=== PATIENT | female | born 1965 | race Caucasian/White ===

== ENCOUNTER → 2017-12-08 09:09 | Outpatient (CLI) | payer OTHER, SELFPAY ==
--- NOTE | 2017-12-08 09:11 | FL_ITS ---
EXAM: Barium swallow/esophagram. INDICATION: ORDERING PHYSICIAN: Louie Michel MD PATIENT AGE: 52 years COMPARISON: None TECHNIQUE: In the upright position the patient was observed to swallow barium in both the AP and lateral view. The cervical esophagus was examined under fluoroscopy with images obtained. The patient was then placed prone in the right anterior oblique position and was observed to swallow barium with Valsalva technique . FLUOROSCOPY TIME: 55 seconds FINDINGS: There was no evidence of aspiration. There was normal peristalsis. There was some minimal protrusion of the mid aspect of the esophagus toward the left. This however was not persistent and could be related to development of an early diverticulum. There was questionable indentation upon the left aspect of the esophagus just distal to this region however, this did not appear to persist. There is a small sliding hiatal hernia noted with Valsalva. No mucosal irregularities apparent. IMPRESSION: 1. Small sliding hiatal hernia noted with Valsalva. 2. Minimal protrusion of the mid aspect esophagus toward the left and could be related to early traction diverticulum. Follow-up may confirm.
== END ==
PROVIDERS: Family Provider Emergency Medicine; PCP Physician Assistant; Visit Provider Surgery
DX: R13.10 Dysphagia, unspecified (principal)
CPT/HCPCS: 74220

== ENCOUNTER → 2018-02-09 09:06 | Outpatient (REF) | payer OTHER, SELFPAY ==
[2018-02-09 14:01] LABS: Basophils % 0.7 % (0.1-2.0); Eosinophils # 0.2 K/mm3 (0.0-0.4); Eosinophils % 3.4 % (0.1-12.0); Hematocrit 39.6 % (37.0-47.0); Hemoglobin 12.9 g/dL (12.2-16.2); Lymphocytes # 1.8 K/mm3 (0.7-4.5); Lymphocytes % 30.3 K/mm3 (10-50); Mean Corpuscular HGB Conc 32.7 g/dL (31.8-35.4); Mean Corpuscular Hemoglobin 29.5 pg (27.0-31.2); Mean Corpuscular Volume 90.3 fl (81-99); Mean Platelet Volume 8.7 fl (7.4-10.4); Monocytes # 0.2 K/mm3 (0.1-1.0); Monocytes % 3.8 % (1.7-9.3); Neutrophils # 3.6 K/mm3 (1.8-7.8); Neutrophils % 61.8 % (37.0-80.0); Platelet Count 211 K/mm3 (142-424); Red Blood Count 4.38 M/mm3 (4.20-5.40); Red Cell Distribution Width 13.1 % (11.5-17.5); White Blood Count 5.8 K/mm3 (4.8-10.8)
[2018-02-09 14:35] LABS: Alanine Aminotransferase 24 U/L (12-78); Albumin/Globulin Ratio 1.3 (1.1-1.8); Alkaline Phosphatase 79 U/L (46-116); Anion Gap 12.3 mEq/L (5-15); Aspartate Amino Transferase 19 U/L (15-37); Bilirubin,Total 0.8 mg/dL (0.2-1.0); Blood Urea Nitrogen 13 mg/dL (7-18); Calcium 9.6 mg/dL (8.5-10.1); Carbon Dioxide 29 mmol/L (21.0-32.0); Chloride 106 mmol/L (98-107); Chol/HDL Ratio 4.3 (1-3.5); Cholesterol 217 mg/dL (140-200); Creatinine,Serum 0.84 mg/dL (0.55-1.02); Estimated Glomerular Filt Rate 71 ml/min (>60); GFR (African American) 86 ML/MIN (>60); Globulin 3.1 gm/dl (1.3-3.2); Glucose 86 mg/dL (74-106); HDL Cholesterol 50 mg/dL (29-89); LDL Cholesterol 154 mg/dL (0-130); Potassium 4.3 mmoL/L (3.5-5.1); Sodium 143 mmol/L (136-145); T4 (Thyroxine) 4.7 ug/dl (4.7-13.3); Thyroid Stimulating Hormone 82.83 uIU/ml (0.358-3.740); Total Protein,Serum 7.1 gm/dL (6.4-8.2); Triglycerides 64 mg/dL (30-200); VLDL Cholesterol 13 mg/dL (0-40)
[2018-02-10 07:44] LABS: Vitamin D 25 Hydroxy 40.2 ng/mL (30.0-100.0)
== END ==
LOC: LAB 09:06
PROVIDERS: Visit Provider Physician Assistant
DX: E03.9 Hypothyroidism, unspecified (principal)
CPT/HCPCS: 80053; 80061; 82652; 84436; 84443; 85025

== ENCOUNTER → 2018-07-08 14:38 | Outpatient (REF) | payer OTHER, SELFPAY ==
[2018-07-08 19:11] LABS: Basophils % 0.5 % (0.1-2.0); Eosinophils # 0.3 K/mm3 (0.0-0.4); Eosinophils % 5.3 % (0.1-12.0); Hematocrit 38.7 % (37.0-47.0); Hemoglobin 12.2 g/dL (12.2-16.2); Lymphocytes # 1.7 K/mm3 (0.7-4.5); Lymphocytes % 33.3 K/mm3 (10-50); Mean Corpuscular HGB Conc 31.5 g/dL (31.8-35.4); Mean Corpuscular Volume 88.8 fl (81-99); Mean Platelet Volume 8.2 fl (7.4-10.4); Monocytes # 0.3 K/mm3 (0.1-1.0); Monocytes % 5.6 % (1.7-9.3); Neutrophils # 2.8 K/mm3 (1.8-7.8); Neutrophils % 55.3 % (37.0-80.0); Platelet Count 229 K/mm3 (142-424); Red Blood Count 4.36 M/mm3 (4.20-5.40); Red Cell Distribution Width 13.4 % (11.5-17.5); White Blood Count 5.1 K/mm3 (4.8-10.8)
[2018-07-08 19:25] LABS: Alanine Aminotransferase 18 U/L (12-78); Albumin Level 3.7 gm/dL (3.4-5.0); Albumin/Globulin Ratio 1.2 (1.1-1.8); Alkaline Phosphatase 92 U/L (46-116); Anion Gap 12.2 mEq/L (5-15); Aspartate Amino Transferase 14 U/L (15-37); Bilirubin,Total 0.5 mg/dL (0.2-1.0); Blood Urea Nitrogen 14 mg/dL (7-18); Calcium 9.1 mg/dL (8.5-10.1); Carbon Dioxide 28 mmol/L (21.0-32.0); Chloride 106 mmol/L (98-107); Chol/HDL Ratio 3.6 (1-3.5); Cholesterol 172 mg/dL (140-200); Creatinine,Serum 0.71 mg/dL (0.55-1.02); Estimated Glomerular Filt Rate 86 ml/min (>60); GFR (African American) 104 ML/MIN (>60); Globulin 3.1 gm/dl (1.3-3.2); Glucose 97 mg/dL (74-106); HDL Cholesterol 48 mg/dL (29-89); LDL Cholesterol 110 mg/dL (0-130); Potassium 4.2 mmoL/L (3.5-5.1); Sodium 142 mmol/L (136-145); T4 (Thyroxine) 10.7 ug/dl (4.7-13.3); Thyroid Stimulating Hormone 0.02 uIU/ml (0.358-3.740); Total Protein,Serum 6.8 gm/dL (6.4-8.2); Triglycerides 72 mg/dL (30-200); VLDL Cholesterol 14 mg/dL (0-40)
[2018-07-10 10:21] LABS: Vitamin D 25 Hydroxy 43.6 ng/mL (30.0-100.0)
== END ==
LOC: LAB 14:38
PROVIDERS: PCP Physician Assistant; Visit Provider Physician Assistant
DX: E03.9 Hypothyroidism, unspecified (principal)
CPT/HCPCS: 80053; 80061; 82652; 84436; 84443; 85025

== ENCOUNTER → 2019-02-11 15:02 | Outpatient (CLI) | payer OTHER, SELFPAY ==
--- NOTE | 2019-02-11 15:05 | MM_ITS ---
MM Dig screening mamm BI w/CAD ORDERING PHYSICIAN : MARIALUISA Greenwood PATIENT AGE: 53 years GENDER: Female COMPARISON: August INDICATION: Routine screening mammogram. No hormones no new complaints. Family history. Mother with breast cancer in her 40s TECHNIQUE: Standard CC and MLO images were obtained. R2 CAD reviewed. FINDINGS: Moderately dense breast pattern throughout the breast, with most dense fibroglandular evident towards upper-outer quadrant. This similar pattern to previous studies with no new areas of significant concern. Mammography is decreased sensitivity in breast of this increased density but prior films are helpful with no discrete new areas of concern in either breast. Areas of density seen today at been seen previously. A stable dense breast pattern with no new areas of significant concern. RIGHT BREAST:No new areas of significant concern pattern pattern similar to studies dating back to 2013 I would encourage follow-up in one year in this patient given her dense pattern & if any focal areas arise low threshold for pursuing ultrasound would be warranted to in order to augment mammography screening] of this increased density ------IMPRESSION: 1. No new areas of significant concern ..... Fairly dense breast bilaterally which does decrease sensitivity of mammography; but I see no discrete new findings or significant new areas of significant concern... But would emphasize encourage follow-up in one year.. ... & if any focal palpable areas arise , low threshold for pursuing ultrasound would be warranted suggested to in order to augment screening mammography in breast of this increased density. BI-RADS Category: 2 Benign Finding(s) RECOMMENDED FOLLOW-UP: 1YR 1 YEAR FOLLOW-UP (A letter has been sent to the patient regarding results of the study.)
== END ==
PROVIDERS: PCP Physician Assistant; Visit Provider Physician Assistant
DX: Z12.31 Encounter for screening mammogram for malignant neoplasm of breast (principal)
CPT/HCPCS: 77067

== ENCOUNTER → 2019-02-15 18:18 | Outpatient (CLI) | payer OTHER, SELFPAY ==
[2019-02-15 18:55] LABS: Basophils % 0.5 % (0.1-2.0); Eosinophils # 0.2 K/mm3 (0.0-0.4); Eosinophils % 3.4 % (0.1-12.0); Hemoglobin 12.9 g/dL (12.2-16.2); Lymphocytes # 1.4 K/mm3 (0.7-4.5); Lymphocytes % 27.1 % (10-50); Mean Corpuscular Hemoglobin 29.1 pg (27.0-31.2); Mean Corpuscular Volume 88.3 fl (81-99); Mean Platelet Volume 8.5 fl (7.4-10.4); Monocytes # 0.3 K/mm3 (0.1-1.0); Monocytes % 5.7 % (1.7-9.3); Neutrophils # 3.3 K/mm3 (1.8-7.8); Neutrophils % 63.3 % (37.0-80.0); Platelet Count 206 K/mm3 (142-424); Red Blood Count 4.42 M/mm3 (4.20-5.40); Red Cell Distribution Width 13.6 % (11.5-17.5); White Blood Count 5.2 K/mm3 (4.8-10.8)
[2019-02-15 19:58] LABS: Alanine Aminotransferase 24 U/L (12-78); Albumin Level 3.9 gm/dL (3.4-5.0); Albumin/Globulin Ratio 1.4 (1.1-1.8); Alkaline Phosphatase 80 U/L (46-116); Anion Gap 16.2 mEq/L (5-15); Aspartate Amino Transferase 14 U/L (15-37); Bilirubin,Total 0.8 mg/dL (0.2-1.0); Blood Urea Nitrogen 17 mg/dL (7-18); Carbon Dioxide 24 mmol/L (21.0-32.0); Chloride 107 mmol/L (98-107); Cholesterol 200 mg/dL (140-200); Creatinine,Serum 0.95 mg/dL (0.55-1.02); Estimated Glomerular Filt Rate 61 ml/min (>60); GFR (African American) 74 ML/MIN (>60); Globulin 2.8 gm/dl (1.3-3.2); Glucose 95 mg/dL (74-106); HDL Cholesterol 50 mg/dL (29-89); LDL Cholesterol 138 mg/dL (0-130); Potassium 4.2 mmoL/L (3.5-5.1); Sodium 143 mmol/L (136-145); T4 (Thyroxine) 4.8 ug/dl (4.7-13.3); Thyroid Stimulating Hormone 5.27 uIU/ml (0.358-3.740); Total Protein,Serum 6.7 gm/dL (6.4-8.2); Triglycerides 59 mg/dL (30-200); VLDL Cholesterol 12 mg/dL (0-40)
[2019-02-17 08:32] LABS: Vitamin D 25 Hydroxy 34.4 ng/mL (30.0-100.0)
== END ==
PROVIDERS: Visit Provider Physician Assistant
DX: E03.9 Hypothyroidism, unspecified (principal)
CPT/HCPCS: 80053; 80061; 82652; 84436; 84443; 85025

== ENCOUNTER → 2019-06-09 11:18 | Outpatient (CLI) | payer OTHER, SELFPAY ==
--- NOTE | 2019-06-09 11:21 | CA_ITS ---
APPROVED REPORT EXAM: Comprehensive 2D, Doppler, and color-flow Echocardiogram Taxation Consultant: Sylvia Hare RDCS Ht: 5 ft 4 in Wt: 138lbs BSA: 1.67 BP: 126/72 mmHg Indications: avr porcine 07 soa AI LV DILATATION MR 2D Dimensions LVOT 2.20 cm (M/F) 1.5-2.5 M-Mode Dimensions RVDd 1.60 cm (0.9-2.6) LA Diam 3.20 cm (1.9-4.0) LVDd 6.60 cm (3.5-5.7) Ao Diam 4.00 cm (2.0-3.7) LVDs 5.20 cm (3.5-5.7) AV Cusp 2.40 cm (1.5-2.6) IVSd 0.90 cm (0.6-1.1) PWd 0.80 cm (0.6-1.1) EF (Teich) 42.00% FS 21.20% EDV (Teich) 224.00 mL ESV (Teich) 130.00 mL LV Diastology E/A Ratio 0.9 MED E' 8.09 (< 7 cm/sec) E'/MED E' Ratio 8.40 (>14) LAT E' 10.30 (<10 cm/sec) E/LAT E' Ratio 6.60 (>14) Aortic Valve LVOT Max 161.00 (70-110 cm/s) LVOT VTI 37.40 cm AoV Peak Moi. 223.00 (50-130 cm/s) AI PHT 280.00 ms AO Peak GR. 20.00 mmHg AO Mean GR. 10.00 (<5 mmHg) AO VTI 48.80 (18-25 cm) MARINO (VTI) 2.91 (2.5-4.5 cm2) Mitral Valve MV E Max Moi. 67.60 (40-130 cm/s) MV A Velocity 79.00 (40-130 cm/s) E/A Ratio 0.90 Left Ventricle Left atrium is mildly enlarged, left ventricle is mildly dilated, visually estimated ejection fraction approximately 45%. There is no regional wall motion abnormality. Diastolic parameters are inconclusive. Right Ventricle Right atrium and right ventricular normal size and contractility. Aortic Valve There is a bioprosthetic valve noted in the aortic position, the valve is well-seated. There are degenerative changes presence of the prosthetic valve leaflet, there is severe aortic insufficiency, the pressure half-time for aortic regurgitation jet velocity is 254 ms. The aortic outflow velocity is mildly increased to 2.23 m/s, resulting in a mean gradient across valve of 10 mmHg, this does not represent any significant aortic outflow obstruction. Mitral Valve Mitral valve leaflets are minimally thickened, there is mild mitral regurgitation, there is no premature closure of the mitral valve leaflets seen. Tricuspid Valve Tricuspid valve is grossly normal, there is mild tricuspid regurgitation, tricuspid regurgitation jet velocity is inadequate for calculation of the right ventricular systolic pressure. Pulmonic Valve Pulmonic valve is poorly visualized. Great Vessels Aortic root is mildly enlarged measuring 4.0 cm. Pericardium No significant pericardial effusion noted. Conclusion 1. Mildly low left atrium, mildly dilated left ventricle, visually estimated ejection fraction 45% with no regional wall motion abnormality. 2. Bioprosthetic valve in the aortic position, there is no significant aortic outflow obstruction, there are degenerative changes seen in the bioprosthetic valve leaflet, there is severe aortic insufficiency. There is no premature closure of the mitral valve leaflet. The pressure half-time for aortic regurgitation jet is 254 ms. 3. Mild mitral and tricuspid regurgitation 4. No significant pericardial effusion noted. Electronically signed by : Kaleb Pennington, 06/10/2019 15:21:54
== END ==
PROVIDERS: PCP Physician Assistant; Visit Provider Internal Medicine Cardiovascular Disease
DX: R06.09 Other forms of dyspnea (principal); R42 Dizziness and giddiness; R07.89 Other chest pain; R01.1 Cardiac murmur, unspecified; E03.9 Hypothyroidism, unspecified; G47.33 Obstructive sleep apnea (adult) (pediatric); Z68.25 Body mass index [BMI] 25.0-25.9, adult; Z95.2 Presence of prosthetic heart valve
CPT/HCPCS: 93306

== ENCOUNTER 2019-07-05 21:27 | Observation (INO) ==
[2019-07-05 21:39] LABS: Basophils # 0.1 K/mm3 (0-0.2); Basophils % 0.8 % (0.1-2.0); Eosinophils # 0.3 K/mm3 (0.0-0.4); Eosinophils % 3.7 % (0.1-12.0); Hemoglobin 11.9 g/dL (12.2-16.2); Lymphocytes # 1.8 K/mm3 (0.7-4.5); Lymphocytes % 24.9 % (10-50); Mean Corpuscular HGB Conc 29.8 g/dL (31.8-35.4); Mean Corpuscular Volume 93.1 fl (81-99); Mean Platelet Volume 7.8 fl (7.4-10.4); Monocytes # 0.6 K/mm3 (0.1-1.0); Monocytes % 8.5 % (1.7-9.3); Neutrophils # 4.4 K/mm3 (1.8-7.8); Neutrophils % 62.1 % (37.0-80.0); Platelet Count 261 K/mm3 (142-424); Red Cell Distribution Width 13.5 % (11.5-17.5); White Blood Count 7.1 K/mm3 (4.8-10.8)
[2019-07-05 21:53] LABS: Alanine Aminotransferase 16 U/L (12-78); Albumin Level 3.8 gm/dL (3.4-5.0); Alkaline Phosphatase 96 U/L (46-116); Anion Gap 10.7 mEq/L (5-15); Aspartate Amino Transferase 12 U/L (15-37); Bilirubin,Direct 0.1 mg/dL (0.0-0.2); Bilirubin,Indirect 0.4 mg/dL (0.0-0.9); Bilirubin,Total 0.5 mg/dL (0.2-1.0); Blood Urea Nitrogen 17 mg/dL (7-18); Calcium 9.1 mg/dL (8.5-10.1); Carbon Dioxide 29 mmol/L (21.0-32.0); Chloride 105 mmol/L (98-107); Glucose 92 mg/dL (74-106); Sodium 141 mmol/L (136-145); Total Protein,Serum 7.6 gm/dL (6.4-8.2)
--- NOTE | 2019-07-05 23:21 | Emergency Department Note ---
ED Disposition Clinical Impression: Aortic valvular disease Chest pain Qualifiers: Chest pain type: precordial pain Qualified Code(s): R07.2 - Precordial pain Disposition: Admitted as Observation Condition on Discharge: Good Referrals: Nora Foster PA [Primary Care Provider] - - Critical Care Critical Care Time: No Attestation: On 07/05/19, the high probability of a clinically significant, sudden or life threatening deterioration of the following system(s) required my full and direct attention, intervention and personal management. The time I documented below is in addition to time spent performing reported procedures but includes the following listed in this critical care notation. Medical Decision Making - Medical Records Medical records reviewed: Yes: I reviewed the patient's medical records. - Leon Inquiry Pt receiving controlled substance: No Vital Signs: 07/05/19 21:27 Temperature 98.4 F Temperature Source Oral Pulse Rate [Right] 87 Respiratory Rate 18 Blood Pressure [Right Arm] 142/63 H Blood Pressure Mean [Right Arm] 89 02 Sat by Pulse Oximetry 98 - Lab Data Lab results reviewed: Yes: I reviewed the patient's lab results. Lab Results 07/05/19 21:31: WBC 7.1, RBC 4.30, Hgb 11.9 L, Hct 40.0, MCV 93.1, MCH 27.7, MCHC 29.8 L, RDW 13.5, Plt Count 261, MPV 7.8, Neut % (Auto) 62.1, Lymph % (Auto) 24.9, [place] % (Auto) 8.5, Eos % (Auto) 3.7, Baso % (Auto) 0.8, Neut # (Auto) 4.4, Lymph # (Auto) 1.8, [place] # (Auto) 0.6, Eos # (Auto) 0.3, Baso # (Auto) 0.1 07/05/19 21:31: Sodium 141, Potassium 3.7, Chloride 105, Carbon Dioxide 29, Anion Gap 10.7, BUN 17, Creatinine 0.97, Estimated Creat Clear 69, Estimated GFR 60, Est GFR ( Amer) 72, Glucose 92, Calcium 9.1, Total Bilirubin 0.5, Direct Bilirubin 0.1, Indirect Bilirubin 0.4, AST 12 L, ALT 16, Alkaline Phospha tase 96, Troponin I < 0.02, Total Protein 7.6, Albumin 3.8 Result diagrams: 07/05/19 21:31 07/05/19 21:31 Orders (Tests/Meds): ED MEDICATIONS Generic Name Dose Route Start Last Admin Trade Name Freq PRN Reason Stop Dose Admin Sodium Chloride 1,000 mls @ 999 mls/hr 07/05/19 21:45 07/05/19 21:38 Sod Chlor 0.9% 1000ml Bag IV 07/05/19 22:45 999 mls/hr .Q1H1M PETAR Administration Discontinued Medications Generic Name Dose Route Start Last Admin Trade Name Truongq PRN Reason Stop Dose Admin Aspirin 324 mg 07/05/19 21:31 07/05/19 21:38 Aspirin 81mg Chewable Tablet PO 07/05/19 21:32 324 mg ONCE ONE Administration Ketorolac Tromethamine 30 mg 07/05/19 21:31 07/05/19 21:38 Toradol 30mg/Ml Vial IV 07/05/19 21:32 30 mg ONCE ONE Administration Methylprednisolone Sodium Succinate 125 mg 07/05/19 23:11 07/05/19 23:12 Solu-Medrol 125mg/2ml Vial IV 07/05/19 23:12 125 mg ONCE ONE Administration Nitroglycerin 1 gm 07/05/19 22:26 07/05/19 22:35 Nitroglycerin 1 Inch Oint Udp TD 07/05/19 22:27 1 gm ONCE ONE Administration ORDERS Category Date Time Status XR chest 2V Stat Exams 07/05/19 21:31 Taken XR shoulder LT min 2V Stat Exams 07/05/19 21:31 Taken CRP [C-Reactive Protein] Stat Lab 07/05/19 21:31 Received Erythrocyte Sedimentation Rate Stat Lab 07/05/19 21:31 Received - Radiology Data #1 Image(s): Chest Image Reviewed: Yes I reviewed the patient's radiology image Preliminary Findings: Normal/NAD - ECG Data Tracing #1 Normal Sinus Rhythm: Yes Ischemic changes: non-specific ST-T wave changes - Physician Consults Physician Consulted: li Reason -: Pt condition Chest Pain HPI - General Chief Complaint: Chest Pain Stated Complaint: chest pain Time Seen by Provider: 07/05/19 21:55 Mode of Arrival: Ambulatory Source of Information: Patient, Relative, Medical Record Limitations: No Limitations Description of Symptoms (Recalled from ER Triage Doc. by RN): Pt presents with left sided CP that radiates to her left shoulder, denies soa, n/v, or dizzyness. Pt states its very sore to move. - History of Present Illness HPI narrative: about 24 hr hx of lt sided chest pain rad to lt scapula - no fever or rash and worse with certain mov and lying down - has hx of recent aortic valve surg MD complaint: chest pain indicative of cardiac Onset (ago): hour(s) Duration: constant Activity at onset: during rest Pain location: left chest Severity: moderate Quality: sharp Pain radiation: back Exacerbating factors: supine Risk Factors for CAD: Family Hx of CAD Treatments prior to or on arrival for Cardiac Chest Pain: none - CAMI Score for Non-Stemi Age of Patient: 50-59 years old Heart Rate: 50-69 bpm Systolic Blood Pressure: 140-159 mmHg Serum Creatinine: 0.80-1.19 mg/dl CHF [place] Class: I-No CHF Other Risk Factors: None Non-Stemi Risk Score: 75 - Related Data On Oral Contraceptives: No (valve surg ) Home Medications Medication Instructions Recorded Confirmed Clopidogrel Bisulfate [Plavix 75mg 75 mg PO DAILY 07/05/19 07/05/19 Tab] Levothyroxine Sodium [Synthroid] 137 mcg PO DAILY 07/05/19 07/05/19 Allergies Allergy/AdvReac Type Severity Reaction Status Date / Time No Known Allergies Allergy Verified 06/09/19 10:23 [facility] History - Hepatitis A Screen Drug use history?: No High risk sexual behaviors?: No History of sexually transmitted infection?: No Currently employed?: No Childcare worker?: No Do you have indoor plumbing?: Yes Do you have electricity?: Yes Attestation statement:: This patient has been screened for Hepatitis A risk factors. I have reviewed the patient's past medical history: Yes Medical History: Reports:: Valvular Heart Disease Other Medical History: Reports: Hypothyroidism Other Surgeries: Yes: Cardiac Surgery, Cholecystectomy, EGD Amputation: No Fractures: No - Social History Smoking Status: Never smoker Alcohol Intake: never Alcohol Intake Frequency:: other Substance Use Type: denies use Occupational Status: employed Family Hx:: Cancer, Hypertension, Diabetes, Stroke Comment: Brother-CVA@59. Brother-CABG@50's. Sister-AFIB ROS Obtained: Yes All systems reviewed & no additional complaints - Constitutional Constitutional: Denies fever(s) - Eyes Eyes: Denies decreased night vision - ENT Ears, Nose, Mouth, and Throat: Denies sore throat - Cardiovascular Cardiovascular: Reports chest pain, Denies dyspnea - Respiratory Respiratory: No cough - Gastrointestinal Gastrointestingal: Denies: abdominal pain - Genitourinary Female Genitourinary: Denies hematuria - Musculoskeletal Musculoskeletal: Denies joint pain - Integumentary/Breasts Skin/Breast: Denies rash - Neurologic Neurologic: Denies seizure-like activity Physical Exam - General General appearance: alert - Head Head exam: normocephalic - Eye Eye exam: Present: PERRL, EOMI - ENT ENT exam: Present: mucous membranes dry - Neck Neck exam: Present: trachea midline - Respiratory Respiratory exam: Present: normal lung sounds bilaterally. Absent: respiratory distress - Cardiovascular Cardiovascular exam: Present: regular rate, systolic murmur, rubs - Abdominal Exam Abdominal exam: Present: soft - Extremities Exam Extremities exam: Present: full ROM. Absent: calf tenderness - Neurological Exam Neurological exam: Present: alert, oriented X3, CN II-XII intact - Psychiatric Psychiatric exam: Present: normal affect - Skin Skin exam: Absent: rash
[2019-07-06 07:03] LABS: Basophils % 0.3 % (0.1-2.0); Eosinophils % 0.2 % (0.1-12.0); Hematocrit 38.1 % (37.0-47.0); Hemoglobin 11.7 g/dL (12.2-16.2); Lymphocytes # 0.5 K/mm3 (0.7-4.5); Lymphocytes % 11.6 % (10-50); Mean Corpuscular HGB Conc 30.6 g/dL (31.8-35.4); Mean Corpuscular Volume 92.6 fl (81-99); Mean Platelet Volume 7.6 fl (7.4-10.4); Monocytes # 0.1 K/mm3 (0.1-1.0); Monocytes % 2.3 % (1.7-9.3); Neutrophils % 85.5 % (37.0-80.0); Platelet Count 231 K/mm3 (142-424); Red Blood Count 4.11 M/mm3 (4.20-5.40); Red Cell Distribution Width 13.4 % (11.5-17.5); White Blood Count 4.6 K/mm3 (4.8-10.8)
--- NOTE | 2019-07-06 07:16 | Pharmacy Consult Notes ---
[facility] Pharmacy VTE Monitoring - Patient Demographics Admission date: 07/06/19 Report Date: 07/06/19 Time: 07:15 Allergies/Adverse Reactions: Patient Allergies No Known Allergies Allergy (Verified 06/09/19 10:23) Height: 1.63 m Weight: 67.585 kg Patient Problems: Current Active Problems Chest pain (Acute) Aortic valvular disease (Acute) - VTE Risk Labs: VTE Related Lab Results Hgb 11.9 g/dL (12.2-16.2) L 07/05/19 21:31 Hct 40.0 % (37.0-47.0) 07/05/19 21:31 Plt Count 261 K/mm3 (142-424) 07/05/19 21:31 BUN 17 mg/dL (7-18) 07/05/19 21:31 Creatinine 0.97 mg/dL (0.55-1.02) 07/05/19 21:31 Estimated Creat Clear 69 mL/min (50-200) 07/05/19 21:31 Was VTE Risk Assessment Performed: Yes VTE Score: 2 VTE Risk Level: Very Low Risk Clinical Trial Participant: No - Prophylaxis VTE Prophylaxis Ordered?: Yes Types of VTE Prophylaxis: TEDS Knee High
[2019-07-06 07:19] LABS: Anion Gap 14.3 mEq/L (5-15)
--- NOTE | 2019-07-06 10:09 | Consult Report ---
<Luly Barfield - Last Filed: 07/06/19 10:06> History of Present Illness Consult date: 07/06/19 Requesting physician: Tayo Turner Consult reason: chest pain Chief complaint: Chest pain Additional Medical History:: 1. severe AI, s/p repeat valve replacement/TAVR, 06.27.19 2. Thyroid disease History of present illness: This is a 53-year-old female who presented to the emergency department with complaints of chest pain. The patient had a repeat aortic valve surgery with TAVR on June 27, 2019. She states that she had a lie flat for several hours following this procedure. After the procedure was over she started to have left shoulder pain while she was lying flat. She states that the left shoulder pain has been persistent since that time. Sometimes it does get severe. She states that the night before last night the pain started radiating into her chest but only mildly and then last night the shoulder pain in her left shoulder was severe and was radiating to her chest. She states that her shoulder is more painful than her chest but she was concerned due to her recent surgery. She states that she does get a little short of breath at times. She states that last night the pain was severe. She states that Aleve and Advil do help to improve the pain at times as well. She denies any fever, chills, nausea, vomiting, diarrhea, PND or orthopnea. The patient has ruled out for an NC. [facility] History I have reviewed the patient's past medical history: Yes Medical History: Reports:: Valvular Heart Disease Denies:: Cancer, Diabetes Mellitus Type 1, Diabetes Mellitus Type 2, Internal Pacemaker, MRSA *Have you ever received a pneumonia vaccine?: No *Have you received a flu vaccine this season?: No Other Medical History: Reports: Hypothyroidism Other Surgeries: Yes: Cardiac Surgery, Cholecystectomy, EGD. No: Pacemaker Amputation: No Fractures: No - *Social History Educational Level: Completed College Smoking Status: Never smoker Alcohol Intake: never Alcohol Intake Frequency:: other Substance Use Type: denies use *Occupational Status:: employed Household Members: none, other *Travel in the last 8 weeks: None Family Hx:: Cancer, Hypertension, Diabetes, Stroke Meds Home Medications Medication Instructions Recorded Confirmed Type Clopidogrel Bisulfate [Plavix 75mg 75 mg PO DAILY 07/05/19 07/06/19 History Tab] Levothyroxine Sodium 137 mcg PO DAILY 07/05/19 07/06/19 History [Levothyroxine 137mcg (0.137mg) Tab] Allergies Allergy/AdvReac Type Severity Reaction Status Date / Time No Known Allergies Allergy Verified 06/09/19 10:23 Review of Systems - Review of Systems Review of systems:: pertinent systems reviewed and negative unless documented below - *Cardiovascular Reports chest pain, Reports chest pain at rest, Reports chest pain with activity, Reports shortness of breath - *Respiratory Reports shortness of breath - *Musculoskeletal Reports joint pain (Left shoulder) - *Neurologic Denies seizure-like activity Exam Vital signs and Labs for Last 24 Hours: Temp Pulse Resp BP Pulse Ox 97.8 F 68 18 136/62 96 07/06/19 08:00 07/06/19 08:00 07/06/19 08:00 07/06/19 08:00 07/06/19 08:00 Laboratory Results - last 24 hr 07/05/19 21:31: WBC 7.1, RBC 4.30, Hgb 11.9 L, Hct 40.0, MCV 93.1, MCH 27.7, MCHC 29.8 L, RDW 13.5, Plt Count 261, MPV 7.8, Neut % (Auto) 62.1, Lymph % (Auto) 24.9, [place] % (Auto) 8.5, Eos % (Auto) 3.7, Baso % (Auto) 0.8, Neut # (Auto) 4.4, Lymph # (Auto) 1.8, [place] # (Auto) 0.6, Eos # (Auto) 0.3, Baso # (Auto) 0.1 07/05/19 21:31: Sodium 141, Potassium 3.7, Chloride 105, Carbon Dioxide 29, Anion Gap 10.7, BUN 17, Creatinine 0.97, Estimated Creat Clear 69, Estimated GFR 60, Est GFR ( Amer) 72, Glucose 92, Calcium 9.1, Total Bilirubin 0.5, Direct Bilirubin 0.1, Indirect Bilirubin 0.4, AST 12 L, ALT 16, Alkaline Phosphatase 96, Troponin I < 0.02, Total Protein 7.6, Albumin 3.8 07/05/19 21:31: ESR 38 H 07/05/19 21:31: C-Reactive Protein 0.9 07/06/19 02:40: Troponin I < 0.02 07/06/19 06:56: Troponin I < 0.02 07/06/19 06:56: WBC 4.6 L D, RBC 4.11 L, Hgb 11.7 L, Hct 38.1, MCV 92.6, MCH 28.4, MCHC 30.6 L, RDW 13.4, Plt Count 231, MPV 7.6, Neut % (Auto) 85.5 H, Lymph % (Auto) 11.6, [place] % (Auto) 2.3, Eos % (Auto) 0.2, Baso % (Auto) 0.3, Neut # (Auto) 4.0, Lymph # (Auto) 0.5 L, [place] # (Auto) 0.1, Eos # (Auto) 0.0, Baso # (Auto) 0.0 07/06/19 06:56: Sodium 141, Potassium 4.3, Chloride 108 H, Carbon Dioxide 23 D, Anion Gap 14.3, BUN 16, Creatinine 0.87, Estimated Creat Clear 79, Estimated GFR 68, Est GFR ( Amer) 82, Glucose 157 H D, Calcium 9.0 I & O for Last 24 hours: Intake & Output 07/03/19 07/04/19 07/05/19 07/06/19 23:59 23:59 23:59 23:59 Intake Total 287 / 287 Balance 287 / 287 Weight 149 lb 149 lb Narrative: EKG is sinus rhythm with LVH and old septal NC pattern. Her telemetry strip is sinus rhythm with a rate of 76. - Constitutional no acute distress, average body habitus - *Routine HEENT Exam Head: Present: normocephalic, atraumatic Eye: Present: EOMI, PERRL ENT: Present: mucous membranes moist - *Routine Neck Exam Present: supple, full ROM, carotid bruit (Bilateral carotid bruits, left greater than right), normal carotid upstroke. Absent: JVD, lymphadenopathy - *Routine Respiratory Exam Present: CTA bilaterally - *Routine Cardiovascular Exam Present: RRR, Normal S1, Normal S2, murmur (2 out of 6 murmur) - *Routine Abdominal Exam Present: soft, normoactive bowel sounds. Absent: tenderness, distended - *Routine Extremities Exam Present: full ROM, pulses intact, normal capillary refill. Absent: cyanosis, clubbing, edema - *Routine Skin Exam Present: intact, warm. Absent: erythema, rash - *Routine Neurological Exam Present: alert, oriented X3, CN II-XII intact. Absent: sensory deficit, motor deficit - Routine Psychiatric Exam Present: normal affect, normal thought process - Detailed Eye Exam Eyelids: Left normal inspection Assessment and Plan (1) Chest pain Status: Acute Category: Medical Code(s): R07.9 - Chest pain, unspecified (2) Status post transcatheter aortic valve replacement (TAVR) using bioprosthesis Status: Chronic Category: Surgical Code(s): Z95.3 - Presence of xenogenic heart valve (3) Abnormal EKG Status: Acute Category: Medical Code(s): R94.31 - Abnormal electrocardiogram [ECG] [EKG] (4) Bilateral carotid bruits Status: Acute Category: Medical Code(s): R09.89 - Other specified symptoms and signs involving the circulatory and respiratory systems (5) Aortic valvular disease Status: Acute Category: Medical Code(s): I35.9 - Nonrheumatic aortic valve disorder, unspecified - Assessment and plan all Dx Assessment and Plan for all problems:: Plan: 1. The patient was admitted to the hospital with chest pain. The patient did have TAVR completed on June 27, 2019. She states since that time she has had severe left shoulder pain that is radiating into her chest. She states that it got really bad through the night last night and that is why she came into the emergency department. The patient has ruled out for an NC at this point. However, she does have an abnormal EKG. The patient reports that she did have a CTA of her chest while at prior to them doing the TAVR. We will get the results of the CTA of her chest from [facility]. 2. If the CTA of her chest is negative for coronary artery disease then the patient can be discharged home. If the CTA of her chest does show she has coronary artery disease, then the patient will need an ischemic evaluation prior to discharge home. 3. Her blood pressure is well controlled. 4. Her LDL goal is less than 100. 5. Her echocardiogram is currently pending. We will have Dr. Quispe review these results. 6. She is status post TAVR as mentioned before no groin issues from her TAVR access site. 7. Further recommendations will be made pending the patient's response to treatment and the results of her echocardiogram and CTA from [facility]. Thank you for the opportunity to help participate in the care of this patient. <Kane Quispe - Last Filed: 07/06/19 16:06> Exam Vital signs and Labs for Last 24 Hours: Temp Pulse Resp BP Pulse Ox 98.0 F 71 18 138/70 97 07/06/19 12:00 07/06/19 12:00 07/06/19 12:00 07/06/19 12:00 07/06/19 12:00 Laboratory Results - last 24 hr 07/05/19 21:31: WBC 7.1, RBC 4.30, Hgb 11.9 L, Hct 40.0, MCV 93.1, MCH 27.7, MCHC 29.8 L, RDW 13.5, Plt Count 261, MPV 7.8, Neut % (Auto) 62.1, Lymph % (Auto) 24.9, [place] % (Auto) 8.5, Eos % (Auto) 3.7, Baso % (Auto) 0.8, Neut # (Auto) 4.4, Lymph # (Auto) 1.8, [place] # (Auto) 0.6, Eos # (Auto) 0.3, Baso # (Auto) 0.1 07/05/19 21:31: Sodium 141, Potassium 3.7, Chloride 105, Carbon Dioxide 29, Anion Gap 10.7, BUN 17, Creatinine 0.97, Estimated Creat Clear 69, Estimated GFR 60, Est GFR ( Amer) 72, Glucose 92, Calcium 9.1, Total Bilirubin 0.5, Direct Bilirubin 0.1, Indirect Bilirubin 0.4, AST 12 L, ALT 16, Alkaline Phosphatase 96, Troponin I < 0.02, Total Protein 7.6, Albumin 3.8 07/05/19 21:31: ESR 38 H 07/05/19 21:31: C-Reactive Protein 0.9 07/06/19 02:40: Troponin I < 0.02 07/06/19 06:56: Troponin I < 0.02 07/06/19 06:56: WBC 4.6 L D, RBC 4.11 L, Hgb 11.7 L, Hct 38.1, MCV 92.6, MCH 28.4, MCHC 30.6 L, RDW 13.4, Plt Count 231, MPV 7.6, Neut % (Auto) 85.5 H, Lymph % (Auto) 11.6, [place] % (Auto) 2.3, Eos % (Auto) 0.2, Baso % (Auto) 0.3, Neut # (Auto) 4.0, Lymph # (Auto) 0.5 L, [place] # (Auto) 0.1, Eos # (Auto) 0.0, Baso # (Auto) 0.0, Total Counted 100, Neutrophils % (Manual) 87 H, Band Neutrophils % 1.0, Lymphocytes % (Manual) 5 L, Monocytes % (Manual) 6, Eosinophils % (Manual) 1, Platelet Estimate Normal, RBC Morphology Normal 07/06/19 06:56: Sodium 141, Potassium 4.3, Chloride 108 H, Carbon Dioxide 23 D, Anion Gap 14.3, BUN 16, Creatinine 0.87, Estimated Creat Clear 79, Estimated GFR 68, Est GFR ( Amer) 82, Glucose 157 H D, Calcium 9.0 I & O for Last 24 hours: Intake & Output 07/04/19 07/05/19 07/06/19 07/07/19 11:59 11:59 11:59 11:59 Intake Total 287 / 287 Balance 287 / 287 Weight 149 lb Assessment and Plan (1) Chest pain Status: Acute Category: Medical Code(s): R07.9 - Chest pain, unspecified (2) Status post transcatheter aortic valve replacement (TAVR) using bioprosthesis Status: Chronic Category: Surgical Code(s): Z95.3 - Presence of xenogenic heart valve (3) Abnormal EKG Status: Acute Category: Medical Code(s): R94.31 - Abnormal electrocardiogram [ECG] [EKG] (4) Bilateral carotid bruits Status: Acute Category: Medical Code(s): R09.89 - Other specified symptoms and signs involving the circulatory and respiratory systems (5) Aortic valvular disease Status: Acute Category: Medical Code(s): I35.9 - Nonrheumatic aortic valve disorder, unspecified (6) Hypothyroidism (acquired) Status: Acute Category: Medical Code(s): E03.9 - Hypothyroidism, unspecified
[2019-07-06 12:17] LABS: Eosinophils % 1 % (0-3); Lymphocytes % 5 % (10-50); Monocytes % 6 % (2-9); Neutrophils % 87 % (42-76); Total Cells Counted 100
[2019-07-06 12:22] LABS: RBC Morphology Normal
--- NOTE | 2019-07-06 13:07 | H&P/Discharge Summary ---
General - General Admission date:: 07/05/19 Discharge date: 07/06/19 *Admission Date: 07/06/19 *Chief complaint: chest pain *History of present illness: this wf was seen in the ed with chest pain over the last 24 hrs - sharp lt side to scapula - she reports no fever/rash or trauma - she has no sob and no cough and pain worse with lying down - she has about 1 week ago tavr procedure at [facility] History I have reviewed the patient's past medical history: Yes Medical History: Reports:: Valvular Heart Disease Denies:: Cancer, Diabetes Mellitus Type 1, Diabetes Mellitus Type 2, Internal Pacemaker, MRSA *Have you ever received a pneumonia vaccine?: No *Have you received a flu vaccine this season?: No Other Medical History: Reports: Hypothyroidism Other Surgeries: Yes: Cardiac Surgery, Cholecystectomy, EGD. No: Pacemaker Amputation: No Fractures: No - *Social History Educational Level: Completed College Smoking Status: Never smoker Alcohol Intake: never Alcohol Intake Frequency:: other Substance Use Type: denies use *Occupational Status:: employed Household Members: none, other *Travel in the last 8 weeks: None Family Hx:: Cancer, Hypertension, Diabetes, Stroke Review of Systems - Review of Systems Review of systems:: pertinent systems reviewed and negative unless documented below - Constitutional Denies fever(s) - Eyes Denies change in vision - ENT Denies sore throat - *Cardiovascular Reports chest pain at rest, Denies shortness of breath with activity, Denies radiating jaw, neck or arm pain, Denies fast heart rate - *Respiratory Denies cough - *Gastrointestinal Denies abdominal pain - *Genitourinary Denies blood in urine - *Musculoskeletal Denies joint pain, Denies joint swelling - Integumentary/Breasts Denies rash - *Neurologic Denies headache(s), Denies seizure-like activity - Psychiatric Denies anxiety Exam Vital signs and Labs for Last 24 Hours: Temp Pulse Resp BP Pulse Ox 98.0 F 71 18 138/70 97 07/06/19 12:00 07/06/19 12:00 07/06/19 12:00 07/06/19 12:00 07/06/19 12:00 Laboratory Results - last 24 hr 07/05/19 21:31: WBC 7.1, RBC 4.30, Hgb 11.9 L, Hct 40.0, MCV 93.1, MCH 27.7, MCHC 29.8 L, RDW 13.5, Plt Count 261, MPV 7.8, Neut % (Auto) 62.1, Lymph % (Auto) 24.9, [place] % (Auto) 8.5, Eos % (Auto) 3.7, Baso % (Auto) 0.8, Neut # (Au to) 4.4, Lymph # (Auto) 1.8, [place] # (Auto) 0.6, Eos # (Auto) 0.3, Baso # (Auto) 0.1 07/05/19 21:31: Sodium 141, Potassium 3.7, Chloride 105, Carbon Dioxide 29, Anion Gap 10.7, BUN 17, Creatinine 0.97, Estimated Creat Clear 69, Estimated GFR 60, Est GFR ( Amer) 72, Glucose 92, Calcium 9.1, Total Bilirubin 0.5, Direct Bilirubin 0.1, Indirect Bilirubin 0.4, AST 12 L, ALT 16, Alkaline Phosphatase 96, Troponin I < 0.02, Total Protein 7.6, Albumin 3.8 07/05/19 21:31: ESR 38 H 07/05/19 21:31: C-Reactive Protein 0.9 07/06/19 02:40: Troponin I < 0.02 07/06/19 06:56: Troponin I < 0.02 07/06/19 06:56: WBC 4.6 L D, RBC 4.11 L, Hgb 11.7 L, Hct 38.1, MCV 92.6, MCH 28.4, MCHC 30.6 L, RDW 13.4, Plt Count 231, MPV 7.6, Neut % (Auto) 85.5 H, Lymph % (Auto) 11.6, [place] % (Auto) 2.3, Eos % (Auto) 0.2, Baso % (Auto) 0.3, Neut # (Auto) 4.0, Lymph # (Auto) 0.5 L, [place] # (Auto) 0.1, Eos # (Auto) 0.0, Baso # (Auto) 0.0, Total Counted 100, Neutrophils % (Manual) 87 H, Band Neutrophils % 1.0, Lymphocytes % (Manual) 5 L, Monocytes % (Manual) 6, Eosinophils % (Manual) 1, Platelet Estimate Normal, RBC Morphology Normal 10/16/19 06:56: Sodium 141, Potassium 4.3, Chloride 108 H, Carbon Dioxide 23 D, Anion Gap 14.3, BUN 16, Creatinine 0.87, Estimated Creat Clear 79, Estimated GFR 68, Est GFR ( Amer) 82, Glucose 157 H D, Calcium 9.0 I & O for Last 24 hours: Intake & Output 07/04/19 07/05/19 07/06/19 07/07/19 11:59 11:59 11:59 11:59 Intake Total 287 / 287 Balance 287 / 287 Weight 149 lb - Constitutional no acute distress - *Routine HEENT Exam Head: Present: normocephalic Eye: Present: EOMI, PERRL ENT: Present: mucous membranes dry - *Routine Neck Exam Present: supple. Absent: JVD - *Routine Respiratory Exam Present: CTA bilaterally - *Routine Cardiovascular Exam Present: RRR, murmur Comments: rad to carotids - *Routine Abdominal Exam Present: soft - *Routine Extremities Exam Present: full ROM. Absent: calf tenderness - *Routine Skin Exam Present: intact - *Routine Neurological Exam Present: alert, oriented X3, CN II-XII intact - Routine Psychiatric Exam Present: normal affect Hospital Course Hospital Course: pt did well with stable labs and nl troponin and pain responded to anti- inflamatories - she was seen by graciela is is a 53-year-old female who presented to the emergency department with complaints of chest pain. The patient had a repeat aortic valve surgery with TAVR on June 27, 2019. She states that she had a lie flat for several hours following this procedure. After the procedure was over she started to have left shoulder pain while she was lying flat. She states that the left shoulder pain has been persistent since that time. Sometimes it does get severe. She states that the night before last night the pain started radiating into her chest but only mildly and then last night the shoulder pain in her left shoulder was severe and was radiating to her chest. She states that her shoulder is more painful than her chest but she was concerned due to her recent surgery. She states that she does get a little short of breath at times. She states that last night the pain was severe. She states that Aleve and Advil do help to improve the pain at times as well. She denies any fever, chills, nausea, vomiting, diarrhea, PND or orthopnea. The patient has ruled out for an ME. pt The patient was admitted to the hospital with chest pain. The patient did have TAVR completed on June 27, 2019. She states since that time she has had severe left shoulder pain that is radiating into her chest. She states that it got really bad through the night last night and that is why she came into the emergency department. The patient has ruled out for an ME at this point. However, she does have an abnormal EKG. The patient reports that she did have a CTA of her chest while at prior to them doing the TAVR. We will get the results of the CTA of her chest from [facility]. 2. If the CTA of her chest is negative for coronary artery disease then the patient can be discharged home. If the CTA of her chest does show she has coronary artery disease, then the patient will need an ischemic evaluation prior to discharge home. 3. Her blood pressure is well controlled. 4. Her LDL goal is less than 100. 5. Her echocardiogram is currently pending. We will have Dr. eJfferson review these results. 6. She is status post TAVR as mentioned before no groin issues from her TAVR access site. 7. Further recommendations will be made pending the patient's response to treatment and the results of her echocardiogram and CTA from [facility]. echo was ok and discussed with dr jefferson and will d/c at this time with nsaif and see as op and with card Results Labs on day of discharge: Labs from last 24 hours 07/06/19 07/06/19 07/06/19 06:56 06:56 06:56 WBC 4.6 L D RBC 4.11 L Hgb 11.7 L Hct 38.1 MCV 92.6 MCH 28.4 MCHC 30.6 L RDW 13.4 Plt Count 231 MPV 7.6 Neut % (Auto) 85.5 H Lymph % (Auto) 11.6 [place] % (Auto) 2.3 Eos % (Auto) 0.2 Baso % (Auto) 0.3 Neut # (Auto) 4.0 Lymph # (Auto) 0.5 L [place] # (Auto) 0.1 Eos # (Auto) 0.0 Baso # (Auto) 0.0 Total Counted 100 Neutrophils % (Manual) 87 H Band Neutrophils % 1.0 Lymphocytes % (Manual) 5 L Monocytes % (Manual) 6 Eosinophils % (Manual) 1 Platelet Estimate Normal RBC Morphology Normal ESR Sodium 141 Potassium 4.3 Chloride 108 H Carbon Dioxide 23 D Anion Gap 14.3 BUN 16 Creatinine 0.87 Estimated Creat Clear 79 Estimated GFR 68 Est GFR ( Amer) 82 Glucose 157 H D Calcium 9.0 Total Bilirubin Direct Bilirubin Indirect Bilirubin AST ALT Alkaline Phosphatase Troponin I < 0.02 C-Reactive Protein Total Protein Albumin 07/06/19 07/05/19 07/05/19 02:40 21:31 21:31 WBC RBC Hgb Hct MCV MCH MCHC RDW Plt Count MPV Neut % (Auto) Lymph % (Auto) [place] % (Auto) Eos % (Auto) Baso % (Auto) Neut # (Auto) Lymph # (Auto) [place] # (Auto) Eos # (Auto) Baso # (Auto) Total Counted Neutrophils % (Manual) Band Neutrophils % Lymphocytes % (Manual) Monocytes % (Manual) Eosinophils % (Manual) Platelet Estimate RBC Morphology ESR 38 H Sodium Potassium Chloride Carbon Dioxide Anion Gap BUN Creatinine Estimated Creat Clear Estimated GFR Est GFR ( Amer) Glucose Calcium Total Bilirubin Direct Bilirubin Indirect Bilirubin AST ALT Alkaline Phosphatase Troponin I < 0.02 C-Reactive Protein 0.9 Total Protein Albumin 07/05/19 07/05/19 21:31 21:31 WBC 7.1 RBC 4.30 Hgb 11.9 L Hct 40.0 MCV 93.1 MCH 27.7 MCHC 29.8 L RDW 13.5 Plt Count 261 MPV 7.8 Neut % (Auto) 62.1 Lymph % (Auto) 24.9 [place] % (Auto) 8.5 Eos % (Auto) 3.7 Baso % (Auto) 0.8 Neut # (Auto) 4.4 Lymph # (Auto) 1.8 [place] # (Auto) 0.6 Eos # (Auto) 0.3 Baso # (Auto) 0.1 Total Counted Neutrophils % (Manual) Band Neutrophils % Lymphocytes % (Manual) Monocytes % (Manual) Eosinophils % (Manual) Platelet Estimate RBC Morphology ESR Sodium 141 Potassium 3.7 Chloride 105 Carbon Dioxide 29 Anion Gap 10.7 BUN 17 Creatinine 0.97 Estimated Creat Clear 69 Estimated GFR 60 Est GFR ([facility] Amer) 72 Glucose 92 Calcium 9.1 Total Bilirubin 0.5 Direct Bilirubin 0.1 Indirect Bilirubin 0.4 AST 12 L ALT 16 Alkaline Phosphatase 96 Troponin I < 0.02 C-Reactive Protein Total Protein 7.6 Albumin 3.8 DS: Diagnosis - Discharge Diagnosis (1) Chest pain Status: Acute (2) Status post transcatheter aortic valve replacement (TAVR) using bioprosthesis Status: Chronic (3) Abnormal EKG Status: Acute (4) Bilateral carotid bruits Status: Acute (5) Aortic valvular disease Status: Acute (6) Hypothyroidism (acquired) Status: Acute Discharge Plan - Patient Discharge Instructions ACTIVITY: Continue current activity DIET: continue same diet Patient Instructions: Angina, Echocardiogram, DI for Angina - Follow up Plan Follow up with: Nora Foster PA [Primary Care Provider] - Disposition: Home, Self-Jail Medications: Home Medications Medication Instructions Recorded Confirmed Type Clopidogrel Bisulfate [Plavix 75mg 75 mg PO DAILY 07/05/19 07/06/19 History Tab] Levothyroxine Sodium [Synthroid] 137 mcg PO DAILY 07/05/19 07/06/19 History Prescriptions/Medication Reconciliation: Continued Levothyroxine Sodium [Synthroid] 137 mcg PO DAILY Clopidogrel Bisulfate [Plavix 75mg Tab] 75 mg PO DAILY - Problem Reconciliation Problems Reviewed?: Yes
--- NOTE | 2019-07-06 18:23 | Electrocardiograph Report ---
APPROVED REPORT Exam: Resting ECG HR:73 bpm ECG Measurements Heart Rate 73 AXES [place] 178 P 72 QRSd 96 QRS 60 QT 420 T215 QTc 462 <Conclusion> Normal sinus rhythm ST & T wave abnormality, consider inferior ischemia ST & T wave abnormality, consider anterolateral ischemia Prolonged QT Abnormal ECG Electronically signed by : Linus Bates 07/06/2019 18:22:37
--- NOTE | 2019-07-06 18:26 | Electrocardiograph Report ---
APPROVED REPORT Exam: Resting ECG HR:70 bpm ECG Measurements Heart Rate 70 AXES NE 154 P 62 QRSd 88 QRS 55 QT 422 T95 QTc 455 <Conclusion> Normal sinus rhythm Left ventricular hypertrophy with repolarization abnormality Cannot rule out Septal infarct, Old Abnormal ECG Electronically signed by : Linus Bates, 07/06/2019 18:26:05
--- NOTE | 2019-07-06 19:07 | Cardiology Report ---
APPROVED REPORT EXAM: Comprehensive 2D, Doppler, and color-flow Echocardiogram Market Maker: Lily Singh, RT(R) Ht: 5 ft 4 in Wt: 145lbs BSA: 1.71 BP: 142/63 mmHg Indications: Recent TAVR with mechanical valve present. complaining of left sided chest and back pain. Fatgue. 2D Dimensions LVOT 2.20 cm (M/F) 1.5-2.5 M-Mode Dimensions RVDd 1.60 cm (0.9-2.6)LA Diam 2.90 cm (1.9-4.0) LVDd 5.60 cm (3.5-5.7)Ao Diam 2.20 cm (2.0-3.7) LVDs 4.40 cm (3.5-5.7)AV Cusp 1.60 cm (1.5-2.6) IVSd 0.90 cm (0.6-1.1)PWd 0.90 cm (0.6-1.1) EF (Teich) 43.10% FS 21.40% EDV (Teich) 154.00 mLESV (Teich) 87.70 mL LV Diastology E/A Ratio 0.8MED E' 5.85 (< 7 cm/sec) E'/MED E' Ratio14.10 (>14)LAT E' 9.65 (<10 cm/sec) E/LAT E' Ratio 8.50 (>14) Aortic Valve LVOT Max 237.00 (70-110 cm/s)LVOT VTI 45.70 cm AoV Peak Moi. 266.00 (50-130 cm/s)AO Peak GR. 28.00 mmHg AO Mean GR. 15.00 (<5 mmHg)AO VTI 52.40 (18-25 cm) MARINO (VTI) 3.31 (2.5-4.5 cm2) Mitral Valve MV E Max Moi. 82.40 (40-130 cm/s)MV A Velocity 107.00 (40-130 cm/s) E/A Ratio 0.80 Left Ventricle Left atrium is mildly enlarged, left ventricle is normal size, there is no concentric left ventricular hypertrophy, visually estimated ejection fraction 45 to 50%, with no regional wall motion abnormality, grade 1 diastolic dysfunction seen without tissue Doppler evidence of raise left atrial pressure. Right Ventricle Right atrium and right ventricular normal size and contractility. Aortic Valve There is stented valve seen in the aortic position, there is mild perivalvular insufficiency. Aortic outflow velocity is mildly increased, this does not represent any significant aortic outflow obstruction. Mitral Valve Mitral valve leaflets are minimally thickened, there is mild mitral regurgitation. Tricuspid Valve Tricuspid valve is grossly normal, there is mild tricuspid regurgitation, tricuspid regurgitation jet velocity is inadequate for calculation of the right ventricular systolic pressure. Pulmonic Valve Pulmonic valve is poorly visualized. Great Vessels Aortic root is normal size. Pericardium No significant pericardial effusion noted. Conclusion 1. Mildly enlarged left atrium, normal left ventricular size, visually estimated ejection fraction 45 to 50% with no regional wall motion abnormality, grade 1 diastolic dysfunction seen without tissue Doppler evidence of raise left atrial pressure. 2. Stented aortic valve in the aortic position without significant aortic outflow obstruction, there is mild perivalvular aortic insufficiency seen. 3. Mild mitral and tricuspid regurgitation 4. No significant pericardial effusion noted. Electronically signed by : Kaleb Pennington, 07/06/2019 19:06:37
--- NOTE | 2019-07-07 19:01 | Cardiology Report ---
APPROVED REPORT Machine Design Engineer: JOHAN Laterality: Bilateral Indications: carotid bruits, bilateral, TAVR 06/27/19 Doppler Spectral Velocity Analysis ECA (R) 83.60/ cm/sECA (L) 107.00/ cm/s dICA (R) 91.50/31.40 cm/sdICA (L) 70.40/28.30 cm/s Heike (R) 103.00/37.00 cm/smICA (L) 110.00/39.70 cm/s pICA (R) 65.60/28.70 cm/spICA (L) 77.10/31.40 cm/s dCCA (R) 88.60/22.00 cm/sdCCA (L) 94.30/20.10 cm/s pCCA (R) 94.30/18.90 cm/spCCA (L) 124.00/20.10 cm/s Vert (R) 38.00/ cm/sVert (L) 47.10/ cm/s ICA/CCA 1.16 ICA/CCA 1.17 Findings Duplex evaluation demonstrates stenosis of the right proximal internal carotid artery <20% with PSV <140 cm/sec, EDV <100 cm/sec, and IC/CC Ratio <4.0. Duplex evaluation demonstrates no evidence of hemodynamically significant stenosis of the left Internal Carotid Artery. Tortuousity seen in LICA. Antegrade flow seen bilateral vertebral arteries. Conclusion Duplex evaluation demonstrates stenosis of the right proximal internal carotid artery <20% with PSV <140 cm/sec, EDV <100 cm/sec, and IC/CC Ratio <4.0. Duplex evaluation demonstrates no evidence of hemodynamically significant stenosis of the left Internal Carotid Artery. Tortuousity seen in LICA. Antegrade flow seen bilateral vertebral arteries. Electronically signed by : Luther Tolentino MD 07/07/2019 19:01:16
== END 2019-07-06 13:45 | disposition home or self-care (01) ==
LOC: ER 21:27 → 2ND 21:27
PROVIDERS: ADMIT Emergency Medicine; ATTEND Emergency Medicine
CPT/HCPCS: 36415; 71020; 71046; 73030; 80048; 80076; 84484; 85007; 85025; 85651; 86140; 93005; 93306; 93880; 96365; 96375; 99284; G0378

== ENCOUNTER → 2019-07-12 07:58 | Outpatient (CLI) | payer OTHER, SELFPAY ==
--- NOTE | 2019-07-12 | CA_ITS ---
APPROVED REPORT Exam: Exercise Treadmill Technologist: Kellie Duncan Ht: 5 ft 4 in Wt: 145 lbs BSA: 1.71 m2 HR: 63 bpm BP: 141/77 mmHg Indications: Chest pain Medical History Medications: Synthroid,,,,, Plavix,,,,, Stress Test Details Test: Jamie HR Resting HR: 70 bpm Max Heart Rate (APMHR): 166 bpm Max HR Achieved: 150 bpm Target HR (85% APMHR): 141 bpm % of APMHR: 90 Recovery HR: 75 bpm BP Resting BP: 141.0/77.0 mmHg Max BP: 179.0/75.0 mmHg Recovery BP: 136.0/68.0 mmHg ECG Clinical Exercise duration: 08:00 min Highest Stage Achieved: Exercise capacity: 10.1 METs Stress ECG Conclusion Resting ECG: Normal sinus rhythm, right axis deviation, LVH, ST-T abnormalities consistent with strain pattern, cannot rule out old lateral OH. Patient exercised 8:00 on Jamie Protocol. Test stopped due to shortness of air, fatigue. Symptoms: No chest pain. Arrhythmias/Ectopy: Occasional isolated PVC. ST-T Changes: Exaggeration of baseline ST-T abnormalities. Conclusion: No chest pain. Non-diagnostic EKGs due to baseline abnormalities. GXT only (No imaging). Electronically signed by : Dominic Ruiz, 07/13/2019 11:16:00
== END ==
PROVIDERS: PCP Emergency Medicine; Visit Provider Emergency Medicine
DX: R07.9 Chest pain, unspecified (principal)
CPT/HCPCS: 93017

== ENCOUNTER → 2019-07-22 11:42 | Outpatient (CLI) | payer OTHER, SELFPAY ==
--- NOTE | 2019-07-22 | CA_ITS ---
APPROVED REPORT Exam: Exercise Treadmill Technologist: July Rajan, Ht: 5 ft 4 in Wt: 145 lbs BSA: 1.71 m2 HR: 72 bpm BP: 157/70 mmHg Rhythm: NSR,INF/LAT STT ABNORAMALITIES Medical History Medical History: Valvular heart disease Medications: Synthroid,,,,, Plavix,,,,, Allergies: No known drug allergies Stress Test Details Test: Jamie HR Resting HR: 82 bpm Max Heart Rate (APMHR): 166 bpm Max HR Achieved: 152 bpm Target HR (85% APMHR): 141 bpm % of APMHR: 91 Recovery HR: 102 bpm BP Resting BP: 157.0/70.0 mmHg Max BP: 170.0/82.0 mmHg Recovery BP: 164.0/58.0 mmHg ECG Resting ECG: NSR,INF/LATER, Clinical Reason for Termination: Dyspnea Exercise duration: 09:00 min Highest Stage Achieved: Exercise capacity: 10.1 METs Stress ECG Conclusion PATIENT WALKED FOR 9:00 WITH MAX HEART RATE 152 BPM WHICH IS 106% OF PM FOR AGE. METS = 10.1. NO SYMPTOMS. NO ARRHYTHMIAS/ECTOPY DURING STRESS. FREQUENT PVC'S B/W 2-3 MINUTES IN RECOVERY. NON-DIAGNOSTIC DUE TO BASELINE ST-T ABNORMALITIES WHICH WERE EXACERBATED DURING STRESS. ABNORMAL NON-DIAGNOSTIC. Test Summary REST . . . . . . . Standing REST 13:53 0.0 0.0 82 . 157/ 70 . . Stage 1 01:00 10.0 1.7 88 . . . . Stage 1 02:00 10.0 1.7 99 . . . . Stage 1 03:00 10.0 1.7 101 . 160/ 82 . . Stage 2 01:00 12.0 2.5 112 . . . . Stage 2 02:00 12.0 2.5 118 . . . . Stage 2 03:00 12.0 2.5 130 . 170/ 82 . . Stage 3 01:00 14.0 3.4 141 . . . . Stage 3 . . . . . . . Stage held Stage 3 . . . . . . . Cardiolite injected Stage 3 02:00 14.0 3.4 146 . . . . Stage 3 . . . . . . . Stage resumed Stage 3 03:00 14.0 3.4 152 . . . Stop exercise at 09:00 RECOVERY 01:00 0.0 0.0 125 . . . . RECOVERY 02:00 0.0 0.0 104 . . . . RECOVERY 03:00 0.0 0.0 95 . . . . RECOVERY 04:00 0.0 0.0 91 . . . . RECOVERY 05:00 0.0 0.0 88 . . . . RECOVERY 05:48 0.0 0.0 89 . . . . Electronically signed by : Kane Quispe, 07/22/2019 15:29:07
--- NOTE | 2019-07-22 11:45 | NM_ITS ---
APPROVED REPORT Exam: Nuclear Stress Test Indication: recent valve replacement, nonrhuematic aortic valve disorder, cardiomyopathy, abn ekg, lt neck and shoulder pain Patient Location: Outpatient Stress Tech: Cheyenne Satinder NM Tech:TRUONG Browning RT (R)(N)(M) Ht: 5 ft 4 in Wt: 145 lbs Bra Size: b HR: 86 bpm BP: 157/70 mmHg BSA: 1.71 m2 BMI: 24.8 History: recent valve replacement, nonrhuematic aortic valve disorder, cardiomyopathy, abn ekg, lt neck and shoulder pain Procedure: Patient exercised on Jamie protocol 9:00 minutes and sec, resting heart rate 70 bpm, resting blood pressure 132/84 mmHg, with exercise maximum heart rate achived was 140 bpm which is % of the maximum predicted heart rate and blood pressure was 157/70 mmHg. Patient denied any complaint of chest pain. Cardiac Stress and Resting SPECT Images: Cardiac Stress and Resting SPECT images were obtained using technetium 99m Myoview 31.1 mCi stress and 10.27 mCi at rest. Low EF of 39% with global hypokinesia Small reversible defect at the inferior apex consistent with an area of ishemia There is decrease activity in the anterior wall on stress which improves at rest suggesting ischemic changes Conclusion: Low EF of 39% with global hypokinesia Small reversible defect at the inferior apex consistent with an area of ishemia There is decrease activity in the anterior wall on stress which improves at rest suggesting ischemic changes Electronically signed by : Luther Tolentino MD 07/22/2019 18:24:47
--- NOTE | 2019-07-22 13:24 | HMH.ITSHM ---
Current Home Medications as stated by this patient Kristen Armenta or territory service representative. []plavix synthroid
== END ==
PROVIDERS: PCP Emergency Medicine; Visit Provider Nurse Practitioner Family
DX: R07.9 Chest pain, unspecified (principal); R06.09 Other forms of dyspnea; I35.9 Nonrheumatic aortic valve disorder, unspecified; I42.9 Cardiomyopathy, unspecified; R01.1 Cardiac murmur, unspecified; R09.89 Other specified symptoms and signs involving the circulatory and respiratory systems; R94.31 Abnormal electrocardiogram [ECG] [EKG]; G47.33 Obstructive sleep apnea (adult) (pediatric); Z95.3 Presence of xenogenic heart valve
CPT/HCPCS: 78452; 93017; A9502

== ENCOUNTER → 2019-08-02 09:25 | Outpatient (CLI) | payer OTHER, SELFPAY ==
--- NOTE | 2019-08-02 09:31 | XR_ITS ---
PROCEDURE: XR SHOULDER LT MIN 2V CLINICAL INDICATION: left shoulder pain COMPARISON: XR SHOULDER LT MIN 2V from 07/05/2019 FINDINGS: The there are mild osteoarthritic changes of the left shoulder. No fracture or dislocation. No lytic or blastic change. A small well-circumscribed lucency is present in the humeral head and may be due to a cortical defect unchanged. The acromioclavicular joint is unremarkable without subacromial stenosis. IMPRESSION: Mild osteoarthritis of the left shoulder Dictated by: Luther Tolentino MD 08/02/2019 16:15 Electronically signed by Luther Tolentino MD in [place] 08/02/2019 16:15
== END ==
PROVIDERS: PCP Emergency Medicine; Visit Provider Orthopaedic Surgery
DX: M25.512 Pain in left shoulder (principal)
CPT/HCPCS: 73030

== ENCOUNTER 2019-08-16 09:00 | Outpatient (RCR) | payer OTHER, SELFPAY ==
--- NOTE | 2019-08-05 14:34 | HMH.OTOPEV ---
OT Inpatient Evaluation Rehab OT Outpatient Eval Start: 08/05/19 14:20 Freq: Status: Active Protocol: Document 08/05/19 14:20 TFRY (Rec: 08/05/19 14:33 TFRY [id number]) Electronically Signed By Linda Simpson, OT 08/05/19 14:20 Outpatient Therapy Subjective History Subjective History This is a 54 year old right handed female referred to occupational therapy for left shoulder subacromial impingement; rotator cuff tendinopathy. She reports that she can't recall doing anything to it. Chief Complaint Pain Symptom Type Ache,Throb,Dull Symptoms Relieved By Rest/Positioning Symptoms Aggravated By Physical Activity Prior Functional Limitations None Current Functional Limitations Housework Symptom Description Activity Dependent Level of pain today (0-10) 0 Pain scale - at its best (0-10) 0 Pain scale - at its worst (0-10) 8 Shoulder/Elbow Eval Shoulder Objective Measurements Palpation Tenderness Shoulder Palpation Findings None/Normal Shoulder ROM Left Shoulder Abduction Active Range of WFL Motion (degrees) Shoulder Flexion Active Range of Motion WFL (degrees) Query Text: Shoulder External Rotation Active Range WFL of Motion (degrees) Shoulder Internal Rotation Active Range WFL of Motion (degrees) Shoulder Extension Active Range of WFL Motion (degrees) full ROM shoulder exam standard left Shoulder MMT Shoulder Abduction Strength Grade 3+ Fair+ Shoulder Extension Strength Grade 4- Good- Shoulder Flexion Strength Grade 4- Good- Shoulder Horizontal Abduction Strength 3+ Fair+ Grade Shoulder Horizontal Adduction Strength 3+ Fair+ Grade Shoulder External Rotation Strength 3+ Fair+ Grade Shoulder Internal Rotation Strength 3+ Fair+ Grade Shoulder Strength Patient Testing Sitting Position Shoulder Special Tests impingement sign present shoulder exam left standard Shoulder Anterior Drawer Test Negative Right Shoulder Empty Can (Supraspinatus) Test Positive Left Shoulder Barnes-Krunal Impingement Positive Left Test Elbow Objective Measurements OT Outpatient Assessment Impairments Problems/Impairments Impaired Strength,Impaired Work Activities,Subjective C/O Pain Prognosis Rehab Potential Good Clinical Im
== END 2019-08-16 09:05 | disposition home or self-care (01) ==
LOC: OT 09:00
PROVIDERS: Visit Provider Orthopaedic Surgery
DX: M75.52 Bursitis of left shoulder (principal); M67.912 Unspecified disorder of synovium and tendon, left shoulder; M75.22 Bicipital tendinitis, left shoulder; M25.512 Pain in left shoulder
CPT/HCPCS: 97014; 97110; 97165; G0283

== ENCOUNTER → 2019-09-01 09:36 | Outpatient (CLI) | payer OTHER, SELFPAY ==
[2019-09-01 11:18] LABS: Anion Gap 13.5 mEq/L (5-15); Blood Urea Nitrogen 18 mg/dL (7-18); Carbon Dioxide 27 mmol/L (21.0-32.0); Chloride 108 mmol/L (98-107); Estimated Glomerular Filt Rate 74 ml/min (>60); GFR (African American) 90 ML/MIN (>60); Glucose 84 mg/dL (74-106); Potassium 4.5 mmoL/L (3.5-5.1); Sodium 144 mmol/L (136-145)
[2019-09-01 13:15] LABS: Alanine Aminotransferase 23 U/L (12-78); Albumin Level 3.6 gm/dL (3.4-5.0); Alkaline Phosphatase 87 U/L (46-116); Aspartate Amino Transferase 14 U/L (15-37); Bilirubin,Direct 0.1 mg/dL (0.0-0.2); Bilirubin,Indirect 0.2 mg/dL (0.0-0.9); Bilirubin,Total 0.3 mg/dL (0.2-1.0); Chol/HDL Ratio 3.5 (1-3.5); Cholesterol 176 mg/dL (140-200); HDL Cholesterol 51 mg/dL (29-89); LDL Cholesterol 117 mg/dL (0-130); Total Protein,Serum 6.7 gm/dL (6.4-8.2); Triglycerides 41 mg/dL (30-200); VLDL Cholesterol 8 mg/dL (0-40)
== END ==
PROVIDERS: Visit Provider Internal Medicine Cardiovascular Disease
DX: I42.9 Cardiomyopathy, unspecified (principal); R06.09 Other forms of dyspnea; Z95.3 Presence of xenogenic heart valve; E78.5 Hyperlipidemia, unspecified; I65.29 Occlusion and stenosis of unspecified carotid artery; R06.00 Dyspnea, unspecified; R94.39 Abnormal result of other cardiovascular function study
CPT/HCPCS: 36415; 80048; 80061; 80076; 83880

== ENCOUNTER 2019-09-22 08:58 | Outpatient (RCR) | payer MEDICAID, SELFPAY | END 2019-12-21 10:20 | disposition home or self-care (01) | LOC: PT 08:58 | PROVIDERS: Visit Provider Internal Medicine Cardiovascular Disease | DX: I42.9 Cardiomyopathy, unspecified (principal); R06.00 Dyspnea, unspecified; Z95.3 Presence of xenogenic heart valve | CPT/HCPCS: 93798 ==

== ENCOUNTER → 2019-10-12 14:02 | Outpatient (CLI) | payer MEDICAID, SELFPAY ==
[2019-10-12 14:26] LABS: Basophils % 0.6 % (0.1-2.0); Eosinophils # 0.2 K/mm3 (0.0-0.4); Eosinophils % 3.8 % (0.1-12.0); Hematocrit 39.6 % (37.0-47.0); Hemoglobin 12.7 g/dL (12.2-16.2); Lymphocytes % 19.4 % (10-50); Mean Corpuscular HGB Conc 32.2 g/dL (31.8-35.4); Mean Corpuscular Hemoglobin 28.4 pg (27.0-31.2); Mean Corpuscular Volume 88.4 fl (81-99); Mean Platelet Volume 8.1 fl (7.4-10.4); Monocytes # 0.3 K/mm3 (0.1-1.0); Monocytes % 6.4 % (1.7-9.3); Neutrophils # 3.5 K/mm3 (1.8-7.8); Neutrophils % 69.8 % (37.0-80.0); Platelet Count 212 K/mm3 (142-424); Red Blood Count 4.48 M/mm3 (4.20-5.40); Red Cell Distribution Width 13.7 % (11.5-17.5); White Blood Count 4.9 K/mm3 (4.8-10.8)
[2019-10-12 15:13] LABS: Alanine Aminotransferase 35 U/L (12-78); Albumin Level 3.7 gm/dL (3.4-5.0); Albumin/Globulin Ratio 1.2 (1.1-1.8); Alkaline Phosphatase 92 U/L (46-116); Anion Gap 14.8 mEq/L (5-15); Aspartate Amino Transferase 24 U/L (15-37); Bilirubin,Total 0.4 mg/dL (0.2-1.0); Blood Urea Nitrogen 18 mg/dL (7-18); Calcium 9.1 mg/dL (8.5-10.1); Carbon Dioxide 27 mmol/L (21.0-32.0); Chloride 108 mmol/L (98-107); Chol/HDL Ratio 4.2 (1-3.5); Cholesterol 192 mg/dL (140-200); Creatinine,Serum 0.82 mg/dL (0.55-1.02); Estimated Glomerular Filt Rate 72 ml/min (>60); GFR (African American) 88 ML/MIN (>60); Glucose 87 mg/dL (74-106); HDL Cholesterol 46 mg/dL (29-89); LDL Cholesterol 121 mg/dL (0-130); Potassium 4.8 mmoL/L (3.5-5.1); Sodium 145 mmol/L (136-145); T4 (Thyroxine) 13.6 ug/dl (4.7-13.3); Thyroid Stimulating Hormone 0.01 uIU/ml (0.358-3.740); Total Protein,Serum 6.7 gm/dL (6.4-8.2); Triglycerides 123 mg/dL (30-200); VLDL Cholesterol 25 mg/dL (0-40)
[2019-10-13 12:34] LABS: Vitamin B12 360 pg/mL (232-1245)
[2019-10-13 12:35] LABS: Vitamin D 25 Hydroxy 34.7 ng/mL (30.0-100.0)
== END ==
PROVIDERS: Visit Provider Physician Assistant
DX: E03.9 Hypothyroidism, unspecified (principal)
CPT/HCPCS: 80053; 80061; 82607; 82652; 84436; 84443; 85025

== ENCOUNTER → 2019-11-29 13:56 | Outpatient (CLI) | payer MEDICAID, SELFPAY | PROVIDERS: PCP Physician Assistant; Visit Provider Internal Medicine Cardiovascular Disease | DX: I42.9 Cardiomyopathy, unspecified (principal); R01.1 Cardiac murmur, unspecified; Z95.2 Presence of prosthetic heart valve | CPT/HCPCS: 93306 ==

== ENCOUNTER → 2019-12-05 08:15 | Outpatient (CLI) | payer MEDICAID, SELFPAY ==
[2019-12-05 08:50] LABS: Chloride 107 mmol/L (98-107); Potassium 4.1 mmoL/L (3.5-5.1); Sodium 143 mmol/L (136-145)
[2019-12-05 08:52] LABS: Bilirubin,Unconjugated 0.8 mg/dL (0.0-1.1); Blood Urea Nitrogen 17 mg/dl (7-17); Estimated Glomerular Filt Rate 74 ml/min (>60); GFR (African American) 90 ML/MIN (>60)
[2019-12-05 08:53] LABS: Alanine Aminotransferase 20 U/L (12-78); Albumin Level 4.2 g/dl (3.5-5.0); Alkaline Phosphatase 73 U/L (38-126); Anion Gap 13.1 mEq/L (5-15); Aspartate Amino Transferase 26 U/L (14-36); Bilirubin,Indirect 0.6 mg/dL (0.0-0.9); Bilirubin,Total 0.6 mg/dl (0.2-1.3); Calcium 9.8 mg/dl (8.4-10.2); Carbon Dioxide 27 mmol/L (22.0-30.0); Chol/HDL Ratio 3.5 (1-3.5); Cholesterol 145 mg/dl (140-200); Glucose 92 mg/dl (74-100); HDL Cholesterol 41 mg/dl (40-60); Total Protein,Serum 7.1 g/dl (6.3-8.2); Triglycerides 74 mg/dl (30-150); VLDL Cholesterol 15 mg/dL (0-40)
== END ==
PROVIDERS: Visit Provider Internal Medicine Cardiovascular Disease
DX: E78.5 Hyperlipidemia, unspecified (principal); G47.33 Obstructive sleep apnea (adult) (pediatric); Z95.2 Presence of prosthetic heart valve; I42.9 Cardiomyopathy, unspecified
CPT/HCPCS: 36415; 80048; 80061; 80076

== ENCOUNTER → 2019-12-06 13:22 | Outpatient (CLI) | payer MEDICAID, SELFPAY | PROVIDERS: PCP Physician Assistant; Visit Provider Internal Medicine Cardiovascular Disease | DX: G47.33 Obstructive sleep apnea (adult) (pediatric) (principal); R53.83 Other fatigue ==

== ENCOUNTER → 2019-12-08 15:15 | Outpatient (CLI) | payer MEDICAID, SELFPAY | PROVIDERS: PCP Physician Assistant; Referring Provider Physician Assistant; Visit Provider Physician Assistant | DX: G47.33 Obstructive sleep apnea (adult) (pediatric) (principal); R53.83 Other fatigue | CPT/HCPCS: 95806 ==

== ENCOUNTER → 2020-01-10 09:39 | Outpatient (CLI) | payer MEDICAID, SELFPAY ==
[2020-01-10 11:11] LABS: Ferritin 99.3 ng/ml (11.1-264)
== END ==
PROVIDERS: Visit Provider Nurse Practitioner Family
DX: E83.10 Disorder of iron metabolism, unspecified (principal); G25.81 Restless legs syndrome
CPT/HCPCS: 36415; 82728

== ENCOUNTER → 2020-02-08 09:52 | Outpatient (CLI) | payer MEDICAID, SELFPAY ==
--- NOTE | 2020-02-08 09:53 | CA_ITS ---
APPROVED REPORT EXAM: Comprehensive 2D, Doppler, and color-flow Echocardiogram Rehabilitation Technician: Jeanne Christensen RVT Ht: 5 ft 4 in Wt: 145lbs BSA: 1.71 BP: 113/75 mmHg Indications: SOA,CM,S/P AVR & CABG 01/19/20,HX OF FAILED 2D Dimensions LVOT 2.61 cm (M/F) 1.5-2.5 M-Mode Dimensions RVDd 1.73 cm (0.9-2.6) LVDd 5.50 cm (3.5-5.7) LVDs 3.77 cm (3.5-5.7) IVSd 1.19 cm (0.6-1.1) PWd 0.74 cm (0.6-1.1) EF (Teich) 58.80% FS 31.50% EDV (Teich) 147.40 mL ESV (Teich) 60.80 mL LV Diastology E/A Ratio 0.92 Aortic Valve LVOT Max 179.00 (70-110 cm/s) LVOT VTI 33.83 cm Mitral Valve MV A Velocity 58.00 (40-130 cm/s) Left Ventricle Atrium is mildly enlarged, left ventricle is mildly dilated, left ventricle wall thickness is upper limit of the normal, visually estimated ejection fraction approximately 40 to 45%, there is abnormal septal motion. Diastolic parameters are inconclusive. Right Ventricle Right atrium and right ventricular normal size and contractility. Aortic Valve Historically patient has a bioprosthetic valve, the valve is not well-visualized. The aortic outflow velocity is mildly increased, does not represent any significant aortic outflow obstruction, there is no aortic insufficiency. Mitral Valve Mitral valve is grossly normal, there is mild mitral regurgitation. Tricuspid Valve Tricuspid valve is grossly normal, there is mild tricuspid regurgitation. Tricuspid regurgitation jet velocity is inadequate for calculation of the right ventricular systolic pressure. Pulmonic Valve Pulmonic valve is poorly visualized. Great Vessels Aortic root is normal size. Pericardium Trivial pericardial effusion and left-sided pleural effusion seen. Conclusion 1. Mildly enlarged left atrium, mildly dilated left ventricle, visually estimated ejection fraction of 40 to 45%, there is abnormal septal motion. Diastolic parameters are inconclusive. 2. Bioprosthetic valve in the aortic position, the valve is not well visualized, there is no aortic insufficiency. There is no significant aortic outflow obstruction. 3. Mild mitral and tricuspid regurgitation. 4. Trivial pericardial effusion and left-sided pleural effusion seen. Electronically signed by : Kaleb Pennington, 02/09/2020 15:04:33
[2020-02-08 11:20] LABS: Basophils # 0.1 K/mm3 (0-0.2); Basophils % 1.1 % (0.1-2.0); Eosinophils # 0.4 K/mm3 (0.0-0.4); Eosinophils % 6.6 % (0.1-12.0); Hematocrit 33.9 % (37.0-47.0); Hemoglobin 10.1 g/dL (12.2-16.2); Lymphocytes # 1.3 K/mm3 (0.7-4.5); Mean Corpuscular HGB Conc 29.7 g/dL (31.8-35.4); Mean Corpuscular Hemoglobin 27.7 pg (27.0-31.2); Mean Corpuscular Volume 93.3 fl (81-99); Mean Platelet Volume 7.6 fl (7.4-10.4); Monocytes # 0.4 K/mm3 (0.1-1.0); Monocytes % 5.9 % (1.7-9.3); Neutrophils # 3.8 K/mm3 (1.8-7.8); Neutrophils % 64.4 % (37.0-80.0); Platelet Count 453 K/mm3 (142-424); Red Blood Count 3.64 M/mm3 (4.20-5.40); Red Cell Distribution Width 15.2 % (11.5-17.5); White Blood Count 5.9 K/mm3 (4.8-10.8)
[2020-02-08 12:09] LABS: Anion Gap 10.5 mEq/L (5-15); Blood Urea Nitrogen 12 mg/dl (7-17); Calcium 10.2 mg/dl (8.4-10.2); Carbon Dioxide 28 mmol/L (22.0-30.0); Chloride 104 mmol/L (98-107); Estimated Glomerular Filt Rate 87 ml/min (>60); GFR (African American) 105 ML/MIN (>60); Glucose 105 mg/dl (74-100); Potassium 4.5 mmoL/L (3.5-5.1); Sodium 138 mmol/L (136-145)
== END ==
PROVIDERS: PCP Physician Assistant; Visit Provider Internal Medicine Cardiovascular Disease
DX: I42.9 Cardiomyopathy, unspecified (principal); I65.29 Occlusion and stenosis of unspecified carotid artery; E78.5 Hyperlipidemia, unspecified; G47.33 Obstructive sleep apnea (adult) (pediatric); Z95.2 Presence of prosthetic heart valve
CPT/HCPCS: 36415; 80048; 85025; 93306

== ENCOUNTER 2020-03-04 18:55 | Emergency (ER) | payer MEDICAID, SELFPAY ==
[2020-03-04 18:56] VITALS: BP 147/89; PULSE 84; RESP 18; TEMP 36.8; O2SAT 99; BMI 25.2
[2020-03-04 19:14] LABS: UTC Strep Screen (Rapid) Negative (Negative)
--- NOTE | 2020-03-04 19:15 | HMH.EDUTC ---
[facility] [place] Clinical Impression: Sinusitis Qualifiers: Sinusitis location: unspecified location Chronicity: unspecified Qualified Code(s): J32.9 - Chronic sinusitis, unspecified Disposition: Home, Self-Care Condition on Discharge: Good Instructions: Sore Throat, Sinusitis, Sinus Headache, DI for Sinusitis, Amoxicillin Additional Instructions: *Monitor Temp, Over the counter Motrin or Tylenol as directed/as needed Tylenol every 4 hours and Motrin every 6 hours (as long as your family doctor has told you that you can take it) for fever or pain. and straight to ER if unable to lower temp less than 101.0 after medication given *Warm salt water gargles may help to soothe the throat *Throat Lozenges *Warm fluids like tea with honey may help to soothe the throat *Sleep elevated *Humidifier/Vaporizer Your throat swab was sent for culture. Those results are typically sent to your primary care. Be sure to follow up in 2-3 days with your family doctor/primary care physician if no improvement so they can review those result and treat if necessary. If you don?t have a primary care doctor, I recommend you get one but in the mean time, you will have to return to a walk in clinic Follow up IMMEDIATELY for new or worsening symptoms or no Noticeable improvement over the next 48-72 hours. 911 for difficulty breathing or swallowing Prescriptions: Amoxicillin [Amoxicillin 500mg Cap] 500 mg PO TID #30 cap Transmission Status: Pending to [id number] Referrals: Nora Foster PA [Primary Care Provider] - As needed Time of Disposition: 19:19 Medical Decision Making - Leon Inquiry Pt receiving controlled substance: No Leon was queried for this patient: No Vital Signs: 03/04/20 18:56 Temperature 98.3 F Temperature Source Oral Pulse Rate [Radial] 84 Respiratory Rate 18 Blood Pressure [Right Arm] 147/89 H Blood Pressure Mean [Right Arm] 108 Blood Pressure Source [Right Arm] Automatic Cuff Blood Pressure Position [Right Arm] Sitting 02 Sat by Pulse Oximetry 99 Oxygen Delivery Method Room Air - Lab Data Lab results reviewed: Yes: I reviewed the patient's lab results. Lab Results 03/04/20 19:06: Strep Scn Rapid Clinic Negative Orders (Tests/Meds): ED MEDICATIONS Discontinued Medications Generic Name Dose Route Start Last Admin Trade Name Tayler PRN Reason Stop Dose Admin Amoxicillin 500 mg 03/04/20 19:18 Amoxicillin 500mg Capsule PO 03/04/20 19:19 ONCE ONE Protocol ORDERS Category Date Time Status Strep Screen Confirmation Stat Micro 03/04/20 19:06 Received [facility] HPI - General Stated complaint: sore throat, not feeling good Time Seen by Provider: 03/04/20 19:15 Mode of Arrival: Ambulatory Source of Information: Patient Limitations: No Limitations Description of Symptoms (Recalled from Triage Doc. by RN): sore throat, not feeling well, x 2 days has been exposed to strep HEENT Symptoms (Recalled from RN notes): Yes Resp Symptoms (Recalled from RN notes): No Skin Symptoms (Recalled from RN notes): No MS Symptoms (Recalled from RN notes): No Functional Status (Recalled from RN notes): wnl - History of Present Illness Provider Complaint: Patient states that she hasnt been feeling well for the last week and for the last couple of days her throat has been sore and irritated hurts when she swallows States that she was around someone that had strep and had open heart surgery around the end of December and didnt want to wait so she came in to get checked - Related Data Home Medications Medication Instructions Recorded Confirmed acetaminophen 325 mg tablet 325 mg PO Q6H PRN tab 02/02/20 02/23/20 hydrocodone 5 mg-acetaminophen 325 1 tab PO Q4-6H PRN tab 02/02/20 02/23/20 mg tablet levothyroxine 125 mcg tablet 125 mcg PO DAILY tab 02/02/20 02/23/20 Previous Rx's Medication Instructions Recorded aspirin 81 mg tablet,delayed 81 mg PO DAILY #30 tab
[2020-03-04 19:28] VITALS: BP 147/89; PULSE 84; RESP 18; TEMP 36.8; O2SAT 99
== END 2020-03-04 19:29 | disposition home or self-care (01) ==
PROVIDERS: Emergency Provider Nurse Practitioner; PCP Physician Assistant
DX: J32.9 Chronic sinusitis, unspecified (principal); E03.9 Hypothyroidism, unspecified; I42.8 Other cardiomyopathies; Z95.2 Presence of prosthetic heart valve; Z95.1 Presence of aortocoronary bypass graft; I35.9 Nonrheumatic aortic valve disorder, unspecified; R01.1 Cardiac murmur, unspecified; Z90.49 Acquired absence of other specified parts of digestive tract
CPT/HCPCS: 87880; 99201

== ENCOUNTER 2020-03-12 08:02 | Outpatient (RCR) | payer MEDICAID, SELFPAY | END 2020-04-23 11:19 | disposition home or self-care (01) | LOC: PT 08:02 | PROVIDERS: Referring Provider Thoracic Surgery (Cardiothoracic Vascular Surgery); Visit Provider Thoracic Surgery (Cardiothoracic Vascular Surgery) | DX: Z95.1 Presence of aortocoronary bypass graft (principal) | CPT/HCPCS: 93798 ==

== ENCOUNTER → 2020-03-19 14:01 | Outpatient (CLI) | payer MEDICAID, SELFPAY ==
[2020-03-19 14:28] LABS: Chloride 106 mmol/L (98-107)
[2020-03-19 14:29] LABS: Potassium 4.7 mmoL/L (3.5-5.1); Sodium 138 mmol/L (136-145)
[2020-03-19 14:31] LABS: Alanine Aminotransferase 31 U/L (12-78); Albumin Level 4.3 g/dl (3.5-5.0); Albumin/Globulin Ratio 1.5 (1.1-1.8); Alkaline Phosphatase 82 U/L (38-126); Anion Gap 12.7 mEq/L (5-15); Aspartate Amino Transferase 37 U/L (14-36); Bilirubin,Total 0.6 mg/dl (0.2-1.3); Blood Urea Nitrogen 15 mg/dl (7-17); Carbon Dioxide 24 mmol/L (22.0-30.0); Estimated Glomerular Filt Rate 87 ml/min (>60); GFR (African American) 105 ML/MIN (>60); Globulin 2.8 g/dL (1.3-3.2); Total Protein,Serum 7.1 g/dl (6.3-8.2)
[2020-03-19 14:32] LABS: Calcium 9.8 mg/dl (8.4-10.2); Chol/HDL Ratio 2.2 (1-3.5); Cholesterol 106 mg/dl (140-200); Glucose 90 mg/dl (74-100); HDL Cholesterol 48 mg/dl (40-60); Triglycerides 79 mg/dl (30-150); VLDL Cholesterol 16 mg/dL (0-40)
[2020-03-19 14:39] LABS: Basophils % 0.7 % (0.1-2.0); Eosinophils # 0.2 K/mm3 (0.0-0.4); Eosinophils % 3.9 % (0.1-12.0); Hematocrit 37.5 % (37.0-47.0); Hemoglobin 11.9 g/dL (12.2-16.2); Lymphocytes # 1.3 K/mm3 (0.7-4.5); Lymphocytes % 24.3 % (10-50); Mean Corpuscular HGB Conc 31.8 g/dL (31.8-35.4); Mean Corpuscular Hemoglobin 28.2 pg (27.0-31.2); Mean Corpuscular Volume 88.5 fl (81-99); Mean Platelet Volume 8.8 fl (7.4-10.4); Monocytes # 0.3 K/mm3 (0.1-1.0); Neutrophils # 3.5 K/mm3 (1.8-7.8); Platelet Count 262 K/mm3 (142-424); Red Blood Count 4.24 M/mm3 (4.20-5.40); Red Cell Distribution Width 14.1 % (11.5-17.5); White Blood Count 5.3 K/mm3 (4.8-10.8)
[2020-03-19 14:43] LABS: Direct LDL Cholesterol 50.05 mg/dL (100-129)
[2020-03-19 14:50] LABS: T4 (Thyroxine) 15.1 ug/dl (5.53-11.0)
[2020-03-19 15:05] LABS: Thyroid Stimulating Hormone < 0.02 uIU/mL (0.465-4.68)
[2020-03-21 04:47] LABS: Vitamin B12 411 pg/mL (232-1245)
[2020-03-24 06:12] LABS: 1,25 Dihydroxy Vitamin D 41 pg/mL (.); 1,25-Dihydroxy, Vitamin D-2 <10 pg/mL (.); 1,25-Dihydroxy, Vitamin D-3 40 pg/mL (.)
== END ==
PROVIDERS: Visit Provider Physician Assistant
DX: E03.9 Hypothyroidism, unspecified (principal); I10 Essential (primary) hypertension; D51.9 Vitamin B12 deficiency anemia, unspecified
CPT/HCPCS: 80053; 80061; 82607; 82652; 84436; 84443; 85025

== ENCOUNTER → 2020-04-20 14:58 | Outpatient (CLI) | payer MEDICAID, SELFPAY | PROVIDERS: PCP Physician Assistant; Visit Provider Internal Medicine Cardiovascular Disease | DX: R00.2 Palpitations (principal) | CPT/HCPCS: 93225; 93226 ==

== ENCOUNTER → 2020-04-27 11:56 | Outpatient (CLI) | payer MEDICAID, SELFPAY ==
[2020-04-27 12:54] LABS: Anion Gap 15.3 mEq/L (5-15); Blood Urea Nitrogen 15 mg/dl (7-17); Calcium 9.8 mg/dl (8.4-10.2); Carbon Dioxide 27 mmol/L (22.0-30.0); Chloride 102 mmol/L (98-107); Estimated Glomerular Filt Rate 87 ml/min (>60); GFR (African American) 105 ML/MIN (>60); Glucose 95 mg/dl (74-100); Magnesium 2.2 mg/dl (1.6-2.3); Potassium 4.3 mmoL/L (3.5-5.1); Sodium 140 mmol/L (136-145)
== END ==
PROVIDERS: Visit Provider Internal Medicine Cardiovascular Disease
DX: R00.2 Palpitations (principal)
CPT/HCPCS: 36415; 80048; 83735

== ENCOUNTER → 2020-06-23 11:58 | Outpatient (CLI) | payer MEDICAID, SELFPAY ==
[2020-06-23 12:32] LABS: Chloride 106 mmol/L (98-107); Potassium 4.3 mmoL/L (3.5-5.1); Sodium 139 mmol/L (136-145)
[2020-06-23 12:34] LABS: Blood Urea Nitrogen 19 mg/dl (7-17); Estimated Glomerular Filt Rate 74 ml/min (>60); GFR (African American) 90 ML/MIN (>60)
[2020-06-23 12:35] LABS: Anion Gap 13.3 mEq/L (5-15); Calcium 9.7 mg/dl (8.4-10.2); Carbon Dioxide 24 mmol/L (22.0-30.0); Glucose 112 mg/dl (74-100)
== END ==
PROVIDERS: Visit Provider Internal Medicine Cardiovascular Disease
DX: I42.9 Cardiomyopathy, unspecified (principal); R06.09 Other forms of dyspnea; R94.31 Abnormal electrocardiogram [ECG] [EKG]; I65.21 Occlusion and stenosis of right carotid artery; E03.9 Hypothyroidism, unspecified; G47.33 Obstructive sleep apnea (adult) (pediatric)
CPT/HCPCS: 36415; 80048

== ENCOUNTER 2020-07-14 11:21 | Emergency (ER) | payer MEDICAID, SELFPAY ==
[2020-07-14 11:30] VITALS: BP 125/72; PULSE 62; RESP 16; TEMP 36.6; O2SAT 95; BMI 25.2
--- NOTE | 2020-07-14 11:41 | HMH.EDEYEP ---
ED Disposition Clinical Impression: Corneal abrasion Qualifiers: Encounter type: initial encounter Laterality: right Qualified Code(s): S05.01XA - Injury of conjunctiva and corneal abrasion without foreign body, right eye, initial encounter Disposition: Home, Self-Care Condition on Discharge: Good Instructions: DI for Corneal Abrasion Prescriptions: Erythromycin Base [Erythromycin 1gm opth ointment] 1 applicatio OP QID 10 Days #3.5 oint...g. Transmission Status: Pending to [id number] Referrals: Nora Foster PA [Primary Care Provider] - - Critical Care Critical Care Time: No Attestation: On , the high probability of a clinically significant, sudden or life threatening deterioration of the following system(s) required my full and direct attention, intervention and personal management. The time I documented below is in addition to time spent performing reported procedures but includes the following listed in this critical care notation. Medical Decision Making - Medical Records Medical records reviewed: Yes: I reviewed the patient's medical records. - Leon Inquiry Pt receiving controlled substance: No Vital Signs: 07/14/20 11:30 Temperature 97.8 F Temperature Source Oral Pulse Rate [Right Radial] 62 Respiratory Rate 16 Blood Pressure [Right Arm] 125/72 Blood Pressure Mean [Right Arm] 89 Blood Pressure Source [Right Arm] Automatic Cuff Blood Pressure Position [Right Arm] Sitting 02 Sat by Pulse Oximetry 95 Oxygen Delivery Method Room Air Orders (Tests/Meds): ED MEDICATIONS Discontinued Medications Generic Name Dose Route Start Last Admin Trade Name Freq PRN Reason Stop Dose Admin Fluorescein Sodium 1 mg 07/14/20 11:38 Fluorescein Sodium 1mg Strip OP 07/14/20 11:39 ONCE ONE Tetracaine HCl 1 ml 07/14/20 11:38 Tetracaine 0.5% Opth Kelly 15ml OP 07/14/20 11:39 ONCE ONE Medical Decision Narrative: 54-year-old female presented to the emergency department with right-sided eye pain. On Deluna lamp examination, the patient does have evidence of a small corneal abrasion. I did instruct her to discontinue wearing her contacts. She will be given antibiotic ophthalmic ointment. Patient is to follow-up with her parts salesperson in 24 hours. Given strict return precautions. Verbalized understanding. Repeat visual acuity was normal. Eye Problem HPI - General Chief complaint: Eye Problems Stated complaint: scratch on eye Time Seen by Provider: 07/14/20 11:35 Mode of Arrival: Ambulatory Limitations: No Limitations Description of Symptoms (Recalled from ER Triage Doc. by RN): Pt reports irritation of R eye that began on Thursday of this week. Pt reports she wears contacts, replaced contacts Thursday, eye continued to be irriated. Pt denies any injury. Pt denies vision trouble. - History of Present Illness HPI Narrative: 54-year-old female presented to the emergency department with right-sided pain. Patient states that she noticed it on Thursday. She felt like she got something into her eye. This continued throughout the week where she had some discomfort and continue to feel like there was something stuck in her right eye. She denies any trauma to the area. She does wear contacts. She states that the discomfort continued this morning so she did not put in her contacts and has been wearing her glasses. She denies any change in vision. She is not having fevers or chills. No pain with eye movement. She states that she really just feels the pain when she opens and closes her eyelids. She denies any headache, focal weakness. No chest pain or shortness of breath. No abdominal pain or vomiting. - Related Data Home Medications Medication Instructions Recorded Confirmed Aspirin [Low Dose Aspirin EC] 81 mg PO DAILY 07/14/20 07/14/20 Levothyroxine Sodium [Synthroid 125 mcg PO DAILY 07/14/20 07/14/20 125mcg (0.125mg) tablet] Losartan Potassium [
[2020-07-14 11:57] VITALS: BP 125/72; PULSE 62; RESP 16; TEMP 36.6; O2SAT 95
== END 2020-07-14 11:58 | disposition home or self-care (01) ==
LOC: ER 11:55
PROVIDERS: Emergency Provider Emergency Medicine; PCP Physician Assistant
DX: S05.01XA Injury of conjunctiva and corneal abrasion without foreign body, right eye, initial encounter (principal); I42.8 Other cardiomyopathies; I25.10 Atherosclerotic heart disease of native coronary artery without angina pectoris; I10 Essential (primary) hypertension; E78.5 Hyperlipidemia, unspecified; E03.9 Hypothyroidism, unspecified; Z95.2 Presence of prosthetic heart valve
CPT/HCPCS: 99281

== ENCOUNTER → 2020-07-25 08:01 | Outpatient (CLI) | payer MEDICAID, SELFPAY ==
--- NOTE | 2020-07-25 08:01 | MM_ITS ---
PROCEDURE: MM DIG SCREENING MAMM BI W/CAD Digital Breast Tomosynthesis Included CLINICAL INDICATION: breast cancer screening There is a history of breast cancer patient's mother diagnosed before menopause. COMPARISON: MG DMDXUAVR DIG MAMM-DX UNI ADD VIEWS-RT from 05/15/2016 MG DMSB DIG MAMM-SCREEN VIKTOR W/CAD from 09/01/2017 MG DIG MAMM-SCREEN VIKTOR from 02/11/2019 TECHNIQUE: Standard CC and MLO images and 3D Tomosynthesis was obtained. R2 CAD reviewed. FINDINGS: There is a markedly and diffusely dense and heterogenic parenchymal pattern lessening the sensitivity of mammography. Hussain images are most helpful in this type of breast parenchyma. Findings are bilateral and symmetrical. There are couple of benign-appearing calcifications right breast. There is no suspicious lesion in either breast and no suspicious microcalcifications. IMPRESSION: Diffusely dense parenchymal pattern with no suspicious lesions seen BI-RAD Category: 2 Benign Finding(s) FOLLOW-UP: 1YR 1 Year Follow-up (A letter has been sent to the patient regarding results of the study.) Dictated by: Dr. Gurwinder Benton MD 07/29/2020 09:47 Dr. Gurwinder Benton MD in [place] 07/29/2020 09:47
== END ==
PROVIDERS: PCP Physician Assistant; Visit Provider Physician Assistant
DX: Z12.31 Encounter for screening mammogram for malignant neoplasm of breast (principal)
CPT/HCPCS: 77063; 77067

== ENCOUNTER 2020-09-30 17:51 | Emergency (ER) | payer MEDICAID, SELFPAY ==
[2020-09-30 17:52] VITALS: BP 119/77; PULSE 63; RESP 19; TEMP 36.9; O2SAT 99; BMI 25.2
--- NOTE | 2020-09-30 18:52 | HMH.EDUTC ---
[facility] Disposition Clinical Impression: UTI (urinary tract infection) Qualifiers: Urinary tract infection type: site unspecified Hematuria presence: with hematuria Qualified Code(s): N39.0 - Urinary tract infection, site not specified; R31.9 - Hematuria, unspecified Disposition: Home, Self-Care Condition on Discharge: Good Instructions: Urinary Tract Infection, DI for Urinary Tract Infection (UTI), Nitrofurantoin Additional Instructions: *Increase fluids. Water not Soda or Tea *Start antibiotic immediately and be sure to take as ordered for the FULL length of time although you should start to see improvement over the next 48 hours *Pyridium as needed Remember this medication will turn your urine [place]. This is normal but it will stain what ever it gets on *You should not use Pyridium for more than 48 hours. If so , follow up with your primary physician to review urine culture and ensure that antibiotic is adequate for infection *Be SURE to follow up anytime for new or worsening symptoms with your family doctor. AND in 48 hours for urine culture results with your family doctor, if you do not have a doctor then you may call back to the [facility] for urine culture results and further treatment. We do recommend that you choose and establish care with a Primary Care Physician. AND follow up with them in 10-14 days to repeat UA to ensure infection is resolved and blood no longer present *Be sure to let your PCP know that we sent urine cultures from the [facility] so they can follow up to ensure that you area the on the correct antibiotic Call your doctor office and make appointment for 48 hours (2 days from today) to follow up and get the results of your urine culture and further treatment Follow up as directed Prescriptions: Nitrofurantoin Monohyd/M-Cryst [Macrobid 100 mg Capsule] 100 mg PO BID 10 Days #20 cap Transmission Status: Pending to [id number] Phenazopyridine HCl [Pyridium 200mg Tablet] 200 pow PO TID #6 tab Transmission Status: Pending to [id number] Referrals: Nora Foster PA [Primary Care Provider] - As needed Time of Disposition: 18:59 Medical Decision Making - Leon Inquiry Pt receiving controlled substance: No Leon was queried for this patient: No Vital Signs: 09/30/20 17:52 Temperature 98.4 F Temperature Source Oral Pulse Rate [Left Radial] 63 Respiratory Rate 19 Blood Pressure [Right Arm] 119/77 Blood Pressure Mean [Right Arm] 91 Blood Pressure Source [Right Arm] Automatic Cuff Blood Pressure Position [Right Arm] Sitting 02 Sat by Pulse Oximetry 99 Oxygen Delivery Method Room Air - Lab Data Lab results reviewed: Yes: I reviewed the patient's lab results. [facility] HPI - General Stated complaint: frequency, ? UTI Time Seen by Provider: 09/30/20 18:52 Mode of Arrival: Ambulatory Source of Information: Patient Limitations: No Limitations Description of Symptoms (Recalled from Triage Doc. by RN): Pt states that she thinks she has a UTI. Burning and frequency for 4 days HEENT Symptoms (Recalled from RN notes): No Resp Symptoms (Recalled from RN notes): No Skin Symptoms (Recalled from RN notes): No MS Symptoms (Recalled from RN notes): No Functional Status (Recalled from RN notes): wnl - History of Present Illness Provider Complaint: Patient state that she has been having burning with urination and urinary frequency States that she was worried she may have a UTI States that she gets UTI frequently and wanted to come in and get tested - Related Data Home Medications Medication Instructions Recorded Confirmed Aspirin [Low Dose Aspirin EC] 81 mg PO DAILY 07/14/20 07/14/20 Losartan Potassium [Cozaar 50mg 50 mg PO DAILY 07/14/20 07/14/20 Tablets] Metoprolol Succinate [Metoprolol 75 mg PO DAILY 07/14/20 07/14/20 Succinate 50mg Tablet*] Vitamin B Complex 1 tab PO DAILY 07/14/20 07/14/20 Previous Rx's Medication Instructions Recorded Erythromycin Base [Erythromyci
[2020-09-30 19:08] VITALS: BP 119/77; PULSE 63; RESP 19; TEMP 36.9; O2SAT 99
[2020-09-30 19:58] LABS: Apearance,Urine Clear (Clear); Blood, Urine 1+ (Negative); Color,Urine Dark Yellow (Yellow); Glucose,Urine (UA) Negative (Negative); Ketones,Urine Negative (Negative); Protein,Urine Negative (Negative)
[2020-09-30 19:59] LABS: Bilirubin,Urine Negative (Negative); UTC Leukocyte Esterase,Urine 3+ (Negative); UTC Nitrate,Urine Positive (Negative); Urobilinogen,Urine 0.2 EU/dl (0.2)
== END 2020-09-30 19:09 | disposition home or self-care (01) ==
PROVIDERS: Emergency Provider Nurse Practitioner; PCP Physician Assistant
DX: N30.01 Acute cystitis with hematuria (principal); B96.20 Unspecified Escherichia coli [E. coli] as the cause of diseases classified elsewhere; I10 Essential (primary) hypertension; Z95.2 Presence of prosthetic heart valve; E03.9 Hypothyroidism, unspecified; Z79.899 Other long term (current) drug therapy
CPT/HCPCS: 81003; 87086; 87088; 87186; 99202; G0463

== ENCOUNTER 2020-12-02 20:26 | Emergency (ER) | payer MEDICAID, SELFPAY ==
--- NOTE | 2020-12-02 20:34 | XR_ITS ---
PROCEDURE: XR WRIST LT MIN 3V CLINICAL INDICATION: fall, wrist pain COMPARISON: No exams were available for comparison FINDINGS: No fracture or dislocation. No lytic or blastic change. There is normal mineralization. There are mild osteoarthritic changes of the distal radial joint and radiocarpal joint. Other findings:None. IMPRESSION: No acute findings. Dictated by: Luther Tolentino MD 12/02/2020 20:52 Luther Tolentino MD in [place] 12/02/2020 20:52
--- NOTE | 2020-12-02 20:36 | HMH.EDUTC ---
[facility] [place] Disposition Clinical Impression: Left wrist sprain Qualifiers: Encounter type: initial encounter Qualified Code(s): S63.502A - Unspecified sprain of left wrist, initial encounter Sprain of left hand Qualifiers: Encounter type: initial encounter Qualified Code(s): S63.92XA - Sprain of unspecified part of left wrist and hand, initial encounter Disposition: Home, Self-Care Condition on Discharge: Good Instructions: Wrist Sprain, DI for Wrist Sprain Additional Instructions: Rest the extremity, apply ice for 15 minutes as tolerated three or four times per day, Elevate the extremity as tolerated while you are resting. Take ibuprofen or tylenol for pain. Follow up with Dr. Steiner (orthopedics). Sometimes there can be fractures that don't show up well on the first set of x-rays. So, you should follow up if you continue to have symptoms. I put in a referral but you need to call her office and schedule an appointment. Follow up with your regular doctor. GO TO THE ER FOR ANY WORSENING SYMPTOMS Referrals: Nora oFster PA [Primary Care Provider] - Yas Steiner MD [Physician] - Time of Disposition: 21:11 Medical Decision Making - Medical Records Medical records reviewed: No: I reviewed the patient's medical records. - Leon Inquiry Pt receiving controlled substance: No Vital Signs: 12/02/20 20:58 12/02/20 21:16 Temperature 99.8 F H 99 F Temperature Source Oral Pulse Rate 66 Pulse Rate [Right] 60 Respiratory Rate 16 16 Blood Pressure 125/77 Blood Pressure [Right Arm] 131/73 Blood Pressure Mean [Right Arm] 92 Blood Pressure Source [Right Arm] Automatic Cuff Blood Pressure Position [Right Arm] Sitting 02 Sat by Pulse Oximetry 100 - Radiology Data #1 Image(s): Wrist Image Reviewed: Yes I reviewed the patient's radiology image, Yes I have reviewed radiologist's interpretation Preliminary Findings: No Fracture Seen PROCEDURE: XR WRIST LT MIN 3V CLINICAL INDICATION: fall, wrist pain COMPARISON: No exams were available for comparison FINDINGS: No fracture or dislocation. No lytic or blastic change. There is normal mineralization. There are mild osteoarthritic changes of the distal radial joint and radiocarpal joint. Other findings:None. IMPRESSION: No acute findings. Dictated by: Luther Tolentino MD 12/02/2020 20:52 Luther Tolentino MD in [place] 12/02/2020 20:52 [facility] [place] HPI - General Stated complaint: a/o 12/02 1929 fell injured left wrist Time Seen by Provider: 12/02/20 20:53 - History of Present Illness Provider Complaint: She is having left wrist and hand pain. She states that she stepped in hole in her yard and fell. She came down on her left wrist and hand. 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 She denies any other injury. - Related Data Home Medications Medication Instructions Recorded Confirmed Aspirin [Low Dose Aspirin EC] 81 mg PO DAILY 07/14/20 11/29/20 Vitamin B Complex 1 tab PO DAILY 07/14/20 11/29/20 levothyroxine 125 mcg tablet 125 mcg PO DAILY tab 11/29/20 11/29/20 losartan 50 mg tablet 50 mg PO DAILY tab 11/29/20 11/29/20 Previous Rx's Medication Instructions Recorded Erythromycin Base [Erythromycin 1 applicatio OP QID 10 Days #3.5 07/14/20 1gm opth ointment] oint...g. rosuvastatin 20 mg tablet 20 mg PO DAILY #90 tab 09/24/20 metoprolol succinate 50 mg 75 mg PO DAILY #150 tab 10/29/20 tablet,extended release 24 hr Allergies Allergy/AdvReac Type Severity Reaction Status Date / Time No Known Allergies Allergy Verified 12/02/20 20:39 [facility] History - Hepatitis A Screen Attestation statement:: This patient has been screened for Hepatitis A risk factors. I have reviewed the patient's past medical history: Yes Medical History: Reports:: Cardiomyopathy, Heart Murmur, Valvular Heart Disease Denies:: Cancer, Diabetes Mellitus Type 1, Diabetes Mellitus Type 2, Internal Pacemaker, MRSA Other Medical His
[2020-12-02 20:58] VITALS: BP 131/73; PULSE 60; RESP 16; TEMP 37.7; O2SAT 100; BMI 25.7
[2020-12-02 21:16] VITALS: BP 125/77; PULSE 66; RESP 16; TEMP 37.2
== END 2020-12-02 21:16 | disposition home or self-care (01) ==
PROVIDERS: Emergency Provider Nurse Practitioner Family; PCP Physician Assistant
DX: S63.502A Unspecified sprain of left wrist, initial encounter (principal); S63.92XA Sprain of unspecified part of left wrist and hand, initial encounter; W17.2XXA Fall into hole, initial encounter; Y92.017 Garden or yard in single-family (private) house as the place of occurrence of the external cause; R01.1 Cardiac murmur, unspecified; E03.9 Hypothyroidism, unspecified; I42.8 Other cardiomyopathies
CPT/HCPCS: 29125; 73110; 99202; G0463

== ENCOUNTER → 2021-04-18 09:00 | Outpatient (CLI) | payer MEDICAID, SELFPAY ==
--- NOTE | 2021-04-18 09:07 | XR_ITS ---
PROCEDURE: XR FOOT WT BEARING RT 3V CLINICAL INDICATION: foot pain COMPARISON: No exams were available for comparison FINDINGS: No fracture or dislocation. No lytic or blastic change. There is normal mineralization. The joint spaces are well-preserved. No significant degenerative/arthritic changes. No erosive changes evident. Other findings:Mild bony hypertrophy distal aspect of the 1st metatarsal. Small calcaneal spur. IMPRESSION: Mild bony hypertrophy distal aspect of 1st metatarsal. Small calcaneal spur. Dictated by: Luther Tolentino MD 04/18/2021 10:50 Luther Tolentino MD in [place] 04/18/2021 10:50
--- NOTE | 2021-04-18 09:08 | XR_ITS ---
PROCEDURE: XR FOOT WT BEARING LT 3V CLINICAL INDICATION: left great toe pain COMPARISON: No exams were available for comparison FINDINGS: No fracture or dislocation. No lytic or blastic change. There is normal mineralization. The joint spaces are well-preserved. No significant degenerative/arthritic changes. No erosive changes evident. Other findings:There is minimal bony hypertrophy of the distal aspect of the 1st metatarsal. Small calcaneal spurs noted. IMPRESSION: Minimal bony hypertrophy distal aspect of 1st metatarsal otherwise negative Dictated by: Luther Tolentino MD 04/18/2021 10:49 Luther Tolentino MD in [place] 04/18/2021 10:49
== END ==
PROVIDERS: PCP Physician Assistant; Visit Provider Podiatrist
DX: M72.2 Plantar fascial fibromatosis (principal); M79.674 Pain in right toe(s); M79.675 Pain in left toe(s)
CPT/HCPCS: 73630

== ENCOUNTER 2021-09-17 19:18 | Emergency (ER) | payer MEDICAID, SELFPAY ==
[2021-09-17 20:18] VITALS: BP 147/87; PULSE 66; RESP 18; TEMP 36.5; O2SAT 99; BMI 26.6
--- NOTE | 2021-09-17 20:19 | HMH.EDUTC ---
[facility] [place] Disposition Clinical Impression: UTI (urinary tract infection) Qualifiers: Urinary tract infection type: site unspecified Hematuria presence: with hematuria Qualified Code(s): N39.0 - Urinary tract infection, site not specified Right ankle sprain Qualifiers: Encounter type: initial encounter Involved ligament of ankle: unspecified ligament Qualified Code(s): S93.401A - Sprain of unspecified ligament of right ankle, initial encounter Disposition: Home, Self-Care Condition on Discharge: Good Instructions: DI for Urinary Tract Infection (UTI), Phenazopyridine Additional Instructions: Drink plenty of fluids. Take tylenol or ibuprofen for pain or fever. Take the medications as directed. Follow up with your regular doctor. GO TO THE ER FOR ANY WORSENING SYMPTOMS The pyridium will make your urine turn orange, this is an expected side effect. It will stain your clothes if it comes into contact with them. Prescriptions: Ondansetron [Zofran 4mg ODT] 4 mg PO Q8HP PRN #20 tab PRN Reason: Nausea Transmission Status: Received by [facility] Sulfamethoxazole/Trimethoprim [Bactrim DS tablet] 1 each PO BID 7 Days #14 tab Transmission Status: Received by [facility] Phenazopyridine HCl [Pyridium 200mg Tablet] 200 pow PO TID #6 tab Transmission Status: Received by [facility] Referrals: Nora Foster PA [Primary Care Provider] - Marti Lala DPM [Staff Physician] - Time of Disposition: 20:33 Medical Decision Making - Medical Records Medical records reviewed: Yes: I reviewed the patient's medical records. - Leon Inquiry Pt receiving controlled substance: No Vital Signs: 09/17/21 20:18 09/17/21 21:06 Temperature 97.7 F 97.7 F Temperature Source Temporal Artery Scan Pulse Rate 66 Pulse Rate [Left] 66 Respiratory Rate 18 18 Blood Pressure 147/87 H Blood Pressure [Right Arm] 147/87 H Blood Pressure Mean [Right Arm] 107 02 Sat by Pulse Oximetry 99 - Lab Data Lab Results 09/17/21 20:21: Urine Color Straw, Urine Appearance Turbid, Urine pH 5.5, Ur Specific [place] 1.020, Urine Protein Negative, Urine Glucose (UA) Negative, Urine Ketones Negative, Urine Blood 2+, Urine Nitrate Negative, Urine Bilirubin Negative, Urine Urobilinogen 0.2, Ur Leukocyte Esterase 2+ A Orders (Tests/Meds): ED MEDICATIONS Discontinued Medications Generic Name Dose Route Start Last Admin Trade Name Tayler PRN Reason Stop Dose Admin Phenazopyridine HCl 200 mg 09/17/21 20:30 09/17/21 20:45 Phenazopyridine 200mg Tablet PO 09/17/21 20:31 200 mg ONCE ONE Administration Trimethoprim/Sulfamethoxazole 1 each 09/17/21 20:44 09/17/21 20:45 Sulfa/Trimethoprim 1 Tablet PO 09/17/21 20:45 1 each ONCE ONE Administration ORDERS Category Date Time Status Urine Culture Stat Micro 09/17/21 20:11 Received - Radiology Data #1 Image(s): Ankle Image Reviewed: Yes I reviewed the patient's radiology image, Yes I have reviewed radiologist's interpretation Preliminary Findings: Normal/NAD, No Fracture Seen [facility] HPI - General Stated complaint: possible kidney infection uti Time Seen by Provider: 09/17/21 20:19 - History of Present Illness Provider Complaint: She has been having low back pain and burning with urination for the past 3 days. She gets uti's kind of frequently and she feels like she has one now. - Related Data Home Medications Medication Instructions Recorded Confirmed Aspirin [Low Dose Aspirin EC] 81 mg PO DAILY 07/14/20 05/30/21 Vitamin B Complex 1 tab PO DAILY 07/14/20 05/30/21 Previous Rx's Medication Instructions Recorded rosuvastatin 20 mg tablet 20 mg PO DAILY #90 tab 09/24/20 metoprolol succinate 50 mg 75 mg PO DAILY #150 tab 10/29/20 tablet,extended release 24 hr ciclopirox 0.77 % topical gel 1 applic TOPICAL ONCE 90 Days #30 g 04/18/21 levothyroxine 125 mcg tablet See Rx Instructions .ROUTE 08
--- NOTE | 2021-09-17 20:21 | XR_ITS ---
PROCEDURE INFORMATION: Exam: XR Right Ankle Exam date and time: 09/17/2021 8:21 PM Age: 56 years old Clinical indication: Injury or trauma; Fall; Blunt trauma; Patient HX: Patient fell on September 14, right ankle pain. TECHNIQUE: Imaging protocol: XR Right ankle. Views: 3 or more views. COMPARISON: CR XR FOOT WT BEARING RT 3V 04/18/2021 9:10 AM FINDINGS: Bones/joints: No evidence of acute fracture. Small os trigonum identified. There is spurring along posteroinferior aspects of the right calcaneus at relative insertions of Achilles tendon and plantar aponeurosis. Soft tissues: Normal. IMPRESSION: No acute findings.
[2021-09-17 20:22] LABS: Apearance,Urine Turbid (Clear); Bilirubin,Urine Negative (Negative); Blood, Urine 2+ (Negative); Color,Urine Straw (Yellow); Glucose,Urine (UA) Negative (Negative); Ketones,Urine Negative (Negative); PH,Urine 5.5 (5.0-8.5); Protein,Urine Negative (Negative)
[2021-09-17 20:23] LABS: UTC Leukocyte Esterase,Urine 2+ (Negative); UTC Nitrate,Urine Negative (Negative); Urobilinogen,Urine 0.2 EU/dl (0.2)
[2021-09-17 21:06] VITALS: BP 147/87; PULSE 66; RESP 18; TEMP 36.5
== END 2021-09-17 21:11 | disposition home or self-care (01) ==
PROVIDERS: Emergency Provider Nurse Practitioner Family; PCP Physician Assistant
DX: S93.401A Sprain of unspecified ligament of right ankle, initial encounter (principal); N30.00 Acute cystitis without hematuria; W10.9XXA Fall (on) (from) unspecified stairs and steps, initial encounter; Y92.019 Unspecified place in single-family (private) house as the place of occurrence of the external cause; E11.9 Type 2 diabetes mellitus without complications; Z95.2 Presence of prosthetic heart valve; E03.9 Hypothyroidism, unspecified; Z79.899 Other long term (current) drug therapy
CPT/HCPCS: 73610; 81003; 87086; 87088; 87186; 99202; G0463

== ENCOUNTER → 2022-04-15 08:21 | Outpatient (CLI) | payer MEDICAID, SELFPAY ==
--- NOTE | 2022-04-15 08:21 | MM_ITS ---
PROCEDURE INFORMATION: Exam: MG Bilateral Screening 3D Mammography Exam date and time: 04/15/2022 8:23 AM Age: 56 years old Clinical indication: Screening examination . Family history of breast carcinoma. TECHNIQUE: Imaging protocol: Bilateral Screening tomosynthesis and 2D mammography including computer-aided detection (CAD) when performed. COMPARISON: 1. MG MM DIG SCREENING MAMM BI W/CAD 07/25/2020 8:08 AM 2. MG DIG MAMM-SCREEN VIKTOR 02/11/2019 3:15 PM 3. MG DMSB DIG MAMM-SCREEN VIKTOR W/CAD 09/01/2017 8:50 AM FINDINGS: MAMMOGRAPHY: Breast composition: The breasts are extremely dense, which lowers the sensitivity of mammography. Mass: No suspicious masses. Architectural distortion: No suspicious distortion. Calcifications: No suspicious calcifications. Asymmetric density: None. Skin thickening: None. Axillary adenopathy: None. IMPRESSION: 1. No mammographic evidence of malignancy. Annual screening is recommended unless otherwise clinically indicated. 2. Given the reported risk factors for this patient, a breast cancer risk assessment may prove useful for further evaluation. ASSESSMENT: BI-RADS Category 1: Negative
--- NOTE | 2022-04-15 08:21 | XR_ITS ---
FINAL REPORT TECHNIQUE: Bone densitometry calculations of the lumbar spine and left hip were obtained. CLINICAL HISTORY: . osteoporosis screening FINDINGS: DEXA BONE DENSITY AXIAL SKELETON Using L1-4, the bone mineral density of the spine is 0.999 g/cm2, corresponding to T-score of -0.4. Classified as normal. Using the left hip, the bone mineral density of the femoral neck is 0.669 g/cm2, corresponding to a T-score of -1.6. Classified as osteopenia. NOTE: T-score: Standard deviation compared with peak bone mass of young adult mean. *Following the recommendations of the International Society of Bone densitometry, classification of hip BMD is based on the lower of two T-scores; total hip or femoral neck. IMPRESSION: Diminished bone mineral density of the left hip consistent with osteopenia. FRAX 10 year fracture risk is 7.7 % for major osteoporotic fracture and 0.7% for hip fracture. Reviewed, Interpreted and Dictated by Sophia Gross MD Transcribed by Aleisha Thompson Authenticated and [facility]
== END ==
PROVIDERS: PCP Physician Assistant; Visit Provider Physician Assistant
DX: Z12.31 Encounter for screening mammogram for malignant neoplasm of breast (principal); Z78.0 Asymptomatic menopausal state
CPT/HCPCS: 77063; 77067; 77080

== ENCOUNTER → 2022-05-15 06:28 | Outpatient (CLI) | payer MEDICAID, SELFPAY ==
[2022-05-15 17:26] LABS: Microscopic, Urine URINE MICROSCOPIC (MICROSCOPIC)
[2022-05-15 18:03] LABS: Appearance,Urine CLOUDY (Clear); Bilirubin,Urine Negative (Negative); Blood, Urine 1+ (Negative); Color,Urine YELLOW (Yellow); Glucose,Urine (UA) Negative (Negative); Ketones,Urine Negative (Negative); Leukocyte Esterase,Urine 2+ (Negative); Nitrate,Urine POSITIVE (Negative); PH,Urine 5.5 (5.0-8.5); Protein,Urine TRACE (Negative); Specific Gravity, Urine 1.025 (1.005-1.030); Urobilinogen,Urine 0.2 EU/dl (0.2)
[2022-05-15 18:43] LABS: Bacteria,Urine 4+ /lpf; WBC,Urine 50-100 #/hpf (0-3)
== END ==
PROVIDERS: PCP Physician Assistant; Visit Provider Physician Assistant
DX: N39.0 Urinary tract infection, site not specified (principal); R39.9 Unspecified symptoms and signs involving the genitourinary system; B96.29 Other Escherichia coli [E. coli] as the cause of diseases classified elsewhere
CPT/HCPCS: 81001; 87086; 87088; 87186

== ENCOUNTER → 2022-09-22 09:07 | Outpatient (CLI) | payer MEDICAID, SELFPAY ==
[2022-09-22 13:41] LABS: Basophils # 0.1 K/mm3 (0-0.2); Basophils % 1.3 % (0.1-2.0); Eosinophils # 0.2 K/mm3 (0.0-0.4); Eosinophils % 2.5 % (0.1-12.0); Hematocrit 42.8 % (37.0-47.0); Lymphocytes # 1.6 K/mm3 (0.7-4.5); Lymphocytes % 26.7 % (10-50); Mean Corpuscular HGB Conc 32.8 g/dL (31.8-35.4); Mean Corpuscular Hemoglobin 28.5 pg (27.0-31.2); Mean Corpuscular Volume 86.8 fl (81-99); Mean Platelet Volume 9.2 fl (7.4-10.4); Monocytes # 0.4 K/mm3 (0.1-1.0); Monocytes % 6.6 % (1.7-9.3); Neutrophils # 3.8 K/mm3 (1.8-7.8); Platelet Count 308 K/mm3 (142-424); Red Blood Count 4.92 M/mm3 (4.20-5.40); Red Cell Distribution Width 13.6 % (11.5-17.5)
[2022-09-22 14:08] LABS: Alanine Aminotransferase 31 U/L (12-78); Albumin Level 4.3 g/dl (3.5-5.0); Albumin/Globulin Ratio 1.5 (1.1-1.8); Alkaline Phosphatase 102 U/L (38-126); Anion Gap 12.4 mEq/L (5-15); Aspartate Amino Transferase 30 U/L (14-36); Bilirubin,Total 0.8 mg/dl (0.2-1.3); Blood Urea Nitrogen 16 mg/dl (7-17); Calcium 9.4 mg/dl (8.4-10.2); Carbon Dioxide 25 mmol/L (22.0-30.0); Chloride 109 mmol/L (98-107); Chol/HDL Ratio 5.2 (1-3.5); Cholesterol 203 mg/dl (140-200); Estimated Glomerular Filt Rate 64 ml/min (>60); GFR (African American) 78 ML/MIN (>60); Globulin 2.8 g/dL (1.3-3.2); Glucose 102 mg/dl (74-100); HDL Cholesterol 39 mg/dl (40-60); Potassium 4.4 mmoL/L (3.5-5.1); Sodium 142 mmol/L (136-145); Total Protein,Serum 7.1 g/dl (6.3-8.2); Triglycerides 97 mg/dl (30-150); VLDL Cholesterol 19 mg/dL (0-40)
[2022-09-22 14:24] LABS: Direct LDL Cholesterol 132.22 mg/dL (100-129)
[2022-09-22 14:29] LABS: 25-OH Vitamin D, Total 33.5 ng/mL (30-100)
[2022-09-22 14:43] LABS: Thyroid Stimulating Hormone < 0.02 uIU/mL (0.465-4.68)
[2022-09-22 15:08] LABS: Vitamin B12 > 1000 pg/mL (239-931)
== END ==
PROVIDERS: PCP Physician Assistant; Visit Provider Physician Assistant
DX: R53.83 Other fatigue (principal); R39.15 Urgency of urination; I10 Essential (primary) hypertension; E78.5 Hyperlipidemia, unspecified; E03.9 Hypothyroidism, unspecified; R39.9 Unspecified symptoms and signs involving the genitourinary system
CPT/HCPCS: 80053; 80061; 82306; 82607; 84443; 85025; 87086

== ENCOUNTER → 2022-09-26 14:12 | Outpatient (CLI) | payer MEDICAID, SELFPAY ==
[2022-09-26 15:44] LABS: Thyroid Stimulating Hormone < 0.02 uIU/mL (0.465-4.68)
== END ==
PROVIDERS: PCP Physician Assistant; Visit Provider Physician Assistant
DX: E03.9 Hypothyroidism, unspecified (principal); R39.9 Unspecified symptoms and signs involving the genitourinary system
CPT/HCPCS: 36415; 84443; 87086

== ENCOUNTER → 2022-09-30 15:00 | Outpatient (CLI) | payer MEDICAID, SELFPAY | PROVIDERS: PCP Physician Assistant; Visit Provider Physician Assistant | DX: N39.0 Urinary tract infection, site not specified (principal); R31.9 Hematuria, unspecified | CPT/HCPCS: 87086 ==

== ENCOUNTER 2023-01-27 08:27 | Day surgery (SDC) | payer MEDICAID, SELFPAY ==
[2023-01-23 13:46] VITALS: BMI 23.5
[2023-01-27] VITALS (7 sets, daily range): BP systolic 79–147; BP diastolic 46–75; PULSE 50–74; RESP 16–17; TEMP 36.3–36.8; O2SAT 95–99
--- NOTE | 2023-01-27 08:48 | HMH.SCOPE ---
Procedure: Date: 01/27/23 Patient Date of :: 1965 Procedure Performed:: Colonoscopy with polypectomy Indications:: Screening Performing Provider:: Louie Michel MD Referring Provider:: . Sedation:: Monitored anesthesia care Procedure:: After informed consent was obtained the patient was taken to the endoscopy suite. Sedation ensued after the patient was transferred to the left lateral decubitus position. Pulse, blood pressure, and oxygen saturation were monitored throughout the procedure. Digital rectal exam revealed no significant abnormality. The colonoscope was placed in position. The entire colon was evaluated. The colonoscope was carefully removed and the patient was transferred to recovery in stable condition. Please see findings and specimens below for detail. Findings:: Bowel prep fair Complex lobulated sessile 11 mm polyp in right colon Specimens:: 11 mm complex lobulated sessile polyp of the right colon (cold snare and tattoo) Recommendations:: Timing of repeat colonoscopy is pending pathology but will likely be around 6-12 months secondary to size/nature of polyp. Complications:: No immediate Estimated blood obtained (mL): 1
--- NOTE | 2023-01-27 08:54 | EXP.ANES.CKL ---
[facility] Disclaimer: The information contained in this section may have been updated after the patient was seen, as this information can be updated by other users. Medical History B12 deficiency Bladder prolapse CAD (coronary artery disease) Cardiac murmur Cardiomyopathy Carotid artery stenosis Carotid bruit Dyspnea Holosystolic murmur HTN (hypertension) Hyperlipidemia Hypothyroidism IKE (obstructive sleep apnea) Restless legs syndrome Surgical History History of cholecystectomy History of coronary artery bypass graft Hx of artificial heart valve replacement Family History Other Family history of cancer Family history of myocardial infarction Family history of stroke Social History Smoking Status: Never smoker alcohol intake: never substance use type: denies use current occupational status: employed Travel in the last 8 weeks: None household members: none housing: house lives independently: Yes marital status: education level: college service: No caffeine: Yes special saqib needs: No agree to transfusion: No do you feel safe at home: Yes victim of physical abuse: No victim of emotional abuse: No victim of sexual abuse: No would you like helpful sources: No [facility] Anesthesia Checklist Patient Identification Patient Identification: Arm Band Structural Data Admitted From: Home Planned Operative Procedure/s: Colonoscopy Consent for Planned Operative Procedure(s) Verified: Yes NPO Status Verified Time NPO: 00:00 Airway Assessment C-Spine Mobility Assessed: Yes TMJ Mobility Assessed: Yes Dentition: Good Dentition Neurological Assessment Level of Consciousness: Awake Hx Seizures: No Numbness or tingling in extremities: No Anesthesia Plan Anesthesia Plan: Verified ASA Class: III Anesthesia Type: MAC
--- NOTE | 2023-01-27 11:06 | SUR.PHASEII ---
report given to Satish @ 6502
== END 2023-01-27 10:40 | disposition home or self-care (01) ==
PROVIDERS: PCP Physician Assistant; Visit Provider Surgery
PROC: 0DJD8ZZ Inspection of Lower Intestinal Tract, Via Natural or Artificial Opening Endoscopic (ICD-10-PCS; CPT 45385; principal; 2023-01-27 09:30)
DX: Z12.11 Encounter for screening for malignant neoplasm of colon (principal); D12.2 Benign neoplasm of ascending colon; Z79.899 Other long term (current) drug therapy
CPT/HCPCS: 45385; J2704

== ENCOUNTER → 2023-07-21 14:22 | Outpatient (CLI) | payer MEDICAID, SELFPAY ==
[2023-07-21 12:30] LABS: Basophils % 0.5 % (0.1-2.0); Eosinophils # 0.1 K/mm3 (0.0-0.4); Eosinophils % 2.2 % (0.1-12.0); Hematocrit 41.2 % (37.0-47.0); Hemoglobin 13.9 g/dL (12.2-16.2); Lymphocytes # 1.8 K/mm3 (0.7-4.5); Lymphocytes % 28.5 % (10-50); Mean Corpuscular HGB Conc 33.8 g/dL (31.8-35.4); Mean Corpuscular Hemoglobin 31.5 pg (27.0-31.2); Mean Corpuscular Volume 93.2 fl (81-99); Mean Platelet Volume 8.7 fl (7.4-10.4); Monocytes # 0.4 K/mm3 (0.1-1.0); Monocytes % 6.7 % (1.7-9.3); Neutrophils # 3.9 K/mm3 (1.8-7.8); Neutrophils % 62.1 % (37.0-80.0); Platelet Count 229 K/mm3 (142-424); Red Blood Count 4.42 M/mm3 (4.20-5.40); Red Cell Distribution Width 13.1 % (11.5-17.5); White Blood Count 6.3 K/mm3 (4.8-10.8)
[2023-07-21 12:48] LABS: Alanine Aminotransferase 20 U/L (12-78); Albumin Level 4.6 g/dl (3.5-5.0); Albumin/Globulin Ratio 1.5 (1.1-1.8); Alkaline Phosphatase 68 U/L (38-126); Aspartate Amino Transferase 29 U/L (14-36); Bilirubin,Total 0.8 mg/dl (0.2-1.3); Blood Urea Nitrogen 20 mg/dl (7-17); Calcium 9.7 mg/dl (8.4-10.2); Carbon Dioxide 25 mmol/L (22.0-30.0); Chol/HDL Ratio 4.3 (1-3.5); Cholesterol 260 mg/dl (140-200); Estimated Glomerular Filt Rate 51 ml/min (>60); GFR (African American) 62 ML/MIN (>60); Glucose 93 mg/dl (74-100); HDL Cholesterol 60 mg/dl (40-60); Total Protein,Serum 7.6 g/dl (6.3-8.2); Triglycerides 69 mg/dl (30-150); VLDL Cholesterol 14 mg/dL (0-40)
[2023-07-21 12:58] LABS: Direct LDL Cholesterol 153.22 mg/dL (100-129)
[2023-07-21 13:18] LABS: 25-OH Vitamin D, Total 51.8 ng/mL (30-100)
[2023-07-21 14:28] LABS: Anion Gap 13.6 mEq/L (5-15); Chloride 105 mmol/L (98-107); Potassium 4.6 mmoL/L (3.5-5.1); Sodium 139 mmol/L (136-145)
[2023-07-21 15:02] LABS: Thyroid Stimulating Hormone 4.35 uIU/mL (0.465-4.68)
[2023-07-21 15:22] LABS: Vitamin B12 > 1000 pg/mL (239-931)
== END ==
PROVIDERS: PCP Physician Assistant; Visit Provider Physician Assistant
DX: E03.9 Hypothyroidism, unspecified (principal); E53.8 Deficiency of other specified B group vitamins; N39.0 Urinary tract infection, site not specified; M85.89 Other specified disorders of bone density and structure, multiple sites
CPT/HCPCS: 80053; 80061; 82306; 82607; 84443; 85025; 87086

== ENCOUNTER 2023-09-04 09:26 | Outpatient (RCR) | payer MEDICAID, SELFPAY | END 2023-09-04 10:30 | disposition home or self-care (01) | LOC: PT 09:26 | PROVIDERS: Visit Provider Physician Assistant | DX: M79.644 Pain in right finger(s) (principal) | CPT/HCPCS: 97760 ==

== ENCOUNTER 2023-12-22 07:55 | Outpatient (CLI) | payer MEDICAID, SELFPAY ==
--- NOTE | 2023-12-22 07:57 | CA_ITS ---
APPROVED REPORT EXAM: Comprehensive 2D, Doppler, and color-flow Echocardiogram [employer] Production: Jeanne Christensen RVT Ht: 5 ft 4 in Wt: 137lbs BSA: 1.67 BP: 110/69 mmHg Indications: AVR-BIOPROSTHETIC,HTN,CM,HLD,SOA 2D Dimensions LA Volume 37.30 mL LA Volume Index 22.34 mL/m2 (M/F) 16-34 M-Mode Dimensions RVDd 2.34 cm (0.9-2.6) LA Diam 3.55 cm (1.9-4.0) LVDd 5.04 cm (3.5-5.7) LVDs 3.75 cm (3.5-5.7) IVSd 1.18 cm (0.6-1.1) PWd 0.82 cm (0.6-1.1) EF (Teich) 50.20% FS 25.60% EDV (Teich) 120.50 mL TAPSE 0.73 (<1.7) ESV (Teich) 60.00 mL LV Diastology E Decel Time 210 (160-240 msec) E/A Ratio 1.2 Aortic Valve MARINO Index 0.78 cm2/m2 AoV Peak Moi. 221.0 (50-130 cm/s) AO Peak GR. 19.60 mmHg AO Mean GR. 10.30 (<5 mmHg) AO VTI 47.7 (18-25 cm) MARINO (VTI) 1.34 (2.5-4.5 cm2) Mitral Valve MV E Max Moi. 90.0 (40-130 cm/s) MV A Velocity 78.0 (40-130 cm/s) E/A Ratio 1.15 MV PHT 62.0 ms Pulmonary Valve PV Peak Velocity 73.0 (50-150 cm/s) Tricuspid Valve TR P. Velocity 200.00 cm/s RAP Estimate 10.00 mmHg RVSP 25.90 mmHg Left Ventricle The left ventricle is normal size. The left ventricular systolic function is low normal. There is normal left ventricular wall thickness. There is mild hypokinesis of the basal septal and inferoseptal LV castellanos. The left ventricular diastolic function is normal. LVEF is 50%. Right Ventricle The right ventricle is normal size. The right ventricular systolic function is normal. Atria The left atrium size is normal. The right atrium size is normal. There is no Doppler evidence of interatrial shunt. Aortic Valve s/p bioprosthetic AVR. Peak velocity 2.1 m/s. Mean AV gradient 20 mmHg. Max AV gradient 50 mmHg. No aortic regurgitation is present. Mitral Valve The mitral valve is normal in structure. No evidence of mitral valve stenosis. Trace mitral regurgitation. Tricuspid Valve The tricuspid valve leaflets are thin and pliable. Trace tricuspid regurgitation. There is insufficient TR jet to estimate RVSP. Pulmonic Valve The pulmonary valve is normal in structure. Trace pulmonic regurgitation. Great Vessels The aortic root is normal in size. The ascending aorta is not well-visualized. IVC is normal in size and collapses >50% with inspiration. Pericardium There is no pericardial effusion. Other Information Study Quality: Fair Conclusion Low normal biventricular systolic function (LVEF 50%). Mild hypokinesis of the basal septal and inferoseptal LV castellanos. s/p bioprosthetic AVR. No AI. Peak velocity 2.1 m/s. Mean AV gradient 20 mmHg. Max AV gradient 50 mmHg. Compared to prior study from 2019, the AVR gradients are overall unchanged. Electronically signed by : Tomeka Kasper MD 12/23/2023 10:18:30
== END 2023-12-22 23:59 ==
LOC: RT 07:55
PROVIDERS: PCP Physician Assistant; Visit Provider Physician Assistant
DX: I25.10 Atherosclerotic heart disease of native coronary artery without angina pectoris (principal); I11.9 Hypertensive heart disease without heart failure; I35.9 Nonrheumatic aortic valve disorder, unspecified; R09.89 Other specified symptoms and signs involving the circulatory and respiratory systems; E78.5 Hyperlipidemia, unspecified; Z95.1 Presence of aortocoronary bypass graft; Z95.2 Presence of prosthetic heart valve; Z95.3 Presence of xenogenic heart valve
CPT/HCPCS: 93306

== ENCOUNTER 2024-10-07 12:00 | Outpatient (CLI) | payer MEDICAID, SELFPAY ==
[2024-10-07 16:51] LABS: Microscopic, Urine URINE MICROSCOPIC (MICROSCOPIC)
[2024-10-07 18:45] LABS: Appearance,Urine CLEAR (Clear); Bilirubin,Urine Negative (Negative); Blood, Urine TRACE-I (Negative); Color,Urine YELLOW (Yellow); Glucose,Urine (UA) Negative (Negative); Ketones,Urine Negative (Negative); Leukocyte Esterase,Urine 3+ (Negative); Nitrate,Urine POSITIVE (Negative); Protein,Urine Negative (Negative); Urobilinogen,Urine 0.2 EU/dl (0.2)
[2024-10-07 19:06] LABS: WBC,Urine TNTC #/hpf (0-3)
[2024-10-07 19:07] LABS: Bacteria,Urine 4+ /lpf
== END 2024-10-07 23:59 | disposition home or self-care (01) ==
LOC: LAB.DROPOF 10-11 12:01
PROVIDERS: PCP Student in an Organized Health Care Education/Training Program; Visit Provider Student in an Organized Health Care Education/Training Program
DX: R39.9 Unspecified symptoms and signs involving the genitourinary system (principal)
CPT/HCPCS: 81001; 87086; 87088; 87186

== ENCOUNTER 2025-06-22 09:24 | Outpatient (CLI) | payer MEDICAID, SELFPAY ==
--- OUTSIDE RECORDS SUMMARY | 2025-06-22 09:28 | XMS_ITS | Clinical Summary ---
Author Organization Healthcare Address [address] [id number] Care Team Providers Care Fiscal Manager Name Role Phone Nora Foster Primary Care Provider [phone] Family History Medical History Relation Name Comments Atrial fibrillation Mother Breast cancer Mother Conversions - Other Mother S/P CABG x 1 Coronary artery disease Mother Stroke Mother Atrial fibrillation Sibling 1 Stroke Sibling 2 Coronary artery disease Sibling 3 Conversions - Other Sibling 4 S/P CABG x 1 Relation Name Status Comments Mother Sibling 1 Sibling 2 Sibling 3 Sibling 4 Social History Tobacco Use Types Packs/Day Years Used Date Smoking Tobacco: Never Alcohol Use Standard Drinks/Week Comments No 0 (1 standard drink = 0.6 oz pur e alcohol) Comments Unknown Sex and Gender Information Value Date Recorded Sex Assigned at Not on file Legal Sex Female 6:10 PM EDT Gender Identity Not on file Sexual Orientation Not on file Last Filed Vital Signs Vital Sign Reading Time Taken Comments Blood Pressure 112/68 02/15/2020 10:09 AM EDT Pulse 93 02/15/2020 10:09 AM EDT Temperature - - Respiratory Rate - - Oxygen Saturation - - Inhaled Oxygen Concentration - - Weight 63.5 kg (139 lb 15.9 oz) 020 10:54 AM EST Height 162.6 cm (5' 4 ) 09/03/2020 10:5 4 AM EST Body Mass Index 24.03 09/03/2020 10:54 AM EST Plan of Treatment Not on file Care Teams Fiscal Manager Relationship Specialty Start Date End Date Nora Foster PA [address] [place] [address] PCP - General 02/01/21
[2025-06-22 09:47] LABS: Hematocrit 41.9 % (37.0-47.0); Hemoglobin 13.5 g/dL (12.2-16.2); Immature Granulocytes % 0.3 %; Mean Corpuscular HGB Conc 32.2 g/dL (31.8-35.4); Mean Corpuscular Hemoglobin 30.1 pg (27.0-31.2); Mean Corpuscular Volume 93.5 fl (81-99); Nucleated Red Blood Cells % 0 %; Platelet Count 215 K/mm3 (142-424); Red Blood Count 4.48 M/mm3 (4.20-5.40); Red Cell Distribution Width-SD 43.2 fL; White Blood Count 6.0 K/mm3 (4.8-10.8)
[2025-06-22 10:39] LABS: Alanine Aminotransferase 17 U/L (12-78); Albumin Level 4.5 g/dl (3.5-5.0); Alkaline Phosphatase 75 U/L (38-126); Anion Gap 15.5 mEq/L (5-15); Aspartate Amino Transferase 25 U/L (14-36); Bilirubin,Direct 0.3 mg/dl (0.0-0.4); Bilirubin,Indirect 0.7 mg/dL (0.0-0.9); Bilirubin,Total 1.0 mg/dl (0.2-1.3); Bilirubin,Unconjugated 0.8 mg/dL (0.0-1.1); Blood Urea Nitrogen 22 mg/dl (7-17); Calcium 10.0 mg/dl (8.4-10.2); Carbon Dioxide 24 mmol/L (22.0-30.0); Chloride 104 mmol/L (98-107); Cholesterol 181 mg/dl (140-200); Creatinine,Serum 1.10 mg/dl (0.52-1.04); Estimated Glomerular Filt Rate 51 ml/min (>60); GFR (African American) 61 ML/MIN (>60); Glucose 85 mg/dl (74-100); HDL Cholesterol 65 mg/dl (40-60); Magnesium 2.1 mg/dl (1.6-2.3); Potassium 4.5 mmoL/L (3.5-5.1); Sodium 139 mmol/L (136-145); Total Protein,Serum 7.0 g/dl (6.3-8.2); Triglycerides 70 mg/dl (30-150)
[2025-06-22 11:09] LABS: Thyroid Stimulating Hormone 19.70 uIU/mL (0.465-4.68)
[2025-06-22 11:13] LABS: Free T4 (Free Thyroxine) 0.81 ng/dl (0.78-2.19)
== END 2025-06-22 23:59 | disposition home or self-care (01) ==
LOC: LAB 09:24
PROVIDERS: PCP Physician Assistant; Visit Provider Nurse Practitioner
DX: I25.10 Atherosclerotic heart disease of native coronary artery without angina pectoris (principal); I10 Essential (primary) hypertension; E78.5 Hyperlipidemia, unspecified
CPT/HCPCS: 36415; 80048; 80061; 80076; 83735; 84439; 84443; 85025

== ENCOUNTER 2025-07-04 07:59 | Outpatient (CLI) | payer MEDICAID, SELFPAY ==
--- OUTSIDE RECORDS SUMMARY | 2025-06-01 08:30 | XMS_ITS | Encounter Summary ---
Author Organization [facility] ([place], [place], [place], [place]) Address [address] [place] [address] Care Team Providers Care Market Research Analyst Name Role Phone Nora Foster PA-C Primary Care Provider [phone] Belia Wilson MD Unavailable [phone] Reason for Referral * MRI (Routine) - New Request Specialty Diagnoses / Procedures Referred By Mahesh harmon Referred To Contact Radiology Diagnoses Family history of breast cancer Encounter for breast cancer screening using non-mammogram modality Procedures MR breast without & with IV contrast Norma Singh PA-C [address] [place] [address] Phone: tel: fax: Referral ID Status Reason Start Date Expiration Date V isits Requested Visits Authorized [id number] New Request 11/29/2025 11/29/2026 1 1 Reason for Visit * Reason Comments Follow-up Family history of br east cancer Encounter Details Date Type Department Care Team (Late st Contact Info) Description 06/01/2025 8:30 AM EDT Office Visit [facility] [place] [address] [place] [address] Norma Singh PA-C [address] [place] [address] Family history of breast cancer (Primary Dx); Encounter for breast cancer screening using non-mammogram modality Social History Tobacco Use Types Packs/Day Years Used Date Smoking Tobacco: Never Tobacco Cessation:Counseling Given: Not Answered Alcohol Use Standard Drinks/Week Comments Never 0 (1 standard drink = 0.6 oz pur e alcohol) Family and Community Support Answer Cuate e Recorded Help with Day to Day Activities Not on file 10/02/2023 Feeling Lonely or Isolated Not on file 10/02 Educational Attainment Answer Date Martin rded Speak language other than Nepalese at home Not on file 10/02/2023 Want help with school or training Not on file 10/02/2023 Substance Use Answer Date Recorded Used prescription meds for non-medical reasons N ot on file 10/02/2023 Used illegal drugs past 12 months Not on file 10/02/2023 Comments No Sex and Gender Information Value Date Recorded Sex Assigned at Not on file Legal Sex Female 1:18 PM CDT Gender Identity Not on file Sexual Orientation Not on file documented as of this encounter Last Filed Vital Signs Vital Sign Reading Time Taken Comments Blood Pressure 129/66 06/01/2025 8:28 AM EDT Pulse 59 06/01/2025 8:28 AM EDT Temperature 36.5 C (97.7 F) 06/01/2025 8:28 AM EDT Respiratory Rate 18 06/01/2025 8:28 AM EDT Oxygen Saturation 98% 06/01/2025 8:28 AM EDT Inhaled Oxygen Concentration - - Weight 65.3 kg (143 lb 14.4 oz) 06/01/2025 8:28 AM EDT Height 162.6 cm (5' 4 ) 06/01/2025 8:28 AM EDT Body Mass Index 24.7 06/01/2025 8:28 AM EDT documented in this encounter Progress Notes * Norma Singh PA-C - 06/01/2025 8:30 AM EDT [facility] Note Chief Complaint: Breast cancer risk reduction and screening Lifetime risk estimate 31.81% by Antonia Will History of Present Illness: Kristen Armenta is a 59 y.o. female returns for high risk breast cancer screening. Denies any breast concerns today. No new interval health events. She is up-to-date on her colonoscopy screening. Sheis getting for Pap smear next week. 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 No concerning moles or lesions today. No other concerns at this time. Past Medical History: Diagnosis Date Heart disease Migraine Thyroid disease Past Surgical History: Procedure Laterality Date CHOLECYSTECTOMY open heart Social History Socioeconomic History Marital status: Spouse name: Not on file Number of children: Not on file Years of education: Not on file Highest education level: Not on file Occupational History Not on file Tobacco Use Smoking status: Never Smokeless tobacco: Not on file Vaping Use Vaping status: Never Used Substance and Sexual Activity Alcohol use: Never Drug use: Never Sexual activity: Not on file Other Topics Concern Not on file Social History Narrative Not on file Social Drivers of Health Food Insecurity: Not on file Transportation: Not on file Family History Problem Relation Name Age of Onset Cancer Mother Hypertension Father Cancer Sister Cancer Brother No Known Problem Maternal Aunt No Known Problem Maternal Uncle No Known Problem Paternal Aunt No Known Problem Paternal Uncle No Known Problem Maternal Grandmother No Known Problem Maternal Grandfather No Known Problem Paternal Grandmother No Known Problem Paternal Grandfather Mitral valve prolapse Daughter Mitral valve prolapse Son No Known Problem Other Allergies: Patient has no known allergies. Medications: Current Outpatient Medications on File Prior to Visit Medication Sig Dispense Refill alendronate (FOSAMAX) 70 MG tablet Take 1 tablet (70 mg total) by mouth once a week. aspirin 81 mg Cap Take 81 mg by mouth daily. atorvastatin (LIPITOR) 10 MG tablet Take 1 tablet (10 mg total) by mouth daily. cetirizine (ZyrTEC) 10 MG tablet Take 1 tablet (10 mg total) by mouth daily. evolocumab (Repatha SureClick) 140 mg/mL pen injector Inject 140 mg under the skin every 14 (fourteen) days. fluticasone propionate (FLONASE) 50 mcg/actuation nasal spray 1 spray 2 (two) times daily. levothyroxine (SYNTHROID, LEVOTHROID) 100 MCG tablet Take 1 tablet (100 mcg total) by mouth daily. losartan (COZAAR) 50 MG tablet Take 1 tablet (50 mg total) by mouth daily. metoprolol succinate (TOPROL-XL) 50 MG 24 hr tablet Take 1 tablet (50 mg total) by mouth every morning. No current facility-administered medications on file prior to visit. Review of Systems: 10 systems reviewed and negative except as noted per HPI Vitals Vitals: 06/01/25 0828 BP: 129/66 Pulse: 59 Resp: 18 Temp: 97.7 ??F (36.5 ??C) SpO2: 98% Physical Exam Vitals and nursing note reviewed. Constitutional: General: She is not in acute distress. Appearance: Normal appearance. She is not ill-appearing or toxic-appearing. HENT: Head: Normocephalic and atraumatic. Nose: Nose normal. Eyes: Conjunctiva/sclera: Conjunctivae normal. Cardiovascular: Rate and Rhythm: Normal rate and regular rhythm. Pulmonary: Effort: Pulmonary effort is normal. No respiratory distress. Breath sounds: Normal breath sounds. No wheezing, rhonchi or rales. Chest: Chest wall: No mass or tenderness. Breasts: Right: Normal. Left: Normal. Abdominal: General: Bowel sounds are normal. Musculoskeletal: Cervical back: Normal range of motion and neck supple. Right lower leg: No edema. Left lower leg: No edema. Lymphadenopathy: Cervical: No cervical adenopathy. Skin: General: Skin is warm and dry. Coloration: Skin is not jaundiced or pale. Neurological: General: No focal deficit present. Mental Status: She is alert and oriented to person, place, and time. Motor: No weakness. Gait: Gait normal. Psychiatric: Mood and Affect: Mood normal. Behavior: Behavior normal. Thought Content: Thought content normal. Judgment: Judgment normal. Relevant Results: Mammogram 04/14 FINDINGS: There are no spiculated masses, areas of distortion or suspicious calcifications. IMPRESSION: No mammographic evidence of malignancy BI-RADS CATEGORY: 1 , NEGATIVE. RECOMMENDED FOLLOW-UP: Annual mammography 10/25/2024: PROCEDURE: Contrast enhanced MR of both breasts. REASON FOR EXAM: High risk screening. The patient's mother had premenopausal breast cancer. The patient herself has high density breast tissue. COMPARISON STUDIES: 2022 and 2023 breast MR examinations from [facility] as well as 04/05/2024 screening mammogram from [facility] FINDINGS: There is no evidence of mass or architectural distortion. No suspicious enhancement is present in either breast. No axillary lymphadenopathy is seen. The region of the sternum and parasternal tissues are obscured by an artifact originating from sternotomy wires. These may preclude evaluation of internal mammary lymph nodes. IMPRESSION: FINAL IMPRESSION: ACR BI-RADS 1: Negative. Assessment/Plan: 59 y.o. female presents for Breast cancer risk reduction and high risk screening. Strong family history, heterogeneously dense breasts mammographically. - Physical examination was unremarkable. Patient's last mammogram 04/14 was negative. Continue with alternating mammogram and breast MRIs due to family history of breast cancer and personal history ofheterogenously dense breast. Breast MRI ordered to complete in 6 months. Unfortunately, our breast MRI machine is down. Will schedule at an outside facility. Patient is aware. Follow-up in 6 months. Advised to call with any questions or concerns. Signed: Electronically signed by Norma Singh PA-C 06/01/25 9:03 AM EDT documented in this encounter Plan of Treatment Upcoming Encounters Date Type Department Care Team (Late st Contact Info) Description 11/28/2025 8:30 AM EDT Office Visit [facility] [place] [address] [place] [address] Martine Osorio APRN [address] [place] [address] 04/24/2026 7:45 AM EDT Appointment [facility] [address] [place] [address] Scheduled Orders Name Type Priority Associated Diagnoses Orde r Schedule MR breast without & with IV contrast Imaging Routine Family history of breast cancer Encounter for breast cancer screening using non-mammogram modality Expected: 11/29/2025 (Approximate), Expires: 06/01/2026 documented as of this encounter Visit Diagnoses Diagnosis Family history of breast cancer- Primary Family history of malignant neoplasm of breast Encounter for breast cancer screening using non-mammogram modality documented in this encounter Care Teams Market Research Analyst Relationship Specialty Start Date End Date Nora Foster PA-C [address] [place] [address] PCP - General Physician Cage/Vault Supervisor 10/16/22 Belia Wilson MD [address] [place] [address] Hematology and Oncology 10/20/23 documented as of this encounter
--- NOTE | 2025-07-04 08:00 | CA_ITS ---
APPROVED REPORT EXAM: Comprehensive 2D, Doppler, and color-flow Echocardiogram Learning And Development Analyst: Lily Singh RT(R) Ht: 5 ft 4 in Wt: 142lbs BSA: 1.69 BP: 102/70 mmHg Indications: bioprosthetic aortic valve 2020 2D Dimensions EF AP4 59.90 % GL Strain -18.5 % M-Mode Dimensions RVDd 1.97 cm (0.9-2.6) LA Diam 3.23 cm (1.9-4.0) LVDd 5.26 cm (3.5-5.7) LVDs 4.04 cm (3.5-5.7) IVSd 0.86 cm (0.6-1.1) PWd 0.93 cm (0.6-1.1) EF (Teich) 46.10% FS 23.20% EDV (Teich) 133.00 mL ESV (Teich) 71.70 mL LV Diastology E Decel Time 270 (160-240 msec) E/A Ratio 1.3 Aortic Valve MARINO Index 0.88 cm2/m2 AoV Peak Moi. 197.0 (50-130 cm/s) AO Peak GR. 15.60 mmHg AO Mean GR. 7.70 (<5 mmHg) AO VTI 45.1 (18-25 cm) MARINO (VTI) 1.53 (2.5-4.5 cm2) Mitral Valve MV E Max Moi. 97.0 (40-130 cm/s) MV A Velocity 76.0 (40-130 cm/s) E/A Ratio 1.29 MV PHT 79.0 ms Left Ventricle The left ventricle is normal size. Left ventricular systolic function is normal. The left ventricular ejection fraction is within the normal range. There is increased left ventricular wall thickness. There is normal LV segmental wall motion. The left ventricular diastolic function is indeterminate. LVEF is 50-55% Right Ventricle The right ventricle is normal size. The right ventricular systolic function is normal. Atria The left atrium is mildly dilated. The right atrium is mildly dilated. There is no color Doppler evidence of interatrial shunt. Aortic Valve s/p bioprosthetic aortic valve. The prosthesis is well-seated. Peak velocity 1.9 m/s. Mean AV gradient 7 mmHg. Max AV gradient 15 mmHg. Mild aortic regurgitation is present. Mitral Valve The mitral valve is mildly thickened. No evidence of mitral valve stenosis. Mil dmitral regurgitation is present. Tricuspid Valve The tricuspid valve leaflets are thin and pliable. Trace tricuspid regurgitation. There is insufficient TR jet to estimate RVSP. Pulmonic Valve The pulmonary valve is grossly normal in structure. Trace pulmonic valve regurgitation is present. Great Vessels The aortic root is normal in size. IVC is normal in size and collapses >50% with inspiration. Pericardium There is no pericardial effusion. Other Information Study Quality: Fair Conclusion Normal biventricular systolic function. Mild biatrial dilation. s/p bioprosthetic AVR. Mild AI. Acceptable AV gradients (peak velocity 1.9 m/s. Mean AV gradient 7 mmHg. Max AV gradient 15 mmHg). Mild MR. Electronically signed by : Tomeka Kasper MD 07/09/2025 17:43:58
--- OUTSIDE RECORDS SUMMARY | 2025-07-04 08:01 | XMS_ITS | Data Portability ---
Author Organization [employer] [place] - [facility] Address [address] [place] [address] Assessment No assessment recorded. Plan of Treatment Reminders Order Date Submit Date Provider Last Modified By Organization Details Last Modified Time Details Appointments FOLLOW UP 30 2024 01:00P Yobani Foster PA-C Not available Not available Not available Lab TSH + free T4, serum [facility]24 [facility] [address] [place], [address], 01/18/2025 11:11:57 lipid panel, serum 2024 025 [facility] [address] [place], [address], 01/18/2025 11:11:58 iron + TIBC + ferritin, serum 2024 025 [facility] [address] [place], [address], 01/18/2025 11:11:56 CMP, serum or plasma 2024 025 [facility] [address] [place], [address], 01/18/2025 11:11:58 CBC w/ auto diff 2024 025 [facility] [address] [place], [address], 01/18/2025 11:11:57 rf (rheumato id factor), serum [address] [facility] ([place]), [address] [place], [address], 07/27/2024 14:10:28 JAIRO (antinucl ear antibodie s) screen, serum [address] [facility] ([place]), [address] [place], [address], 07/27/2024 14:10:31 C reactive protein, QN, serum or plasma [address] [facility] ([place]), [address] [place], [address], 07/27/2024 14:10:32 ESR (erythroc yte sedimenta tion rate), blood [address] [facility] ([place]), [address] [place], [address], 07/27/2024 14:10:31 ccp (cyclic citrullin ated peptide) iga+igg, serum [address] [facility] ([place]), [address] [place], [address], 07/27/2024 14:10:30 HIV 1 + 2, meaningfu l use set 2023 [facility]), [address] [place], [address], 07/27/2024 14:10:29 Hepatitis C IgG Ab, qual, serum 2023 [facility]), [address] [place], [address], 07/27/2024 14:10:28 CBC w/ auto diff 2023 [facility]), [address] [place], [address], 07/27/2024 14:10:25 CMP, serum or plasma 2023 024 [facility]), [address] [place], [address], 07/27/2024 14:10:26 vitamin B12 + folate, serum or blood 2023 024 [facility]), [address] [place], [address], 07/27/2024 14:10:27 TSH + free T4, serum 2023 024 [facility]), [address] [place], [address], 07/27/2024 14:10:24 vitamin D, 25-hydrox y, total, serum 2023 024 [facility]), [address] [place], [address], 07/27/2024 14:10:29 lipid panel, serum 2023 024 [facility]), [address] [place], [address], 07/27/2024 14:10:26 iron + TIBC + ferritin, serum 2023 024 [facility]), [address] [place], [address], 07/27/2024 14:10:24 Referral orthopedi c surgeon referral - first available appt 2024 025 [facility], [address], [place], [address], 02/15/2025 16:54:47 dermatolo gist referral 2024 025 [facility], [address] [place], [address], 02/21/2025 15:06:57 Procedures None recorded. Surgeries None recorded. Imaging home sleep study 2024 025 [facility], [address], [place], [address], 03/28/2025 09:44:13 MRI, thoracic spine, w/o contrast - back pain, has done chiro, NSAIDs, Xray [address] (Scheduling), [address], [place], [address], 09/19/2024 08:42:07 XR, thoracic spine, 3 view 2023 024 [facility] (Radiology), [address] [facility], [place], [address], 07/26/2024 17:11:50 Medication Orders Adipex-P 37.5 mg tablet 2024 025 [facility], [address], [address], 01/17/2025 13:09:45 fluticaso ne propionat e 50 mcg/actua tion nasal spray,joan pension 2023 024 [facility], [address] [place], [address], 08/30/2024 09:22:04 prednison e 20 mg tablet 2023 025 [facility], [address], [address], 01/17/2025 10:29:57 Patient TargetsNo targets recorded. Patient InstructionsNo instructions recorded. Reason for Referral National Secretary Referral for N eoplasm of uncertain behavior of skin of face Referring Physician: Nora Foster, Family Medicine, Encounter Date: 01/17/2025 Orthopedic Surgeon Referral for Pain in right thumb first available appt Referring Physician: Nora Foster, Family Medicine, Encounter Date: 01/17/2025 Results Created Date Observation Date Name Description Value Unit Range Abnormal Flag Note LastModifiedBy Organization Detail LastModifiedTime 07/26/20 24 07/27/2024 FE+TI BC+FE R iron bind.cap.(TI BC) 321 ug/dL 250-45 0 normal Not Available [facility] [address] [place], [address], 07/27/2024 14:10:24 07/26/20 24 07/27/2024 FE+TI BC+FE R UIBC 292 ug/dL 131-42 5 normal Not Available [facility] [address] [place], [address], 07/27/2024 14:10:24 07/26/20 24 07/27/2024 FE+TI BC+FE R iron 29 ug/dL 27-159 normal Not Available [facility] [address] [place], [address], 07/27/2024 14:10:24 07/26/20 24 07/27/2024 FE+TI BC+FE R iron saturation 9 % 15-55 alert low Not Available [facility] [address] [place], [address], 07/27/2024 14:10:24 07/26/20 24 07/27/2024 FE+TI BC+FE R ferritin 155 NG/mL 15-150 above high normal Not Available [facility] [address] [place], [address], 07/27/2024 14:10:24 07/26/20 24 07/27/2024 TSH+F REE T4 TSH 0.079 uIU/m L 0.450- 4.500 below low normal Not Available [facility] [address] [place], [address], 07/27/2024 14:10:24 07/26/20 24 07/27/2024 TSH+F REE T4 T4,free(dire ct) 2.00 NG/dL 0.82-1 .77 above high normal Not Available [facility] [address] [place], [address], 07/27/2024 14:10:24 07/26/20 24 07/27/2024 CBC WITH DIFFE RENTI AL/PL ATELE T WBC 7.8 x10e3 /uL 3.4-10 .8 normal Not Available [facility] [address] [place], [address], 07/27/2024 14:10:25 07/26/20 24 07/27/2024 CBC WITH DIFFE RENTI AL/PL ATELE T RBC 4.09 x10e6 /uL 3.77-5 .28 normal Not Available [facility] [address] [place], [address], 07/27/2024 14:10:25 07/26/20 24 07/27/2024 CBC WITH DIFFE RENTI AL/PL ATELE T hemoglobin 12.1 g/dL 11.1-1 5.9 normal Not Available [facility] [address] [place], [address], 07/27/2024 14:10:25 07/26/20 24 07/27/2024 CBC WITH DIFFE RENTI AL/PL ATELE T hematocrit 38.1 % 34.0-4 6.6 normal Not Available [facility] [address] [place], [address], 07/27/2024 14:10:25 07/26/20 24 07/27/2024 CBC WITH DIFFE RENTI AL/PL ATELE T MCV 93 fL 79-97 normal Not Available [facility] [address] [facility], [place], [address], 07/27/2024 14:10:25 07/26/20 24 07/27/2024 CBC WITH DIFFE RENTI AL/PL ATELE T MCH 29.6 pg 26.6-3 3.0 normal Not Available [facility] [address] [facility], [place], [address], 07/27/2024 14:10:25 07/26/20 24 07/27/2024 CBC WITH DIFFE RENTI AL/PL ATELE T MCHC 31.8 g/dL 31.5-3 5.7 normal Not Available [facility] [address] [facility], [place], [address], 07/27/2024 14:10:25 07/26/20 24 07/27/2024 CBC WITH DIFFE RENTI AL/PL ATELE T RDW 12.4 % 11.7-1 5.4 Not Available [facility] [address] [place], [address], 07/27/2024 14:10:25 07/26/20 24 07/27/2024 CBC WITH DIFFE RENTI AL/PL ATELE T platelets 240 x10e3 /uL 150-45 0 normal Not Available [facility] [address] [place], [address], 07/27/2024 14:10:25 07/26/20 24 07/27/2024 CBC WITH DIFFE RENTI AL/PL ATELE T neutrophils 69 % not estab. normal Not Available [facility] [address] [place], [address], 07/27/2024 14:10:25 07/26/20 24 07/27/2024 CBC WITH DIFFE RENTI AL/PL ATELE T lymphs 21 % not estab. normal Not Available [facility] [address] [place], [address], 07/27/2024 14:10:25 07/26/20 24 07/27/2024 CBC WITH DIFFE RENTI AL/PL ATELE T monocytes 7 % not estab. normal Not Available [facility] [address] [place], [address], 07/27/2024 14:10:25 07/26/20 24 07/27/2024 CBC WITH DIFFE RENTI AL/PL ATELE T eos 2 % not estab. normal Not Available [facility] [address] [place], [address], 07/27/2024 14:10:25 07/26/20 24 07/27/2024 CBC WITH DIFFE RENTI AL/PL ATELE T basos 1 % not estab. normal Not Available [facility] [address] [facility], [place], [address], 07/27/2024 14:10:25 07/26/20 24 07/27/2024 CBC WITH DIFFE RENTI AL/PL ATELE T immature cells [employer] Not Available [facility] [address] [place], [address], 07/27/2024 14:10:25 07/26/20 24 07/27/2024 CBC WITH DIFFE RENTI AL/PL ATELE T neutrophils (absolute) 5.4 x10e3 /uL 1.4-7. 0 normal Not Available [facility] [address] [place], [address], 07/27/2024 14:10:25 07/26/20 24 07/27/2024 CBC WITH DIFFE RENTI AL/PL ATELE T lymphs (absolute) 1.7 x10e3 /uL 0.7-3. 1 normal Not Available [facility] [address] [facility] [place], [address], 07/27/2024 14:10:25 07/26/20 24 07/27/2024 CBC WITH DIFFE RENTI AL/PL ATELE T monocytes(ab solute) 0.5 x10e3 /uL 0.1-0. 9 normal Not Available [facility] [address] [facility], [place], [address], 07/27/2024 14:10:25 07/26/20 24 07/27/2024 CBC WITH DIFFE RENTI AL/PL ATELE T eos (absolute) 0.1 x10e3 /uL 0.0-0. 4 normal Not Available [facility] [address] [facility], [place], [address], 07/27/2024 14:10:25 07/26/20 24 07/27/2024 CBC WITH DIFFE RENTI AL/PL ATELE T baso (absolute) 0.1 x10e3 /uL 0.0-0. 2 normal Not Available [facility] [address] [facility], [place], [address], 07/27/2024 14:10:25 07/26/20 24 07/27/2024 CBC WITH DIFFE RENTI AL/PL ATELE T immature granulocytes 0 % not estab. Not Available [facility] [address] [facility], [place], [address], 07/27/2024 14:10:25 07/26/20 24 07/27/2024 CBC WITH DIFFE RENTI AL/PL ATELE T immature grans (abs) 0.0 x10e3 /uL 0.0-0. 1 Not Available [facility] [address] [facility], [place], [address], 07/27/2024 14:10:25 07/26/20 24 07/27/2024 CBC WITH DIFFE RENTI AL/PL ATELE T NRBC [employer] Not Available [facility] [address], [place], [address], 07/27/2024 14:10:25 07/26/20 24 07/27/2024 CBC WITH DIFFE JOSE DANIEL AL/PL ATELE T hematology comments: [employer] Not Available [facility] [address] [facility], [place], [address], 07/27/2024 14:10:25 07/26/20 24 07/27/2024 COMP. METAB OLIC PANEL (14) glucose 88 mg/dL 70-99 normal Not Available [facility] [address] [facility] [place], [address], 07/27/2024 14:10:26 07/26/20 24 07/27/2024 COMP. METAB OLIC PANEL (14) BUN 26 mg/dL 6-24 above high normal Not Available [facility] [address] [facility] [place], [address], 07/27/2024 14:10:26 07/26/20 24 07/27/2024 COMP. METAB OLIC PANEL (14) creatinine 1.03 mg/dL 0.57-1 .00 above high normal Not Available [facility] [address] [facility] [place], [address], 07/27/2024 14:10:26 07/26/20 24 07/27/2024 COMP. METAB OLIC PANEL (14) eGFR 63 mL/mi n/1.7 3 >59 normal Not Available [facility] [address] [facility] [place], [address], 07/27/2024 14:10:26 07/26/20 24 07/27/2024 COMP. METAB OLIC PANEL (14) BUN/creatini ne ratio 25 9-23 above high normal Not Available [facility] [address] [facility] [place], [address], 07/27/2024 14:10:26 07/26/20 24 07/27/2024 COMP. METAB OLIC PANEL (14) sodium 140 mmol/ L 134-14 4 normal Not Available [facility] [address] [facility] [place], [address], 07/27/2024 14:10:26 07/26/20 24 07/27/2024 COMP. METAB OLIC PANEL (14) potassium 4.1 mmol/ L 3.5-5. 2 normal Not Available [facility] [address] [facility] [place], [address], 07/27/2024 14:10:26 07/26/20 24 07/27/2024 COMP. METAB OLIC PANEL (14) chloride 105 mmol/ L 96-106 normal Not Available [facility] [address] [facility] [place], [address], 07/27/2024 14:10:26 07/26/20 24 07/27/2024 COMP. METAB OLIC PANEL (14) carbon dioxide, total 22 mmol/ L 20-29 normal Not Available [facility] [address] [facility] [place], [address], 07/27/2024 14:10:26 07/26/20 24 07/27/2024 COMP. METAB OLIC PANEL (14) calcium 9.6 mg/dL 8.7-10 .2 normal Not Available [facility] [address] [facility] [place], [address], 07/27/2024 14:10:26 07/26/20 24 07/27/2024 COMP. METAB OLIC PANEL (14) protein, total 6.9 g/dL 6.0-8. 5 normal Not Available [facility] [address] [facility] [place], [address], 07/27/2024 14:10:26 07/26/20 24 07/27/2024 COMP. METAB OLIC PANEL (14) albumin 4.5 g/dL 3.8-4. 9 normal Not Available [facility] [address] [facility] [place], [address], 07/27/2024 14:10:26 07/26/20 24 07/27/2024 COMP. METAB OLIC PANEL (14) globulin, total 2.4 g/dL 1.5-4. 5 Not Available [facility] [address] [facility], [place], [address], 07/27/2024 14:10:26 07/26/20 24 07/27/2024 COMP. METAB OLIC PANEL (14) bilirubin, total 0.7 mg/dL 0.0-1. 2 normal Not Available [facility] [address] [facility] [place], [address], 07/27/2024 14:10:26 07/26/20 24 07/27/2024 COMP. METAB OLIC PANEL (14) alkaline phosphatase 71 IU/L 44-121 normal Not Available [facility] [address] [facility], [place], [address], 07/27/2024 14:10:26 07/26/20 24 07/27/2024 COMP. METAB OLIC PANEL (14) AST (SGOT) 17 IU/L 0-40 normal Not Available [facility] [address] [place], [address], 07/27/2024 14:10:26 07/26/20 24 07/27/2024 COMP. METAB OLIC PANEL (14) ALT (SGPT) 10 IU/L 0-32 normal Not Available [facility] [address] [facility] [place], [address], 07/27/2024 14:10:26 07/26/20 24 07/27/2024 LIPID PANEL cholesterol, total 139 mg/dL 100-19 9 normal Not Available [facility] [address] [facility], [place], [address], 07/27/2024 14:10:26 07/26/20 24 07/27/2024 LIPID PANEL triglyceride s 54 mg/dL 0-149 normal Not Available [facility] [address] [facility], [place], [address], 07/27/2024 14:10:26 07/26/20 24 07/27/2024 LIPID PANEL HDL cholesterol 57 mg/dL >39 normal Not Available [facility] [address] [facility], [place], [address], 07/27/2024 14:10:26 07/26/20 24 07/27/2024 LIPID PANEL VLDL cholesterol marielle 12 mg/dL 5-40 Not Available [facility] [address] [facility], [place], [address], 07/27/2024 14:10:26 07/26/20 24 07/27/2024 LIPID PANEL LDL chol calc ([facility]) 70 mg/dL 0-99 Not Available [facility] [address] [facility], [place], [address], 07/27/2024 14:10:26 07/26/20 24 07/27/2024 LIPID PANEL LDL calc comment: [employer] Not Available [facility] [address] [facility], [place], [address], 07/27/2024 14:10:26 07/26/20 24 07/27/2024 VITAM IN B12 AND FOLAT E vitamin B12 573 pg/mL 232-12 45 normal Not Available [facility] [address] [facility], [place], [address], 07/27/2024 14:10:27 07/26/20 24 07/27/2024 VITAM IN B12 AND FOLAT E folate (folic acid), serum 9.3 NG/mL >3.0 normal A serum folat e efra ntrat ion of less than 3.1 ng/mL is consi dered to repre sent clini marielle defic iency . Not Available [facility] [address] [facility], [place], [address], 07/27/2024 14:10:27 07/26/20 24 07/27/2024 HCV ANTIB JOHN CASCA DE(PC R/GEN O) HCV Ab NON REACTI VE non reacti ve Not Available [facility] [address] [facility], [place], [address], 07/27/2024 14:10:27 07/26/20 24 07/27/2024 HCV ANTIB JOHN CASCA DE(PC R/GEN O) interpretati on: COMMEN T Not infec chastity with HCV unles s early or acute infec tion is suspe cted (whic h may be delay ed in an immun ocomp romis ed indiv idual ), or other evide nce exist s to indic ate HCV infec tion. Not Available [facility] [address] [facility], [place], [address], 07/27/2024 14:10:27 07/26/20 24 07/27/2024 RHEUM ATOID FACTO R (RF) rheumatoid factor (rf) 10.2 IU/mL <14.0 normal Not Available [facility] [address] [facility], [place], [address], 07/27/2024 14:10:28 07/26/20 24 07/27/2024 VITAM IN D, 25-HY DROXY vitamin D, 25-hydroxy 45.5 NG/mL 30.0-1 00.0 Vitam in D defic iency has been defin ed by the Insti tute of Medic ine and an Endoc rine Socie ty pract ice guide line as a level of serum 25-OH vitam in D less than 20 ng/mL (1,2) . The Endoc rine Socie ty went on to furth er defin e vitam in D insuf ficie ncy as a level betwe en 21 and 29 ng/mL (2). 1. IOM (Inst itute of Medic ine). 2010. Dieta ry refer ence intak es for calci um and D. Ivana sims [place]: [facility] [employer] [facility] . 2. Kurtis hernandez [place], Sienna anderson [place], Lila off-F errar i SAPP, et al. Evalu ation , treat ment, and preve ntion of vitam in D defic iency : an Endoc rine Socie ty clini marielle pract ice guide line. JCEM. 2010; 96(7) :1911 -30. Not Available [facility] [address] [place], [address], 07/27/2024 14:10:29 07/26/20 24 07/27/2024 HIV AB/P2 4 AG WITH REFLE X HIV Ab/P24 Ag screen NON REACTI VE non reacti ve HIV-1 /HIV- 2 antib odies and HIV-1 p24 antig en were NOT detec chastity. There is no labor atory evide nce of HIV infec tion. HIV Negat aydin Not Available [facility] [address] [place], [address], 07/27/2024 14:10:29 07/26/20 24 07/27/2024 ANTI- CCP AB, IGG/I GA anti-ccp Ab, IgG/IgA 8 units 0-19 Negat aydin <20 Weak posit aydin 20 - 39 Moder ate posit aydin 40 - 59 Stron g posit aydin >59 Not Available [facility] [address] [place], [address], 07/27/2024 14:10:30 07/26/20 24 07/27/2024 ANTIN UCLEA R AB MULTI PLEX RFX 9 JAIRO direct NEGATI VE negati ve Not Available [facility] [address] [place], [address], 07/27/2024 14:10:31 07/26/20 24 07/27/2024 SEDIM ENTAT ION RATE- WESTE RGREN sedimentatio n rate-westerg guy 4 mm/HR 0-40 normal Not Available [facility] [address] [facility], [place], [address], 07/27/2024 14:10:31 07/26/20 24 07/27/2024 C-RANDEE CTIVE PROTE IN, QUANT C-reactive protein, quant 20 mg/L 0-10 above high normal Not Available [facility] [address] [facility], [place], [address], 07/27/2024 14:10:32 01/18/20 25 01/18/2025 FE+TI BC+FE R iron bind.cap.(TI BC) 319 ug/dL 250-45 0 normal Not Available [facility] [address] [facility], [place], [address], 01/18/2025 11:11:56 01/18/20 25 01/18/2025 FE+TI BC+FE R UIBC 259 ug/dL 131-42 5 normal Not Available [facility] [address] [place], [address], 01/18/2025 11:11:56 01/18/20 25 01/18/2025 FE+TI BC+FE R iron 60 ug/dL 27-159 normal Not Available [facility] [address] [place], [address], 01/18/2025 11:11:56 01/18/20 25 01/18/2025 FE+TI BC+FE R iron saturation 19 % 15-55 normal Not Available [facility] [address] [place], [address], 01/18/2025 11:11:56 01/18/20 25 01/18/2025 FE+TI BC+FE R ferritin 104 NG/mL 15-150 normal Not Available [facility] [address] [place], [address], 01/18/2025 11:11:56 01/18/20 25 01/18/2025 TSH+F REE T4 TSH 0.197 uIU/m L 0.450- 4.500 below low normal Not Available [facility] [address] [place], [address], 01/18/2025 11:11:57 01/18/20 25 01/18/2025 TSH+F REE T4 T4,free(dire ct) 1.33 NG/dL 0.82-1 .77 normal Not Available [facility] [address] [place], [address], 01/18/2025 11:11:57 01/18/20 25 01/18/2025 CBC WITH DIFFE RENTI AL/PL ATELE T WBC 5.9 x10e3 /uL 3.4-10 .8 normal Not Available [facility] [address] [place], [address], 01/18/2025 11:11:57 01/18/20 25 01/18/2025 CBC WITH DIFFE RENTI AL/PL ATELE T RBC 4.57 x10e6 /uL 3.77-5 .28 normal Not Available [facility] [address] [place], [address], 01/18/2025 11:11:57 01/18/20 25 01/18/2025 CBC WITH DIFFE RENTI AL/PL ATELE T hemoglobin 13.6 g/dL 11.1-1 5.9 normal Not Available [facility] [address] [place], [address], 01/18/2025 11:11:57 01/18/20 25 01/18/2025 CBC WITH DIFFE RENTI AL/PL ATELE T hematocrit 41.4 % 34.0-4 6.6 normal Not Available [facility] [address] [facility], [place], [address], 01/18/2025 11:11:57 01/18/20 25 01/18/2025 CBC WITH DIFFE RENTI AL/PL ATELE T MCV 91 fL 79-97 normal Not Available [facility] [address] [facility], [place], [address], 01/18/2025 11:11:57 01/18/20 25 01/18/2025 CBC WITH DIFFE RENTI AL/PL ATELE T MCH 29.8 pg 26.6-3 3.0 normal Not Available [facility] [address] [facility], [place], [address], 01/18/2025 11:11:57 01/18/20 25 01/18/2025 CBC WITH DIFFE RENTI AL/PL ATELE T MCHC 32.9 g/dL 31.5-3 5.7 normal Not Available [facility] [address] [place], [address], 01/18/2025 11:11:57 01/18/20 25 01/18/2025 CBC WITH DIFFE RENTI AL/PL ATELE T RDW 12.7 % 11.7-1 5.4 Not Available [facility] [address] [place], [address], 01/18/2025 11:11:57 01/18/20 25 01/18/2025 CBC WITH DIFFE RENTI AL/PL ATELE T platelets 238 x10e3 /uL 150-45 0 normal Not Available [facility] [address] [place], [address], 01/18/2025 11:11:57 01/18/20 25 01/18/2025 CBC WITH DIFFE RENTI AL/PL ATELE T neutrophils 61 % not estab. normal Not Available [facility] [address] [facility], [place], [address], 01/18/2025 11:11:57 01/18/20 25 01/18/2025 CBC WITH DIFFE RENTI AL/PL ATELE T lymphs 27 % not estab. normal Not Available [facility] [address] [facility], [place], [address], 01/18/2025 11:11:57 01/18/20 25 01/18/2025 CBC WITH DIFFE RENTI AL/PL ATELE T monocytes 9 % not estab. normal Not Available [facility] [address] [facility], [place], [address], 01/18/2025 11:11:57 01/18/20 25 01/18/2025 CBC WITH DIFFE RENTI AL/PL ATELE T eos 2 % not estab. normal Not Available [facility] [address] [facility], [place], [address], 01/18/2025 11:11:57 01/18/20 25 01/18/2025 CBC WITH DIFFE RENTI AL/PL ATELE T basos 1 % not estab. normal Not Available [facility] [address] [facility], [place], [address], 01/18/2025 11:11:57 01/18/20 25 01/18/2025 CBC WITH DIFFE RENTI AL/PL ATELE T immature cells [employer] Not Available [facility] [address] [place], [address], 01/18/2025 11:11:57 01/18/20 25 01/18/2025 CBC WITH DIFFE RENTI AL/PL ATELE T neutrophils (absolute) 3.6 x10e3 /uL 1.4-7. 0 normal Not Available [facility] [address] [facility], [place], [address], 01/18/2025 11:11:57 01/18/20 25 01/18/2025 CBC WITH DIFFE RENTI AL/PL ATELE T lymphs (absolute) 1.6 x10e3 /uL 0.7-3. 1 normal Not Available [facility] [address] [place], [address], 01/18/2025 11:11:57 01/18/20 25 01/18/2025 CBC WITH DIFFE RENTI AL/PL ATELE T monocytes(ab solute) 0.5 x10e3 /uL 0.1-0. 9 normal Not Available [facility] [address] [place], [address], 01/18/2025 11:11:57 01/18/20 25 01/18/2025 CBC WITH DIFFE RENTI AL/PL ATELE T eos (absolute) 0.1 x10e3 /uL 0.0-0. 4 normal Not Available [facility] [address] [place], [address], 01/18/2025 11:11:57 01/18/20 25 01/18/2025 CBC WITH DIFFE RENTI AL/PL ATELE T baso (absolute) 0.1 x10e3 /uL 0.0-0. 2 normal Not Available [facility] [address] [place], [address], 01/18/2025 11:11:57 01/18/20 25 01/18/2025 CBC WITH DIFFE RENTI AL/PL ATELE T immature granulocytes 0 % not estab. Not Available [facility] [address] [place], [address], 01/18/2025 11:11:57 01/18/20 25 01/18/2025 CBC WITH DIFFE RENTI AL/PL ATELE T immature grans (abs) 0.0 x10e3 /uL 0.0-0. 1 Not Available [facility] [address] [facility], [place], [address], 01/18/2025 11:11:57 01/18/20 25 01/18/2025 CBC WITH DIFFE RENTI AL/PL ATELE T NRBC [employer] Not Available [facility] [address] [facility], [place], [address], 01/18/2025 11:11:57 01/18/20 25 01/18/2025 CBC WITH DIFFE RENTI AL/PL ATELE T hematology comments: [employer] Not Available [facility] [address] [facility], [place], [address], 01/18/2025 11:11:57 01/18/20 25 01/18/2025 COMP. METAB OLIC PANEL (14) glucose 100 mg/dL 70-99 above high normal Not Available [facility] [address] [facility], [place], [address], 01/18/2025 11:11:58 01/18/20 25 01/18/2025 COMP. METAB OLIC PANEL (14) BUN 21 mg/dL 8-27 normal Not Available [facility] [address] [facility], [place], [address], 01/18/2025 11:11:58 01/18/20 25 01/18/2025 COMP. METAB OLIC PANEL (14) creatinine 1.03 mg/dL 0.57-1 .00 above high normal Not Available [facility] [address] [facility], [place], [address], 01/18/2025 11:11:58 01/18/20 25 01/18/2025 COMP. METAB OLIC PANEL (14) eGFR 62 mL/mi n/1.7 3 >59 normal Not Available [facility] [address] [facility] [place], [address], 01/18/2025 11:11:58 01/18/20 25 01/18/2025 COMP. METAB OLIC PANEL (14) BUN/creatini ne ratio 20 12-28 normal Not Available [facility] [address] [facility] [place], [address], 01/18/2025 11:11:58 01/18/20 25 01/18/2025 COMP. METAB OLIC PANEL (14) sodium 140 mmol/ L 134-14 4 normal Not Available [facility] [address] [facility], [place], [address], 01/18/2025 11:11:58 01/18/20 25 01/18/2025 COMP. METAB OLIC PANEL (14) potassium 4.8 mmol/ L 3.5-5. 2 normal Not Available [facility] [address] [facility] [place], [address], 01/18/2025 11:11:58 01/18/20 25 01/18/2025 COMP. METAB OLIC PANEL (14) chloride 104 mmol/ L 96-106 normal Not Available [facility] [address] [facility] [place], [address], 01/18/2025 11:11:58 01/18/20 25 01/18/2025 COMP. METAB OLIC PANEL (14) carbon dioxide, total 19 mmol/ L 20-29 below low normal Not Available [facility] [address] [facility] [place], [address], 01/18/2025 11:11:58 01/18/20 25 01/18/2025 COMP. METAB OLIC PANEL (14) calcium 9.9 mg/dL 8.7-10 .3 normal Not Available [facility] [address] [place], [address], 01/18/2025 11:11:58 01/18/20 25 01/18/2025 COMP. METAB OLIC PANEL (14) protein, total 7.1 g/dL 6.0-8. 5 normal Not Available [facility] [address] [place], [address], 01/18/2025 11:11:58 01/18/20 25 01/18/2025 COMP. METAB OLIC PANEL (14) albumin 4.7 g/dL 3.8-4. 9 normal Not Available [facility] [address] [place], [address], 01/18/2025 11:11:58 01/18/20 25 01/18/2025 COMP. METAB OLIC PANEL (14) globulin, total 2.4 g/dL 1.5-4. 5 Not Available [facility] [address] [place], [address], 01/18/2025 11:11:58 01/18/20 25 01/18/2025 COMP. METAB OLIC PANEL (14) bilirubin, total 0.7 mg/dL 0.0-1. 2 normal Not Available [facility] [address] [place], [address], 01/18/2025 11:11:58 01/18/20 25 01/18/2025 COMP. METAB OLIC PANEL (14) alkaline phosphatase 78 IU/L 44-121 normal Not Available [facility] [address] [place], [address], 01/18/2025 11:11:58 01/18/20 25 01/18/2025 COMP. METAB OLIC PANEL (14) AST (SGOT) 21 IU/L 0-40 normal Not Available [facility] [address] [place], [address], 01/18/2025 11:11:58 01/18/20 25 01/18/2025 COMP. METAB OLIC PANEL (14) ALT (SGPT) 10 IU/L 0-32 normal Not Available [facility] [address] [place], [address], 01/18/2025 11:11:58 01/18/20 25 01/18/2025 LIPID PANEL cholesterol, total 154 mg/dL 100-19 9 normal Not Available [facility] [address] [place], [address], 01/18/2025 11:11:58 01/18/20 25 01/18/2025 LIPID PANEL triglyceride s 92 mg/dL 0-149 normal Not Available [facility] [address] [place], [address], 01/18/2025 11:11:58 01/18/20 25 01/18/2025 LIPID PANEL HDL cholesterol 62 mg/dL >39 normal Not Available [facility] [address] [place], [address], 01/18/2025 11:11:58 01/18/20 25 01/18/2025 LIPID PANEL VLDL cholesterol marielle 17 mg/dL 5-40 Not Available [facility] [address] [place], [address], 01/18/2025 11:11:58 01/18/20 25 01/18/2025 LIPID PANEL LDL chol calc ([facility]) 75 mg/dL 0-99 Not Available [facility] [address] [place], [address], 01/18/2025 11:11:58 01/18/20 25 01/18/2025 LIPID PANEL LDL calc comment: [employer] Not Available [facility] [address] [place], [address], 01/18/2025 11:11:58 07/26/20 24 07/26/2024 XR, thora cic spine , 3 view No observ ation record ed. [email or web address] [facility] (Radiology) [address] , [place], [address], 08/30/2024 12:27:16 01/18/20 25 colon oscop y scree emily (PROC ) No observ ation record ed. [email or web address] Not Available 2024 12:18:52 01/18/20 25 10/25/2024 MRI, breas t, bilat eral, w/wo contr ast No observ ation record ed. [facility] [address], [place], [address], 01/17/2025 16:06:12 03/28/20 25 03/12/2025 home sleep study No observ ation record ed. [facility] [address] [facility] [address], [place], [address], 03/28/2025 13:00:22 04/19/20 25 04/18/2025 MAMMO , scree emily, bilat eral No observ ation record ed. [facility] [address], [place], [address], 04/20/2025 13:18:19 Result Notes None recorded. Problems Name Problem SNOMED Code Status Onset Date Resolution Date Notes Provider Name and Address Organization Details Recorded Time Fatigue 84579641 Active 2023 MARIALUISA Huff [address] [place], [address], [employer] 4 14:38:45 Pain of multiple joints 54932464 Active 2023 MARIALUISA Huff [address] [place], [address], [employer] 4 14:38:49 Thoracic back pain 375644314 Active 2023 MARIALUISA Huff [address] [place] [address], [address], [employer] 4 14:41:14 Dysfuncti on of right eustachia n tube 988981937310 9101 Completed 202301/19/2025 MARIALUISA Huff [address] [place] [address], [address], [employer] 5 11:25:01 Neoplasm of uncertain behavior of skin of face 07851920 Active 2024 MARIALUISA Huff [address] [place] [address], [address], [employer] 5 10:58:45 Pain in right thumb 441561192687 9102 Active 2024 MARIALUISA Huff [address] [place] [address], [address], [employer] 5 11:02:09 Acquired hypothyro idism 299689462 Active 2024 MARIALUISA Huff [address] [place] [address], [address], [employer] 5 11:25:23 Problem Notes None recorded. Procedures Surgical History Date Name Laterality Status Provider Name and Address Organization Details Recorded Time 4 Most Recent Mammogram completed [employer] 07/26/2024 14:09:49 3 Date of Last Pap Smear completed [employer] 01/17/2025 11:01:59 Colposcopy completed [facility] [employer] 07/26/2024 14:09:50 Gallbladder Surgery completed [employer] 07/26/2024 14:09:50 open heart surgery completed [employer] 07/26/2024 14:13:20 Imaging Results None recorded. Procedure Notes None recorded. Medical Equipment None Reported. Allergies No known drug allergies Medications Name Sig Start Date Stop Date Status Note LastModified by Organization Details LastModified Time amoxicillin 500 mg capsule TAKE FOUR CAPSULES BY MOUTH ONE HOUR BEFORE DENTAL APPOINTME NT 01/17 completed Not Available Not Available Not Available atorvastati n 10 mg tablet TAKE 1 TABLET BY MOUTH AT BEDTIME NIGHTLY FOR CHOLESTER OL 07/23 completed Not Available Not Available Not Available azithromyci n 250 mg tablet TAKE 2 TABLETS BY MOUTH ON DAY 1, AND THEN TAKE 1 TABLET BY MOUTH ONCE A DAY ON DAY 2 THROUGH DAY 5 active Not Available Not Available No t Available Retin-A 0.025 % topical cream APPLY CREAM TO THE FACE EVERY THIRD NIGHT TO NIGHTLY TOLERATED . DECREASE USE IF FACE BECOMES TO DRY active Not Available Not Available No t Available metoprolol succinate ER 50 mg tablet,exte nded release 24 hr TAKE 1 TABLET BY MOUTH ONCE DAILY FOR HIGH BLOOD PRESSURE active Not Available Not Available No t Available Adipex-P 37.5 mg tablet Take 1 tablet every day by oral route for 30 days. 2024 active Not Available Not Available Not Avai lable prednisone 20 mg tablet TAKE 1 TABLET BY MOUTH TWICE DAILY active Not Available Not Available No t Available alendronate 70 mg tablet TAKE 1 TABLET BY MOUTH ONCE A WEEK active Not Available Not Available No t Available Synthroid 100 mcg tablet Take 1 tablet every day by oral route for 90 days. 2024 active Not Available Not Available Not Avai lable levothyroxi ne 75 mcg tablet TAKE 1 TABLET BY MOUTH ONCE DAILY active Not Available Not Available No t Available benzonatate 100 mg capsule TAKE 1 CAPSULE BY MOUTH THREE TIMES DAILY NEEDED FOR COUGH active Not Available Not Available No t Available losartan 25 mg tablet TAKE 1 TABLET BY MOUTH ONCE DAILY FOR HIGH BLOOD PRESSURE active Not Available Not Available No t Available levofloxaci n 500 mg tablet TAKE 1 TABLET BY MOUTH EVERY 24 HOURS FOR 7 DAYS 07/23 completed Not Available Not Available Not Available methylpredn isolone 4 mg tablets in a dose pack TAKE BY MOUTH DIRECTED ON INSIDE OF PACKAGE 07/23 completed Not Available Not Available Not Available fluticasone propionate 50 mcg/actuati on nasal spray,suspe nsion [place] 1 spray every day by intranasa l route as directed for 30 days, for congestio n. active Not Available Not Available No t Available Repatha SureClick 140 mg/mL subcutaneou s pen injector INJECT CONTENTS OF 1 PEN SUBCUTANE OUSLY EVERY TWO WEEKS active Not Available Not Available No t Available aspirin 81 mg capsule Take 1 capsule every day by oral route. active Not Available Not Available No t Available Clenpiq 10 mg-3.5 gram-12 gram/175 mL oral solution TAKE 175 ML BY MOUTH FOR 2 DOSES. TAKE FIRST DOSE AT 5-9 PM THE EVENING BEFORE COLONOSCO PY, THEN TAKE SECOND DOSE THE NEXT DAY APPROXIMA TELY 5 HOURS BEFORE COLONOSCO PY 07/23 completed Not Available Not Available Not Available Vitals Date Recorded Body height Body mass index (BMI) Body weight Oxygen saturation Oxygen saturation in Arterial blood by Pulse oximetry Heart rate Body temperature Systolic And Diastolic Provider Name and Address Organization Details Last Updated DateTime 5 162.56 cm 24.6 kg/m2 86917.4 3 g 96 % 96 % 58 /min 98.4 [degF] 116/76 mm[Hg] [facility] 5 10:28:45 Date Recorded Body weight Body mass index (BMI) Body height Oxygen saturation Oxygen saturation in Arterial blood by Pulse oximetry Heart rate Systolic And Diastolic Systolic And Diastolic Systolic And Diastolic Provider Name and Address Organization Details Last Updated DateTime 4 23256.3 4 g 23.9 kg/m2 162.56 cm 95 % 95 % 69 /min 85/53 mm[Hg] 98/65 mm[Hg] 98/60 mm[Hg] [facility] 4 14:19:32 Date Recorded Body height Body mass index (BMI) Body weight Oxygen saturation Oxygen saturation in Arterial blood by Pulse oximetry Heart rate Systolic And Diastolic Provider Name and Address Organization Details Last Updated DateTime 4 162.56 cm 23.8 kg/m2 56451.1 8 g 96 % 96 % 64 /min 110/70 mm[Hg] [facility] 4 08:57:11 Social History Question Answer Notes LastModified by Organizat ion Details LastModified Time Tobacco Smoking Status Never Smoker [place] 07/26/2024 14:09:50 Do You Have An Advance Directive? No Information not available 07/26/2024 Is Your Home Air Conditioned? Yes Information not available 07/26/2024 If You Are , What Was Your Level Of Alcohol Consumption Prior To ? None Information not available 07/26/2024 Do You Wear A Helmet When Biking? No Information not available 07/26/2024 Are You Blind Or Do You Have Difficulty Seeing? No Information not available 07/26/2024 What Is Your Level Of Caffeine Consumption? Occasional Information not available 07/26/2024 What Type Of Paraffin Machine Operator Do You Use? None Information not available 07/26/2024 Have You Been To An Area Known To Be High Risk For COVID-19? No Information not available 07/26/2024 Are You Deaf Or Do You Have Serious Difficulty Hearing? No Information not available 07/26/2024 What Type Of Diet Are You Following? REGULAR Information not available 07/26/2024 What Is The Highest Grade Or Level Of School You Have Completed Or The Highest Degree You Have Received? [id number] Information not available 07/26/2024 Who Is Your Employer? [employer] Information not available 07/26/2024 Have There Been Any Changes To Your Family Or Social Situation? No Information no t available 07/26/2024 Are There Any Guns Present In Your Home? Yes Information not available 07/26/2024 Which Of Your Hands Is Dominant? Right Information not available 07/26/2024 What Is Your Home Situation? Other Information not available 07/26/2024 Do You Have A Medical Power Of Field Hand? Yes Information not available 07/26/2024 What Was The Date Of Your Most Recent Tobacco Screening? 01/17/2025 Information not available 01/17/2025 Are There Any Occupational Health Risks Where You Work? No Information not available 07/26/2024 Do You Have Any Pets? Yes Information not available 07/26/2024 What Is Your Relationship Status? Information not available 07/26/2024 Have You Repeated Any Grades? No Information not available 07/26/2024 Do You Use Your Seat Belt Or Car Seat Routinely? Yes Information not available 07/26/2024 Are You Sexually Active? No Information not available 07/26/2024 Do You Have Any Siblings? Yes Information not available 07/26/2024 Do You Have Smoke And Carbon Monoxide Detectors In Your Home? Yes Information not available 07/26/2024 Are You Passively Exposed To Smoke? No Information no t available 07/26/2024 Are There Any Smokers In Your House? No Information not available 07/26/2024 Do You Participate In Social Media? Yes Information not available 07/26/2024 Do You Use Sunscreen Routinely? No Information not available 07/26/2024 Has Tobacco Cessation Counseling Been Provided? No Information not available 07/26/2024 Have You Recently Traveled Abroad? No Information not available 07/26/2024 Do You Have Difficulty Walking Or Climbing Stairs? No Information not available 07/26/2024 Are You Currently In School? No Information not available 07/26/2024 Do You Have Any Dietary Restrictions? No Information not available 07/26/2024 Sex: Female Functional Status Question Answer Note LastModified by Organizat ion Details LastModified Time Do you use any illicit or recreational drugs? No Information not available 07/26/2024 Do you or have you ever used any other forms of tobacco or nicotine? No Information not available 07/26/2024 What is your level of alcohol consumption? None Information not available 07/26/2024 Are you currently employed? Yes Information not available 07/26/2024 Do you have transportation difficulties? No Information not available 07/26/2024 Are you able to walk independently without assistance or assistive devices? YESWOREST Information not available 07/26/2024 Do you have difficulty doing errands alone? No Information not available 07/26/2024 Are you able to care for yourself independently? Yes Information not available 07/26/2024 Do you have difficulty dressing, bathing, grooming, or toileting? No Information not available 07/26/2024 What is your exercise level? None Information not available 07/26/2024 Mental Status Question Answer Note LastModified by Organizat ion Details LastModified Time Do you feel stressed (tense, restless, nervous, or anxious, or unable to sleep at night)? [id number] Information not available 07/26/2024 Do you have difficulty concentrating, remembering or making decisions? No Information no t available 07/26/2024 Are you or have you been involved with bullying? No Information not available 07/26/2024 Family History Relationship Description Onset Age of this Age Resolved Age Notes LastModified by Organization Details LastModified Time Mother Malignant neoplasm of breast Not available 2023 14:09:48 Father Hypertensive disorder Not available 2023 14:09:48 Medical History Condition Response Coronary Artery Disease N Other N Gout N Kidney Stones N Blood Diseases N Hyperthyroidism N Breast Cancer N Blood Transfusion N Emergency room visit since last appointm ent. N Hypothyroidism Y Lung Disease N COPD N Dermatologic Disorders N Depression N Defects or Inherited Disease N Developmental or Behavioral Disorders N Breast Problem N Difficulty Swallowing N Anesthesia Complications N History of STI N Meniere's disease N Anxiety Disorder N Muscle, Joint, or Bone Problems N Autoimmune disease N Vision or Eye Problems N Arthritis Y Polyps N Infertility N Mental Disorder N Congenital Anomalies N Acid Reflux (GERD) N Cancer N Stroke N Neurologic/Epilepsy N Endometriosis N Bladder or Kidney Problems Y High Cholesterol Y Liver Disease N Psychiatric/Mental Health Condition N Organ Transplant N Dialysis N Fibromyalgia N Schizophrenia N Headaches Y Kidney Disease N Allergies/Hayfever N Heart Problems N Ear or Hearing Problems N Hospitalizations N Learning Disorder N Artificial Joints N Thyroid Problems Y GI Problems N Acne N ADD/ADHD N Eating Disorder N Anemia N Constipation N Mental Illness N Ovarian Cancer N Diabetes N Bedwetting N Hepatitis/Liver Disease N Tuberculosis N Eczema N Diverticulitis N Abuse/Domestic Violence N Asthma N Trauma/Violence N Substance Abuse N Reflux/GERD N Depression/ depression N Hepatitis N Heart Disease Y Pulmonary Embolism N Tourette Syndrome N Pre-Eclampsia N Hypertension N Chronic Ear Infections N Osteoporosis N Chicken Pox N Autism Spectrum Disorder (ASD) N Thrombophilias N Gynecological History Statement/Question Response Menses Monthly N HPV Vaccine N Abnormal Pap N If Post Menopausal, Age at Menopause 49 Date of Last Pap Smear 08/06/2023 Most Recent Mammogram 03/29/2024 Age at First Child 25 Obstetrics History GPAL:G 2 P 2 0 0 2 Type Value Multiple Births 0 Full Term 2 Induced 0 Spontaneous 0 Premature 0 Living 2 Ectopics 0 Total 2 Immunizations Vaccine Type Date Status Note Provider Nam e and Address Organization Details Recorded Time Influenza, split virus, quadrivalent, preservative 9 completed Rosalinda Vice null, [employer] 08/30/2024 08:57:20 Influenza, split virus, quadrivalent, preservative 6 completed Rosalinda Vice null, [employer] 08/30/2024 08:57:21 Tdap 6 completed Rosalinda Vice null, [employer] 08/30/2024 08:57:21 zoster live 9 completed Rosalinda Vice null, [employer] 08/30/2024 08:57:21 zoster live 8 completed Rosalinda Vice null, [employer] 08/30/2024 08:57:21 Hep A, adult 9 completed Rosalinda Vice null, [employer] 08/30/2024 08:57:21 Hep A, adult 8 completed Rosalinda Vice null, [employer] 08/30/2024 08:57:21 Influenza, split virus, quadrivalent, PF 8 completed Rosalinda Vice null, [employer] 08/30/2024 08:57:21 Influenza, split virus, quadrivalent, PF 0 completed Rosalinda Vice null, [employer] 08/30/2024 08:57:21 Past Encounters Encounter ID Performer Location Encounter Start Date Encounter Closed Date Diagnosis/Indication Diagnosis SNOMED-CT Code Diagnosis ICD10 Code Diagnosis IMO Codes Diagnosis Note [id number] MARIALUISA Huff [facility] [address] [place] [address] 07/26/2024 13:57:09 07/26/2024 14:53:04 Fatigue 29204101 R53.83 Pain of mu ltiple joints 36036110 M25.50 Thoracic back pain 77659 8004 M54.6 Adult heal th examination 245711346 Z00.00 [id number] MARIALUISA Huff [facility] [address] [place] [address] 08/30/2024 08:50:10 08/30/2024 09:13:14 Thoracic back pain 397234366 M54.6 Dysfunctio n of right eustachian tube 2990249410 142304 H69.91 [id number] MARIALUISA Huff [facility] [address] [place] [address] 01/17/2025 10:04:11 01/17/2025 11:16:02 Neoplasm of uncertain behavior of skin of face 53448730 D48.5 Fatigue 81287579 R53.83 Pain in right thumb 1076 199654 313178 M79.644 ? trigger thumb/tend inopathy Body mass index 20-24 - normal 269317175 Z68.24 Serum iron below reference range 310845116 R79.0 Hyperlipid emia screening 746584169 Z13.[address] imulating hormone level below reference range 318010829 R94.6 Cardiomyopathy 76810881 I42.9 Health Concerns Section Related Observation LastModified by Organization Detai ls LastModified Time None Recorded Concern Status LastModified by Organization Details LastModified Time None Recorded Advance Directives Directive N: Payers Insurance Date Sequence Insurance Name Policy Number Policy Warner Covered Member ID Warner Member ID Guarantor Name 07/03/2025 [facility] (MEDICA[facility]) Kristen Armenta [id number] Kristen Armenta Notes Date Note Type Note Provider Name and Address Organization Details Recorded Time 07/26/2024 text/html Patient presents to establish care at [facility].Has been tired a lot lately. Would like labs. Has had trouble with her thyroid.Pain between shoulder blades. Has been seeing chiropractor which has helped but still has some pain.Pain in right hand. Hand feels stiff and sore.History of open heart surgery/CABG. MARIALUISA Huff [address] [place], [address], [employer], [facility]. 07/26/2024 16:42:45 08/30/2024 text/html Patient presents for followup. Still having pain between shoulder blades. Xray showed degenerative changes and osteophytes. Has tried physical therapy and chiropractor. 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 MARIALUISA Huff [address] [place], [address], [employer] 08/30/2024 12:36:49 01/17/2025 text/html ROS as noted in the HPI Patient c/o pain right wrist. Right thumb is swollen. Decreased ROM. Has been going on for a few months. History of carpal tunnel, but this is different.History of hypothyroidism.Sta bello she is still extremely fatigued. History of IKE but won't use Cpap. MARIALUISA Huff [address] [place], [address], [employer], [facility]. 01/19/2025 12:27:46 OBGyn Episode No OBEpisode recorded.
--- OUTSIDE RECORDS SUMMARY | 2025-07-04 08:02 | XMS_ITS | Encounter Summary ---
Author Organization [employer] ([place], [place], [place], [place]) Address [address] [place] [address] Care Team Providers Care Sample Mounter Name Role Phone Nora Foster PA-C Primary Care Provider [phone] Belia Wilson MD Unavailable [phone] Reason for Referral * Mammography (Routine) - Authorized Specialty Diagnoses / Procedures Referred By Contac t Referred To Contact Radiology Diagnoses Visit for screening mammogram Procedures MM digital mammo screen with bismark bilateral Nora Foster PA-C [address] [place] [address] Phone: tel: fax: [address] [place] [address] Phone: tel: fax: Referral ID Status Reason Start Date Expiration Date V isits Requested Visits Authorized [id number] Authorized 04/24/2026 04/24/2027 1 1 Encounter Details Date Type Department Care Team (Late st Contact Info) Description 04/18/2025 Outside Orders [address] [place] [address] Nora Foster PA-C [address] [place] [address] Visit for screening mammogram (Primary Dx) Social History Tobacco Use Types Packs/Day Years Used Date Smoking Tobacco: Never Alcohol Use Standard Drinks/Week Comments Never 0 (1 standard drink = 0.6 oz pur e alcohol) Family and Community Support Answer Cuate e Recorded Help with Day to Day Activities Not on file 10/02/2023 Feeling Lonely or Isolated Not on file 10/02 Educational Attainment Answer Date Martin rded Speak language other than [place] at home Not on file 10/02/2023 Want [...] on file documented as of this encounter Plan of Treatment Upcoming Encounters Date Type Department Care Team (Late st Contact Info) Description 11/28/2025 8:30 AM EDT Office Visit [facility] - [place] [address] [place] [address] Martine Osorio APRN [address] [place] [address] 04/24/2026 7:45 AM EDT Appointment [facility] [address] [facility] [address] [place] [address] Scheduled Orders Name Type Priority Associated Diagnoses Orde r Schedule MM digital mammo screen with bismark bilateral Imaging Routine Visit for screening mammogram Expected: 04/24/2026, Expires: 04/24/2027 documented as of this encounter Visit Diagnoses Diagnosis Visit for screening mammogram- Primary documented in this encounter Care Teams Sample Mounter Relationship Specialty Start Date End Date Nora Foster PA-C [address] [place] [address] PCP - General Physician Archeologist Classical 10/16/22 Belia Wilson MD [address] [place] [address] Hematology and Oncology 10/20/23 documented as of this encounter
--- OUTSIDE RECORDS SUMMARY | 2025-07-04 08:02 | XMS_ITS | Clinical Summary ---
Author Organization Healthcare Address [address] [id number] Care Team Providers Care Local Intermodal Truck Driver Name Role Phone Nora Foster Primary Care Provider [phone] Family History Medical History Relation Name Comments [...] of Treatment Not on file Care Teams Local Intermodal Truck Driver Relationship Specialty Start Date End Date Nora Foster PA [address] [place] [address] PCP - General 02/01/21
--- OUTSIDE RECORDS SUMMARY | 2025-07-04 08:02 | XMS_ITS | Encounter Summary ---
Author Organization [employer] ([place], [place], [place], [place]) Address [address] [place] [address] Care Team Providers Care Recreational Director Name Role Phone Nora Foster PA-C Primary Care Provider [phone] Belia Wilson MD Unavailable [phone] Encounter Details Date Type Department Care Team (Latest Contact Info) Description 06/01/2025 Travel Social History Tobacco Use Types Packs/Day Years [...] Date Martin rded Speak language other than Algerian at home Not on file 10/02/2023 Want [...] Description 11/28/2025 8:30 AM EDT Office Visit [facility] - [place] [address] [place] [address] Martine Osorio APRN [address] [facility] [address] [place] [address] 04/24/2026 7:45 AM EDT Appointment [address] [place] [address] documented as of this encounter Visit Diagnoses Not on filedocumented in this encounter Care Teams Recreational Director Relationship Specialty Start Date End Date Nora Foster PA-C [address] [place] [address] PCP - General Physician Head Refrigerating Engineer 10/16/22 Belia Wilson MD [address] [facility] [address] [place] [address] Hematology and Oncology 10/20/23 documented as of this encounter
--- OUTSIDE RECORDS SUMMARY | 2025-07-04 08:02 | XMS_ITS | Referral Summary ---
Author Organization [employer] ([place], [place], [place], [place]) Address [address] [place] [address] Care Team Providers Care Lamp Developer Name Role Phone Nora Foster PA-C Primary Care Provider [phone] Belia Wilson MD Unavailable [phone] Encounters Date Type Department Care Team Description 06/01/2025 Travel 06/01/2025 8:30 AM EDT Office Visit [facility] - [place] [address] [place] [phone] Norma Singh PA-C Family history of breast cancer (Primary Dx); Encounter for breast cancer screening using non-mammogram modality 04/18/2025 Outside Orders [facility] [address] [facility] [address] [place] [address] Nora Foster PA-C Visit for screening mammogram (Primary Dx) 04/18/2025 Travel 04/18/2025 8:00 AM EDT - 04/18/2025 11:59 PM EDT Hospital Encounter [facility] [address] [facility] [address] [place] [address] Nora Foster PA-C Visit for screening mammogram (Primary Dx) Discharge Disposition: Home or Self Care from Last 3 Months Allergies No known active allergies Medications metoprolol succinate (TOPROL-XL) 50 MG 24 hr tablet Take 1 tablet (50 mg total) by mouth every morning. 08/12/2022 Active losartan (COZAAR) 50 MG tablet Take 1 tablet (50 mg total) by mouth daily. 08/12/2022 Active levothyroxine (SYNTHROID, LEVOTHROID) 100 MCG tablet Take 1 tablet (100 mcg total) by mouth daily. 09/29/2022 Active aspirin 81 mg Cap Take 81 mg by mouth daily. Active cetirizine (ZyrTEC) 10 MG tablet Take 1 tablet (10 mg total) by mouth daily. 03/02/2023 Active fluticasone propionate (FLONASE) 50 mcg/actuation nasal spray 1 spray 2 (two) times daily. 03/02/2023 Active atorvastatin (LIPITOR) 10 MG tablet Take 1 tablet (10 mg total) by mouth daily. Active alendronate (FOSAMAX) 70 MG tablet Take 1 tablet (70 mg total) by mouth once a week. 04/02/2024 Active evolocumab (Repatha SureClick) 140 mg/mL pen injector Inject 140 mg under the skin every 14 (fourteen) days. Active Social History Tobacco Use Types Packs/Day Years [...] Date Martin rded Speak language other than Citizen [place] at home Not on file 10/02/2023 Want [...] Mass Index 24.7 06/01/2025 8:28 AM EDT Plan of Treatment Upcoming Encounters Date Type Department Care Team (Late st Contact Info) Description 11/28/2025 8:30 AM EDT Office Visit [facility] - [place] [address] [place] [address] Martine Osorio APRN [address] [place] [address] 04/24/2026 7:45 AM EDT Appointment [facility] [address] [facility] [address] [place] [address] Medical Devices Implanted Type Area Face Cleaner Device Identifier Shelf Expiration Date Model / Serial / Lot Heart Valve [employer] [id number] / / Procedures Procedure Name Priority Date/Time Associated Diagnosis Comments MM DIGITAL MAMMO SCREEN WITH NAGA BILATERAL Routine 04/18/2025 8:24 AM EDT Visit for screening mammogram from Last 3 Months Results * MM digital mammo screen with naga bilateral (04/18/2025 8:24 AM EDT) Anatomical Region Laterality Modality Breast Bilateral Mammography 04/19/2025 6:12 AM EDT Impressions 04/19/2025 6:13 AM EDT No mammographic evidence of malignancy BI-RADS CATEGORY: 1 , NEGATIVE. RECOMMENDED FOLLOW-UP: Annual mammography A letter including results and recommendations was sent to the patient. Density notification was included for patients with pattern 3 or 4 breast tissue. Patient information was entered into a reminder system with a target due date for the next mammogram. NOTES: Mammography does not detect approximately 10-15% of breast cancers. Physical examination of the breasts by a physician and regular monthly breast self examinations are integral parts of breast cancer screening. A normal mammogram does not exclude breast cancer if there is an abnormal finding on physical examination. When clinically indicated, a biopsy should not be postponed because of a normal mammogram report. Narrative 04/19/2025 6:13 AM EDT BILATERAL SCREENING DIGITAL MAMMOGRAPHY CLINICAL INDICATION: Routine screening TECHNIQUE: Bilateral CC and MLO views were obtained with digital acquisitions with 3D tomosynthesis. The study was read with the assistance of CAD. COMPARISON: Exams dating back to 2019 DENSITY: The breasts are heterogeneously dense, which may obscure small masses FINDINGS: There are no spiculated masses, areas of distortion or suspicious calcifications. Nora Foster PA-C IMG MAMMOGRAPHY ORDERABLES nal Result from Last 3 Months Insurance [facility] Care Teams Lamp Developer Relationship Specialty Start Date End Date Nora Foster PA-C [address] [place] [address] PCP - General Physician Employment Coach 10/16/22 Belia Wilson MD [address] [facility] [address] [place] [address] Hematology and Oncology 10/20/23
--- OUTSIDE RECORDS SUMMARY | 2025-07-04 08:02 | XMS_ITS | Clinical Summary ---
Author Organization [employer] ([place], [place], [place], [place]) Address [address] [place] [address] Care Team Providers Care Metal Molder Name Role Phone Nora Foster PA-C Primary Care Provider [phone] Belia Wilson MD Unavailable Allergies No known active allergies Medications metoprolol [...] the skin every 14 (fourteen) days. Active Encounters Date Type Department Care Team Description 06/01/2025 8:30 AM EDT Office Visit [facility] - [place] [address] [place] [phone] Norma Singh PA-C Family history of breast cancer (Primary Dx); Encounter for breast cancer screening using non-mammogram modality 06/01/2025 Travel 04/18/2025 8:00 AM EDT - 04/18/2025 11:59 PM EDT Hospital Encounter [facility] [address] [place] [address] Nora Foster PA-C Visit for screening mammogram (Primary Dx) Discharge Disposition: Home or Self Care 04/18/2025 Outside Orders [facility] [address] [facility] [address] [place] [address] Nora Foster PA-C Visit for screening mammogram (Primary Dx) 04/18/2025 Travel from Last 3 Months Family History Medical History Relation Name Comments Cancer Brother Mitral valve prolapse Daughter Hypertension Father No Known Problem Maternal Aunt No Known Problem Maternal Grandfather No Known Problem Maternal Grandmother No Known Problem Maternal Uncle Cancer Mother No Known Problem Other No Known Problem Paternal Aunt No Known Problem Paternal Grandfather No Known Problem Paternal Grandmother No Known Problem Paternal Uncle Cancer Sister Mitral valve prolapse Son Relation Name Status Comments Brother Daughter Father Maternal Aunt Maternal Grandfather Maternal Grandmother Maternal Uncle Mother Other Paternal Aunt Paternal Grandfather Paternal Grandmother Paternal Uncle Sister Son Social History Tobacco Use Types Packs/Day Years [...] Date Martin rded Speak language other than Persian at home Not on file 10/02/2023 Want [...] Description 11/28/2025 8:30 AM EDT Office Visit [facility] - [place] [address] [place] [phone] Martine Osorio APRN [address] [place] [address] 04/24/2026 7:45 AM EDT Appointment [facility] [address] [facility] [address] [place] [address] Health Maintenance Due Date Last Done Comments CT Colonography 1964 Colonoscopy 1964 Colorectal Cancer Screening 1964 FOBT/FIT 1964 Fit-DNA (Cologuard) 1964 Sigmoidoscopy 1964 Depression Screening (12+) 1976 HIV Screening 1979 Hepatitis C Screening 1982 Pap Smear 1985 Pneumococcal 50+ years (1 of 1 - PCV) 2014 Lipid Panel 01/24/2025 01/25/2020 COVID-19 VACCINE ( season) 2025 Influenza Vaccine (#1) 2025 Tobacco Cessation Counseling and Screening (12+) 06/01/2026 06/01/2025 DTAP/TDAP/TD VACCINES (2 - T d or Tdap) 08/05/2026 08/05/2016 Breast Cancer Screening 04/18/2027 04/18/20 25, 04/05/2024, 03/31/2023 Shingles Vaccine (Zoster) Completed 03/11/2019, Medical Devices Implanted Type Area Digital Marketing Apprentice Device Identifier Shelf Expiration Date Model / [...] calcifications. Nora Foster PA-C IMG MAMMOGRAPHY ORDERABLES Fi nal Result from Last 3 Months Insurance [facility] Care Teams Metal Molder Relationship Specialty Start Date End Date Nora Foster PA-C [address] [place] [address] PCP - General Physician Entertainment Musician 10/16/22 Belia Wilson MD [address] [facility] [address] [place] [address] Hematology and Oncology 10/20/23
== END 2025-07-04 23:59 | disposition home or self-care (01) ==
LOC: RT 08:00
PROVIDERS: PCP Physician Assistant; Visit Provider Physician Assistant
DX: T82.03XA Leakage of heart valve prosthesis, initial encounter (principal); I34.0 Nonrheumatic mitral (valve) insufficiency; I51.7 Cardiomegaly; I25.10 Atherosclerotic heart disease of native coronary artery without angina pectoris; I42.9 Cardiomyopathy, unspecified; Z95.3 Presence of xenogenic heart valve; Z95.1 Presence of aortocoronary bypass graft
CPT/HCPCS: 93306